=== PATIENT | female | born 1940 | race African-American/Black ===

== ENCOUNTER 2019-07-29 09:14 | Inpatient (IN) | payer MEDICARE, OTHER ==
[2019-07-29 09:58] LABS: #Lymphocytes 1.3 thou/uL (1.20-3.40); #Monocytes 0.5 thou/uL (0.11-0.59); #Neutrophils 6.5 thou/uL (1.40-6.50); %Basophils 0.3 % (0.0-1.0); %Eosinophils 0.1 % (0.0-10.0); %Lymphocytes 15.3 % (21.0-51.0); %Monocytes 5.5 % (0.0-10.0); %Neutrophils 78.8 % (42.0-75.0); Hemoglobin 14.2 g/dL (12.0-16.0); Mean Corpuscular HGB CONC 32.2 g/dL (32.0-36.0); Mean Corpuscular Hemoglobin 25.4 pg (27.0-31.0); Mean Platelet Volume 8.5 fL (7.4-10.4); Platelet Count 174 thou/uL (130-400); RBC Distribution Width 13.5 % (11.5-14.5); Red Blood Cell (RBC) Count 5.58 mill/uL (4.20-5.40); White Blood Cell (WBC) Count 8.2 thou/uL (4.8-10.8)
[2019-07-29] MEDS ORDERED: hydrALAZINE 20 MG/ML VIAL ONE (10:02)
[2019-07-29 10:07] LABS: Bacteria/HPF None Seen HPF (None Seen); Bilirubin Negative (Negative); Blood, Urine 1+ (Negative); Clarity Turbid (Clear); Glucose, Urine (Dipstick) 70 mg/dL (Negative); Leukocyte Negative Leu/uL (Negative); Mucous/LPF 1+ LPF (<2+); Nitrite Negative (Negative); Protein, Urine (Dipstick) 300 mg/dL (Neg-Trace); RBC/HPF 0-3 HPF (0-3); Squamous Epithelial 0-3 HPF (0-3); Urobilinogen Normal mg/dL (Less than 2)
--- NOTE | 2019-07-29 10:43 | CT ---
BRAIN CT WITHOUT IV CONTRAST: History: Altered mental status. FINDINGS: Several aneurysm clips overlie the suprasellar region. There is bilateral atrophy and chronic white m atter ischemic change. Prominent sinus mucosal changes, particularly the right maxillary and portions of the right sphenoid sinus. The mastoids appear clear of acute process. No mass effect or midline s hift. No acute hemorrhage. IMPRESSION: Atrophy and chronic white matter ischemic changes. Aneurysm clips overlying the suprasellar region. R ight maxillary and sphenoid sinus mucosal disease with near complete opacification of the right maxil baudilio sinus. No mass or bleed or other acute process. POS: [facility]
--- NOTE | 2019-07-29 11:10 | RAD ---
CHEST ONE VIEW: History: Altered mental status, forgetfullness. Incontinence. Comparison: 10-29-15 FINDINGS: Post underlying sternotomy. Heart size is within normal limits. No confluent pneumonia, overt edema o r pleural effusion. IMPRESSION: No significant acute intrathoracic disease. Stable from prior exam. POS: [facility]
[2019-07-29 11:19] LABS: ALT (SGPT) 17 U/L (8-55); AST (SGOT) 34 U/L (5-34); Albumin 4.1 g/dL (3.4-4.8); Alkaline Phosphatase 145 U/L (40-110); Anion Gap 18 mmol/L (10-20); BUN (Urea Nitrogen) 7 mg/dL (9.8-20.1); Bilirubin, Total 0.5 mg/dL (0.2-1.2); Calc. Creatinine Clearance 0 mL/min (70-130); Calcium 11.1 mg/dL (7.8-10.44); Carbon Dioxide 18 mmol/L (23-31); Chloride 98 mmol/L (98-107); Estimated GFR-MDRD Greater than 90; Globulin 5.4 g/dL (2.4-3.5); Glucose 112 mg/dL (83-110); Potassium 5.2 mmol/L (3.5-5.1); Protein, Total 9.5 g/dL (6.0-8.3); Sodium 129 mmol/L (136-145)
[2019-07-29] MEDS ORDERED: Ondansetron PF 4 MG/2 ML Vial IVP PRN (11:55)
[2019-07-29] MEDS ORDERED: Bisacodyl 10 MG SUPP PR PRN (11:55)
[2019-07-29] MEDS ORDERED: Senokot S 8.6-50 MG TAB PO PRN (11:55)
[2019-07-29] MEDS ORDERED: hydrALAZINE 20 MG/ML VIAL SLOW IVP PRN (11:55)
[2019-07-29] MEDS ORDERED: Calcium Carbonate 500 MG ChewTAB PO PRN (11:55)
[2019-07-29] MEDS ORDERED: Guaifenesin DM 100-10/5 ML UDCUP PO PRN (11:55)
[2019-07-29] MEDS ORDERED: Acetaminophen 325 MG TAB PO PRN (11:55)
--- NOTE | 2019-07-29 13:00 | HP ---
REASON FOR ADMISSION: Altered mental state, hyponatremia, possible CVA, hyperkalemia, dehydration, and metabolic acidosis. HISTORY OF PRESENTING ILLNESS: The patient was brought to emergency room by concerned family members as she was more confused and not oriented. Currently, there are no family members at bedside. I have tried calling them and I cannot reach both the numbers that are available on [employer] that is Alex Bacon and Alex Brandt. She does wake up to verbal stimulation but cannot provide any additional elements of history. She moves her left upper and lower extremities freely. She can move her right upper extremity some but not the right lower extremity. Further workup in the ER done showed no acute infarct on the CT. Chest x-ray was clear. Had lab abnormalities on the blood work. 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 Prior echo done in October 2015 shows ejection fraction of 65% to 70%. Aortic valve calcification but no stenosis. Possible parathyroid adenoma on a parathyroid scan done in March of 2016. Has had intracranial aneurysm with clips seen over the suprasellar region. CURRENT MEDICATIONS: Per prior records, the patient is on, 1. Aspirin 325 mg p.o. daily. 2. Coreg 6.25 mg twice daily. 3. Mucinex 1200 mg twice daily. 4. Hydrochlorothiazide 25 mg daily. 5. Moexipril 15 mg daily. 6. Crestor 20 mg daily. 7. Lasix 20 mg daily. 8. Spironolactone 12.5 mg daily. ALLERGIES: NO KNOWN DRUG ALLERGIES. PERSONAL HISTORY: Per prior records, does not abuse alcohol or drugs. No history of smoking. She lives with her family. FAMILY HISTORY: Cannot be obtained as the patient is not oriented. REVIEW OF SYSTEMS: Cannot be obtained as the patient is not oriented. CODE STATUS: Presumed to be full code as the patient is not oriented and I cannot reach family at present. PHYSICAL EXAMINATION: GENERAL: The patient is a 78-year-old female, who is currently not oriented, but not in distress. VITAL SIGNS: Blood pressure 170/84, pulse 70 per minute, respiratory rate 14 per minute, and temperature, the patient is afebrile to touch with no fever history. Saturating 94% on 2 L nasal cannula. NECK: Supple. No elevated JVD. HEENT: Eyes, pupils are 3 mm and sluggishly reacting to light. Oral cavity, mucous membranes are dry. No exudates or congestion. CARDIOVASCULAR: S1 and S2 heard. Murmur plus. Regular rhythm. RESPIRATORY: Air entry 1+ bilateral. Scattered rhonchi plus. No rales or wheezes. ABDOMEN: Soft. Bowel sounds heard. No tenderness, rigidity, or guarding. EXTREMITIES: No peripheral edema or calf tenderness. VASCULAR: Peripheral pulses 1+ bilateral. No ischemic ulcerations or gangrene. CENTRAL NERVOUS SYSTEM: No gross focal sign seen except for the patient not moving her right lower extremity. Reflexes are 2+ bilateral. Mild flattening of right nasolabial fold could be positional. Left Babinski is downgoing. Right Babinski is equivocal. Accurate strength cannot be tested as the patient is not oriented nor cooperative at present. PSYCHIATRIC: Cannot be assessed as the patient is not oriented. LABORATORY DATA: CT brain without contrast done showed no acute bleed or infarct. There is atrophy and chronic white matter ischemic changes seen. There are aneurysm clips overlying the suprasellar area. Right maxillary sinus is opacified. Chest x-ray done showed post CABG changes. No significant acute intrathoracic disease is seen. White count of 8, H and H 14 and 44, platelet count 174, MCV is 79 with 78% neutrophils. Sodium 129, potassium 5.2, serum bicarb is 18, serum glucose 112, BUN 7, creatinine 0.7. Lactic acid 1.6, serum calcium is 11, albumin is 4.1. Troponin I 0.22, alkaline phosphatase 145, AST and ALT within normal limits. CLINICAL IMPRESSION AND PLAN: The patient will be admitted to stroke unit for possible CVA on the right side, moderate dehydration, hyponatremia, metabolic acidosis, hypercalcemia, acute metabolic encephalopathy. She will be placed on half-normal saline at 75 mL per hour. We will continue aspirin, Lipitor at 40 mg daily, Coreg 6.25 mg twice daily, p.r.n. IV medications if needed, ceftriaxone for maxillary disease with a suspicion for right maxillary sinusitis. MRI brain without contrast. Echo with 2D Doppler for LV function. Blood cultures and urine cultures have been obtained. COVID-19 test has also been ordered. The patient likely has very low probability for coronavirus. She will be on clear liquid diet until she wakes up fully. We will follow stroke evidence based protocol as well. Neurology consult with Dr. Cathy Platt, who is on-call will be obtained as well. When the patient wakes up or when family responds, we will ascertain if the patient had prior surgery for her parathyroids. Her serum calcium is 11 with normal albumin. If needed, she will be placed on Lasix. She is not overly hypercalcemic at present. There is no bleed on the CT scan of the brain with prior history of aneurysmal clipping. PT, OT, and Speech evaluations will be requested. Job ID: [id number] MTDD
[2019-07-29] MEDS: cefTRIAXone\\ROCEPHIN 2 GM in Sodium Chloride 0.9% 100 ML IVPB SCH (15:06)
[2019-07-29] MEDS: Sodium Chloride 0.45% 1,000 ML IV SCH (15:07)
[2019-07-29 18:24] VITALS: BMI 37.5
[2019-07-29 18:42] LABS: Syphilis Antibody Nonreactive (Nonreactive); Syphilis Antibody Index 0.06 S/CO (<1.00 Non-Reactive)
[2019-07-29 18:56] LABS: Amphetamine Not Detected (NotDetected); Barbiturates Screen Not Detected (NotDetected); Benzodiazepine Screen Not Detected (NotDetected); Cocaine Metabolite Screen Not Detected (NotDetected); Medtox Control Line Valid? VALID (VALID); Medtox Reader # READER 4; Methadone Not Detected (NotDetected); Methamphetamine Not Detected (NotDetected); Opiate Screen Not Detected (NotDetected); Oxycodone Screen Not Detected (NotDetected); Phencyclidine (PCP) Not Detected (NotDetected); THC/Cannabinoid Screen Not Detected (NotDetected); Tricyclic Screen Not Detected (NotDetected)
[2019-07-29] MEDS: Atorvastatin Calcium 40 MG TAB PO SCH ×2 (20:08→20:52)
[2019-07-29] MEDS: Carvedilol 6.25 MG TAB PO SCH ×2 (20:08→20:52)
[2019-07-29] MEDS: Acetaminophen 650 MG Suppository PR PRN (22:55)
[2019-07-30] MEDS: Sodium Chloride 0.45% 1,000 ML IV SCH ×2 (04:31→17:26)
[2019-07-30 06:02] LABS: #Lymphocytes 1.5 thou/uL (1.20-3.40); #Neutrophils 6.7 thou/uL (1.40-6.50); %Basophils 0.1 % (0.0-1.0); %Eosinophils 0.2 % (0.0-10.0); %Lymphocytes 16.6 % (21.0-51.0); %Monocytes 10.5 % (0.0-10.0); %Neutrophils 72.6 % (42.0-75.0); Hemoglobin 13.5 g/dL (12.0-16.0); Mean Corpuscular HGB CONC 33.7 g/dL (32.0-36.0); Mean Corpuscular Hemoglobin 26.2 pg (27.0-31.0); Mean Platelet Volume 8.2 fL (7.4-10.4); Platelet Count 147 thou/uL (130-400); RBC Distribution Width 13.4 % (11.5-14.5); Red Blood Cell (RBC) Count 5.14 mill/uL (4.20-5.40); White Blood Cell (WBC) Count 9.2 thou/uL (4.8-10.8)
[2019-07-30 06:22] LABS: Anion Gap 14 mmol/L (10-20); BUN (Urea Nitrogen) 7 mg/dL (9.8-20.1); Calc. Creatinine Clearance 104 mL/min (70-130); Calcium 10.7 mg/dL (7.8-10.44); Carbon Dioxide 19 mmol/L (23-31); Cardiac Risk 3.2 (Less than 4.5); Chloride 99 mmol/L (98-107); Cholesterol 112 mg/dl (< 200 Desired); Estimated GFR-MDRD Greater than 90; Glucose 92 mg/dL (83-110); HDL Cholesterol 35 mg/dL (>60 Neg Risk); LDL Cholesterol, Calculated 67 mg/dL; Potassium 3.2 mmol/L (3.5-5.1); Sodium 129 mmol/L (136-145); Triglycerides 51 mg/dL (Less than 150)
[2019-07-30] MEDS ORDERED: Aspirin 325 mg Enteric Coated Tablet PO SCH (09:00)
[2019-07-30] MEDS ORDERED: FLUTICASONE FUROATE EA NARE SCH (09:00)
[2019-07-30] MEDS ORDERED: Prevnar 13-Val Conj/PF 0.5 ML SYRINGE IM ONE (09:00)
[2019-07-30] MEDS: Carvedilol 6.25 MG TAB PO SCH ×2 (09:25→21:48)
[2019-07-30] MEDS: Enoxaparin Sodium 40 MG/0.4 ML SYRINGE SC SCH (09:25)
--- NOTE | 2019-07-30 10:38 | PDOC.HOSPP ---
- Subjective Encounter Date: 07/30/19 Encounter Time: 08:00 Subjective: not oriented, is in restraints no sob, does not follow verbal stimuli moves all extremities except right lower - Objective Vital Signs & Weight: Vital Signs (12 hours) Temp Pulse Resp BP Pulse Ox 07/30/19 04:00 98.7 F 86 22 H 129/101 H 97 07/30/19 02:03 106 H 178/106 H 07/29/19 23:15 99.5 F 121 H 22 H 185/114 H 96 Weight Weight 205 lb 7.533 oz I&O: 07/29/19 07/30/19 07/31/19 06:59 06:59 06:59 Intake Total 550 Output Total 1200 Balance -650 Result Diagrams: 07/30/19 05:52 07/30/19 05:52 Hospitalist ROS - Medication Medications: Active Medications Generic Name Dose Route Start Last Admin Trade Name Freq PRN Reason Stop Dose Admin Acetaminophen 650 mg 07/29/19 11:55 07/29/19 22:55 Tylenol [place] 650 mg Q4H PRN Administration Headache/Fever/Mild Pain (1-3) Aspirin 325 mg 07/30/19 09:00 07/30/19 09:25 Ecotrin PO 325 mg DAILY MICHAEL Administration Atorvastatin Calcium 40 mg 07/29/19 21:00 07/29/19 20:52 Lipitor PO Not Given HS MICHAEL Carvedilol 6.25 mg 07/29/19 21:00 07/30/19 09:25 Coreg PO 6.25 mg BID MICHAEL Administration Enoxaparin Sodium 40 mg 07/30/19 09:00 07/30/19 09:25 Lovenox SC 40 mg 0900 MICHAEL Administration Sodium Chloride 1,000 mls @ 75 mls/hr 07/29/19 12:00 07/30/19 04:31 1/2 Normal Saline IV 1,000 mls .[id number] MICHAEL Administration Ceftriaxone Sodium 2 gm/ 100 mls @ 200 mls/hr 07/29/19 12:00 07/29/19 15:06 Sodium Chloride IVPB 100 mls Q24HR MICHAEL Administration - Exam General Appearance: ill appearing Eye: PERRL, anicteric sclera ENT: no oropharyngeal lesions, dry oral mucosa Neck: supple, no JVD Heart: RRR, no murmur Respiratory: no wheezes, no rales Gastrointestinal: soft, non-tender, non-distended, normal bowel sounds Extremities: no cyanosis, no edema Neurological: hemiplegia, speech deficit Hosp A/P (1) Acute CVA (cerebrovascular accident) Code(s): I63.9 - CEREBRAL INFARCTION, UNSPECIFIED Status: Suspected (2) Acute metabolic encephalopathy Code(s): G93.41 - METABOLIC ENCEPHALOPATHY Status: Acute (3) Metabolic acidosis Code(s): E87.2 - ACIDOSIS Status: Acute (4) Dehydration Code(s): E86.0 - DEHYDRATION Status: Acute (5) CAD (coronary artery disease) Code(s): I25.10 - ATHSCL HEART DISEASE OF [place] CORONARY ARTERY W/O ANG PCTRS Status: Chronic Qualifiers: Coronary Disease-Associated Artery/Lesion type: bypass graft [place] vs. transplanted heart: [place] heart (6) HLD (hyperlipidemia) Code(s): E78.5 - HYPERLIPIDEMIA, UNSPECIFIED Status: Chronic Qualifiers: Hyperlipidemia type: unspecified Qualified Code(s): E78.5 - Hyperlipidemia , unspecified (7) HTN (hypertension) Code(s): I10 - ESSENTIAL (PRIMARY) HYPERTENSION Status: Chronic Qualifiers: Hypertension type: essential hypertension Qualified Code(s): I10 - Essential (primary) hypertension (8) RBBB Code(s): I45.10 - UNSPECIFIED RIGHT BUNDLE-BRANCH BLOCK Status: Chronic (9) Parathyroid adenoma Code(s): D35.1 - BENIGN NEOPLASM OF PARATHYROID GLAND Status: Suspected - Plan is still encephalopathic is seen moving left extremities better than right upper, not moving much of right LE await MRI await covid results, unlikely to have it? gentle iv hydration, speech eval for oral intake d/w son over phone this am, gave full updates, she is normally oriented and ambulates in the house, he lives with her. number to reach him is [phone] (phone # on [employer] is not accurate) prognosis is guarded, son wants her to be full code continue aspirin, lipitor, coreg, ceftiaxone for suspected uti, prelim blood cs are -ve, urine is still pending.
[2019-07-30] MEDS: cefTRIAXone\\ROCEPHIN 2 GM in Sodium Chloride 0.9% 100 ML IVPB SCH (12:38)
--- NOTE | 2019-07-30 14:54 | CON ---
DATE OF TELENEUROLOGY CONSULTATION: 07/30/2019 CHIEF COMPLAINT: Acute altered mental status. HISTORY OF PRESENT ILLNESS: The patient was completely unable to give us any medical history. Most of her history was obtained from her chart. The patient stares and looks around, but does not interact. Per chart, the patient was brought by concerned family members to the hospital because she was very confused and disoriented. She cannot provide much history. PREVIOUS MEDICAL HISTORY: Notable for coronary artery disease with coronary artery bypass graft, hypertension, obesity, dyslipidemia, polyp removal on colonoscopy , an EF of 65% to 70% with aortic valve calcification, and she also has history of parathyroid adenoma and intracranial aneurysm repair. MEDICATIONS AT HOME: Include: 1. Aspirin. 2. Coreg. 3. Mucinex. 4. Hydrochlorothiazide. 5. Moexipril. 6. Crestor. 7. Lasix. 8. Spironolactone. ALLERGIES: NO KNOWN DRUG ALLERGIES. FAMILY HISTORY: Cannot be obtained. REVIEW OF SYSTEMS: Unobtainable. SOCIAL HISTORY: Unobtainable. REVIEW OF SYSTEMS: Unobtainable. LABORATORY AND DIAGNOSTIC DATA: Lab workup so far: White count 9.2, hemoglobin 13.5, hematocrit 40, platelet count 147. Chemistry; sodium 129, potassium 3.2, chloride 99, bicarb 19, BUN 7, creatinine 0.68, glucose 92. Lipid profile is within normal limits. TSH 0.22. Urinalysis is negative. Syphilis serology is negative. Tox screen is also negative. She did have a CT of the head on arrival, which showed atrophy, chronic white matter ischemic changes, aneurysm clips overlying suprasellar region. Her MRI is currently pending. She is also COVID rule out. PHYSICAL EXAMINATION: VITAL SIGNS: Temperature 99.1, pulse 102, respiratory rate 18, O2 saturations 96, blood pressure 186/102. GENERAL APPEARANCE: Well-built, well-nourished lady, who seems to be comfortable in her bed and stares, looks around, but does not follow any commands. She does not interact at all. CHEST: Clear vesicular breathing. CARDIOVASCULAR: S1, S2 heard. No murmurs. NEUROLOGIC: Higher intellectual functions. Does not interact with the examiner. The most we could get out of her was thank you and she did say her name was Alix. She cannot follow any commands. Cranial nerves 2 through 12; pupils reactive to light bilaterally. She had a threat response bilaterally for vision testing. She seems to have normal hearing. No facial asymmetry noted. Tongue and oral cavity, unable to examine, the patient does not open her mouth. Motor examination; she does move extremities to stimulus. There might be a subtle weakness on the right side. Cerebellar and sensory, unable to examine. IMPRESSION AND PLAN: The patient is a 78-year-old lady with a some pre- existing medical problems. She is brought in with altered mental status. Primary metabolic issues seem to be hyponatremia, hypothyroidism, and her calcium is also abnormal. She has hypercalcemia and is pending further workup about her parathyroid status. At this time, she is cognitively impaired. She does not seem to follow commands and seems to have mainly metabolic encephalopathy. When able to, please obtain MRI to rule out any vascular issues and call Neurology as needed for further consultation and recommendations. I do not think this is a primary neurological issue such as a seizure or stroke or encephalitis based on her current workup. She seems to mostly have metabolic encephalopathy likely secondary to hyponatremia and hypercalcemia. Please call if you need any further assistance. Job ID: [id number] [facility]ITALFlaquito
[2019-07-30] MEDS: Atorvastatin Calcium 40 MG TAB PO SCH (21:48)
[2019-07-31 05:56] LABS: #Eosinphils 0.1 thou/uL (0.0-0.7); #Lymphocytes 1.2 thou/uL (1.20-3.40); #Monocytes 0.7 thou/uL (0.11-0.59); #Neutrophils 5.5 thou/uL (1.40-6.50); %Basophils 0.5 % (0.0-1.0); %Eosinophils 1.6 % (0.0-10.0); %Monocytes 9.1 % (0.0-10.0); %Neutrophils 72.9 % (42.0-75.0); Hemoglobin 13.4 g/dL (12.0-16.0); Mean Corpuscular HGB CONC 32.6 g/dL (32.0-36.0); Mean Corpuscular Hemoglobin 25.5 pg (27.0-31.0); Mean Corpuscular Volume 78.1 fL (78.0-98.0); Mean Platelet Volume 7.8 fL (7.4-10.4); Platelet Count 143 thou/uL (130-400); RBC Distribution Width 13.4 % (11.5-14.5); Red Blood Cell (RBC) Count 5.25 mill/uL (4.20-5.40); White Blood Cell (WBC) Count 7.6 thou/uL (4.8-10.8)
[2019-07-31 06:17] LABS: Anion Gap 13 mmol/L (10-20); BUN (Urea Nitrogen) 9 mg/dL (9.8-20.1); Calc. Creatinine Clearance 117 mL/min (70-130); Calcium 10.3 mg/dL (7.8-10.44); Carbon Dioxide 19 mmol/L (23-31); Chloride 102 mmol/L (98-107); Estimated GFR-MDRD Greater than 90; Glucose 79 mg/dL (83-110); Potassium 3.1 mmol/L (3.5-5.1); Sodium 131 mmol/L (136-145)
[2019-07-31] MEDS: Sodium Chloride 0.45% 1,000 ML IV SCH ×2 (06:24→22:11)
[2019-07-31] MEDS: Carvedilol 6.25 MG TAB PO SCH ×2 (08:20→20:47)
[2019-07-31] MEDS: Aspirin 325 MG TAB PO SCH (08:20)
[2019-07-31] MEDS: Enoxaparin Sodium 40 MG/0.4 ML SYRINGE SC SCH (08:20)
--- NOTE | 2019-07-31 08:45 | PDOC.HOSPP ---
- Subjective Encounter Date: 07/31/19 Encounter Time: 08:43 - Objective Vital Signs & Weight: Vital Signs (12 hours) Temp Pulse Resp BP BP Pulse Ox 07/31/19 04:16 97.0 F L 96 16 158/90 H 96 07/31/19 00:00 97.7 F 94 18 164/90 H 94 L 07/30/19 23:06 96 07/30/19 21:48 174/92 H Weight Weight 205 lb 7.533 oz I&O: 07/30/19 07/31/19 08/01/19 06:59 06:59 06:59 Intake Total 550 1845 Output Total 1200 1100 Balance -650 745 Result Diagrams: 07/31/19 05:50 07/31/19 05:50 Hospitalist ROS - Medication Medications: Active Medications Generic Name Dose Route Start Last Admin Trade Name Freq PRN Reason Stop Dose Admin Acetaminophen 650 mg 07/29/19 11:55 07/29/19 22:55 Tylenol IN 650 mg Q4H PRN Administration Headache/Fever/Mild Pain (1-3) Aspirin 325 mg 07/31/19 09:00 07/31/19 08:20 Aspirin PO 325 mg DAILY MICHAEL Administration Atorvastatin Calcium 40 mg 07/29/19 21:00 07/30/19 21:48 Lipitor PO 40 mg HS MICHAEL Administration Carvedilol 6.25 mg 07/29/19 21:00 07/31/19 08:20 Coreg PO 6.25 mg BID MICHAEL Administration Enoxaparin Sodium 40 mg 07/30/19 09:00 07/31/19 08:20 Lovenox SC 40 mg 0900 MICHAEL Administration Sodium Chloride 1,000 mls @ 75 mls/hr 07/29/19 12:00 07/31/19 06:24 1/2 Normal Saline IV 1,000 mls .[id number] MICHAEL Administration Ceftriaxone Sodium 2 gm/ 100 mls @ 200 mls/hr 07/29/19 12:00 07/30/19 12:38 Sodium Chloride IVPB 100 mls Q24HR MICHAEL Administration - Exam Eye: PERRL, anicteric sclera ENT: normocephalic atraumatic, no oropharyngeal lesions Neck: supple, symmetric, no JVD, no thyromegaly Heart: RRR, no murmur, no gallops Respiratory: CTAB, no wheezes, no rales Gastrointestinal: soft, non-tender, non-distended Neurological: cranial nerve grossly intact Neurological - other findings: does not follow commands, spontaneously moves extremities Psychiatric: not oriented, flat affect Hosp A/P (1) Acute metabolic encephalopathy Code(s): G93.41 - METABOLIC ENCEPHALOPATHY Status: Acute (2) Dehydration Code(s): E86.0 - DEHYDRATION Status: Acute (3) Metabolic acidosis Code(s): E87.2 - ACIDOSIS Status: Acute (4) Acute CVA (cerebrovascular accident) Code(s): I63.9 - CEREBRAL INFARCTION, UNSPECIFIED Status: Suspected (5) Parathyroid adenoma Code(s): D35.1 - BENIGN NEOPLASM OF PARATHYROID GLAND Status: Suspected (6) CAD (coronary artery disease) Code(s): I25.10 - ATHSCL HEART DISEASE OF [place] CORONARY ARTERY W/O ANG PCTRS Status: Chronic Qualifiers: Coronary Disease-Associated Artery/Lesion type: bypass graft [place] vs. transplanted heart: [place] heart (7) HLD (hyperlipidemia) Code(s): E78.5 - HYPERLIPIDEMIA, UNSPECIFIED Status: Chronic Qualifiers: Hyperlipidemia type: unspecified Qualified Code(s): E78.5 - Hyperlipidemia , unspecified (8) HTN (hypertension) Code(s): I10 - ESSENTIAL (PRIMARY) HYPERTENSION Status: Chronic Qualifiers: Hypertension type: essential hypertension Qualified Code(s): I10 - Essential (primary) hypertension (9) RBBB Code(s): I45.10 - UNSPECIFIED RIGHT BUNDLE-BRANCH BLOCK Status: Chronic (10) Hypokalemia Code(s): E87.6 - HYPOKALEMIA Status: Acute (11) Hyponatremia Code(s): E87.1 - HYPO-OSMOLALITY AND HYPONATREMIA Status: Acute - Plan old records reviewed/req, DVT proph w/lovenox Admitted for CVA, Metabolic encephalopathy, CVA Replace electrolytes for hypokalemia and hyponatremia Continue PT/OT Continue aspirin and statin Pending MRI and echo Discuss placement
[2019-07-31 11:18] LABS: ANA Symphony (Qualitative) Negative (Negative); ANA Symphony (Quantitative) 0.3 Ratio (< 0.7 Negative); dsDNA IgG Antibody 1.8 IU/mL (<10 Negative)
[2019-07-31] MEDS ORDERED: Prevnar 13-Val Conj/PF 0.5 ML SYRINGE IM ONE (12:00)
[2019-07-31] MEDS: cefTRIAXone\\ROCEPHIN 2 GM in Sodium Chloride 0.9% 100 ML IVPB SCH (12:15)
[2019-07-31] MEDS: Labetalol HCl 100 MG/20 ML VIAL SLOW IVP PRN (19:24)
[2019-07-31] MEDS: Atorvastatin Calcium 40 MG TAB PO SCH (20:47)
[2019-08-01] MEDS: Labetalol HCl 100 MG/20 ML VIAL SLOW IVP PRN (04:23)
[2019-08-01] MEDS: Enoxaparin Sodium 40 MG/0.4 ML SYRINGE SC SCH (09:47)
[2019-08-01] MEDS: Carvedilol 6.25 MG TAB PO SCH ×3 (09:56→20:23)
[2019-08-01] MEDS: Aspirin 325 MG TAB PO SCH (09:56)
[2019-08-01] MEDS: Sodium Chloride 0.45% 1,000 ML IV SCH (12:17)
[2019-08-01] MEDS: cefTRIAXone\\ROCEPHIN 2 GM in Sodium Chloride 0.9% 100 ML IVPB SCH (12:18)
[2019-08-01] MEDS ORDERED: Lorazepam 2 MG/ML VIAL SLOW IVP SCH (13:00)
[2019-08-01] MEDS: Lactated Ringer's 1,000 ML IV SCH (13:30)
--- NOTE | 2019-08-01 15:04 | PDOC.HOSPP ---
- Subjective Encounter Date: 08/01/19 Encounter Time: 15:00 Subjective: not speaking - Objective Vital Signs & Weight: Vital Signs (12 hours) Temp Pulse Pulse Pulse Resp BP BP 08/01/19 12:17 08/01/19 12:12 97.5 F L 115 H 20 08/01/19 10:17 121 H 122 H 186/104 H 08/01/19 10:13 121 H 122 H 186/104 H 08/01/19 08:00 97.9 F 111 H 20 08/01/19 06:27 08/01/19 04:23 115 H 208/110 H 08/01/19 04:10 99.8 F H 20 BP BP Pulse Ox 08/01/19 12:17 208/116 H 08/01/19 12:12 175/134 H 94 L 08/01/19 10:17 164/134 H 08/01/19 10:13 164/134 H 08/01/19 08:00 144/100 H 96 08/01/19 06:27 182/112 H 08/01/19 04:23 08/01/19 04:10 94 L Weight Admit Weight 205 lb 7.52 oz Weight 205 lb 7.52 oz I&O: 07/31/19 08/01/19 08/02/19 06:59 06:59 06:59 Intake Total 1845 939 Output Total 1100 1100 Balance 745 -161 Result Diagrams: 07/31/19 05:50 07/31/19 05:50 Hospitalist ROS - Review of Systems ROS unobtainable: due to mental status - Medication Medications: Active Medications Generic Name Dose Route Start Last Admin Trade Name Freq PRN Reason Stop Dose Admin Acetaminophen 650 mg 07/29/19 11:55 07/29/19 22:55 Tylenol [place] 650 mg Q4H PRN Administration Headache/Fever/Mild Pain (1-3) Aspirin 325 mg 07/31/19 09:00 08/01/19 09:56 Aspirin PO Not Given DAILY [facility] Atorvastatin Calcium 40 mg 07/29/19 21:00 07/31/19 20:47 Lipitor PO Not Given HS [facility] Carvedilol 6.25 mg 07/29/19 21:00 08/01/19 09:56 Coreg PO Not Given BID [facility] Enoxaparin Sodium 40 mg 07/30/19 09:00 08/01/19 09:47 Lovenox SC 40 mg 0900 MICHAEL Administration Ceftriaxone Sodium 2 gm/ 100 mls @ 200 mls/hr 07/29/19 12:00 08/01/19 12:18 Sodium Chloride IVPB 100 mls Q24HR MICHAEL Administration Lactated Ringer's 1,000 mls @ 75 mls/hr 08/01/19 13:00 08/01/19 13:30 Lactated Ringer's IV 1,000 mls .[id number] MICHAEL Administration Labetalol HCl 20 mg 07/29/19 11:55 08/01/19 04:23 Normodyne SLOW IVP 20 mg Q1H PRN Administration BP > 220/110 Sodium Chloride 10 ml 07/29/19 11:55 07/31/19 20:18 Flush - Normal Saline IVF 10 ml PRN PRN Administration Saline Flush - Exam General Appearance: NAD Eye: PERRL, anicteric sclera ENT: normocephalic atraumatic, no oropharyngeal lesions Neck: supple, symmetric, no JVD Heart: RRR, no murmur, no gallops Respiratory: CTAB, no wheezes, no rales Gastrointestinal: soft, non-tender, non-distended Extremities: no cyanosis, no clubbing Skin: normal turgor, no lesions, no rashes Neurological - other findings: not following commands Hosp A/P (1) Acute metabolic encephalopathy Code(s): G93.41 - METABOLIC ENCEPHALOPATHY Status: Acute (2) Dehydration Code(s): E86.0 - DEHYDRATION Status: Acute (3) Metabolic acidosis Code(s): E87.2 - ACIDOSIS Status: Acute (4) Acute CVA (cerebrovascular accident) Code(s): I63.9 - CEREBRAL INFARCTION, UNSPECIFIED Status: Suspected (5) Parathyroid adenoma Code(s): D35.1 - BENIGN NEOPLASM OF PARATHYROID GLAND Status: Suspected (6) CAD (coronary artery disease) Code(s): I25.10 - ATHSCL HEART DISEASE OF [place] CORONARY ARTERY W/O ANG PCTRS Status: Chronic Qualifiers: Coronary Disease-Associated Artery/Lesion type: bypass graft [place] vs. transplanted heart: [place] heart (7) HLD (hyperlipidemia) Code(s): E78.5 - HYPERLIPIDEMIA, UNSPECIFIED Status: Chronic Qualifiers: Hyperlipidemia type: unspecified Qualified Code(s): E78.5 - Hyperlipidemia , unspecified (8) HTN (hypertension) Code(s): I10 - ESSENTIAL (PRIMARY) HYPERTENSION Status: Chronic Qualifiers: Hypertension type: essential hypertension Qualified Code(s): I10 - Essential (primary) hypertension (9) RBBB Code(s): I45.10 - UNSPECIFIED RIGHT BUNDLE-BRANCH BLOCK Status: Chronic (10) Hypokalemia Code(s): E87.6 - HYPOKALEMIA Status: Acute (11) Hyponatremia Code(s): E87.1 - HYPO-OSMOLALITY AND HYPONATREMIA Status: Acute - Plan Admitted for CVA, Metabolic encephalopathy, CTH did not show any acute changes Replace electrolytes for hypokalemia and hyponatremia: Ringer lactate Patient not eating now. May need TPN soon Continue PT/OT Continue aspirin and statin Pending MRI: Clips for aneurysm in the past. Not sure if that is MRI Compatible and echo results pendinh Discuss placement with family.
[2019-08-01] MEDS ORDERED: cloNIDine 0.2mg/24 Hour PATCH TD SCH (15:30)
[2019-08-01] MEDS: Atorvastatin Calcium 40 MG TAB PO SCH ×2 (20:13→20:23)
[2019-08-01 20:55] LABS: #Lymphocytes 1.1 thou/uL (1.20-3.40); #Monocytes 1.3 thou/uL (0.11-0.59); #Neutrophils 10.2 thou/uL (1.40-6.50); %Basophils 0.3 % (0.0-1.0); %Eosinophils 0.1 % (0.0-10.0); %Lymphocytes 8.4 % (21.0-51.0); %Monocytes 10.1 % (0.0-10.0); %Neutrophils 81.1 % (42.0-75.0); Hemoglobin 13.7 g/dL (12.0-16.0); Mean Corpuscular HGB CONC 33.8 g/dL (32.0-36.0); Mean Corpuscular Hemoglobin 26.4 pg (27.0-31.0); Mean Corpuscular Volume 78.1 fL (78.0-98.0); Platelet Count 151 thou/uL (130-400); RBC Distribution Width 13.3 % (11.5-14.5); Red Blood Cell (RBC) Count 5.17 mill/uL (4.20-5.40); White Blood Cell (WBC) Count 12.6 thou/uL (4.8-10.8)
[2019-08-01 21:09] LABS: Lactic Acid 1.2 mmol/L (0.5-2.2)
[2019-08-01 21:13] LABS: Anion Gap 15 mmol/L (10-20); BUN (Urea Nitrogen) 9 mg/dL (9.8-20.1); Calc. Creatinine Clearance 117 mL/min (70-130); Calcium 10.5 mg/dL (7.8-10.44); Carbon Dioxide 19 mmol/L (23-31); Chloride 99 mmol/L (98-107); Estimated GFR-MDRD Greater than 90; Glucose 101 mg/dL (83-110); Magnesium 1.9 mg/dL (1.6-2.6); Sodium 130 mmol/L (136-145)
[2019-08-01 21:20] LABS: Potassium 2.8 mmol/L (3.5-5.1)
[2019-08-01] MEDS ORDERED: Metoprolol Tartrate 5 MG/5 ML VIAL IVP SCH ×2 (22:00→23:00)
[2019-08-01] MEDS ORDERED: Potassium Chloride 40 MEQ in Sodium Chloride 0.9% 250 ML 250 ML IVPB SCH (22:00)
[2019-08-02] MEDS: Acetaminophen 650 MG Suppository PR PRN (01:40)
[2019-08-02] MEDS: Labetalol HCl 100 MG/20 ML VIAL SLOW IVP PRN ×4 (01:41→16:11)
[2019-08-02] MEDS ORDERED: Potassium Chloride 40 MEQ in Sodium Chloride 0.9% 250 ML 250 ML IVPB SCH (02:00)
[2019-08-02] MEDS: Lactated Ringer's 1,000 ML IV SCH ×3 (02:55→22:56)
[2019-08-02 06:28] LABS: Anion Gap 13 mmol/L (10-20); BUN (Urea Nitrogen) 10 mg/dL (9.8-20.1); Calc. Creatinine Clearance 119 mL/min (70-130); Calcium 10.5 mg/dL (7.8-10.44); Carbon Dioxide 20 mmol/L (23-31); Chloride 104 mmol/L (98-107); Estimated GFR-MDRD Greater than 90; Glucose 93 mg/dL (83-110); Potassium 3.9 mmol/L (3.5-5.1); Sodium 133 mmol/L (136-145)
--- NOTE | 2019-08-02 07:34 | RAD ---
PORTABLE CHEST: DATE: 08/02/2019. PROVIDED CLINICAL HISTORY: Tachypnea. FINDINGS: Comparison 07/29/2019. The cardiac silhouette appears enlarged, which may be at least partially on th e basis of portable technique. Median sternotomy changes and atherosclerosis are redemonstrated. Pr ominence of the pulmonary vasculature and pulmonary interstitium. No focal consolidation, pleural fl uid, or pneumothorax apparent. IMPRESSION: Findings suggestive congestive failure/volume overload. POS: JUAN A
[2019-08-02] MEDS: Enoxaparin Sodium 40 MG/0.4 ML SYRINGE SC SCH (08:42)
[2019-08-02] MEDS: Aspirin 325 MG TAB PO SCH (08:51)
[2019-08-02] MEDS: Carvedilol 6.25 MG TAB PO SCH ×2 (08:51→20:50)
--- NOTE | 2019-08-02 14:01 | EKG ---
Test Reason : STAT Blood Pressure : / mmHG Vent. Rate : 128 BPM Atrial Rate : 128 BPM P-R Int : 114 ms QRS Dur : 136 ms QT Int : 354 ms P-R-T Axes : 023 161 025 degrees QTc Int : 516 ms Sinus tachycardia Indeterminate axis Right bundle branch block Abnormal ECG When compared with ECG of 29-JUL-2019 09:43, (Unconfirmed) Premature atrial complexes are no longer Present Vent. rate has increased BY 46 BPM QRS axis Shifted right Confirmed by DR. Amina WALKER (3) on 08/02/2019 2:01:23 PM Referred By: JOSÉ LUIS Confirmed By:DR. Amina WALKER
--- NOTE | 2019-08-02 15:15 | PDOC.HOSPP ---
- Subjective Encounter Date: 08/02/19 Encounter Time: 15:14 non-verbal - Objective Vital Signs & Weight: Vital Signs (12 hours) Temp Pulse Pulse Resp BP BP BP 08/02/19 13:21 112 H 194/92 H 08/02/19 11:47 107 H 26 H 129/84 08/02/19 09:55 157/80 H 08/02/19 09:19 242/142 H 08/02/19 08:51 178/125 H 08/02/19 08:00 97.9 F 116 H 17 200/105 H 08/02/19 06:04 115 H 184/106 H Pulse Ox 08/02/19 13:21 08/02/19 11:47 96 08/02/19 09:55 08/02/19 09:19 08/02/19 08:51 08/02/19 08:00 95 08/02/19 06:04 Weight Admit Weight 205 lb 7.52 oz Weight 205 lb 7.52 oz I&O: 08/01/19 08/02/19 08/03/19 06:59 06:59 06:59 Intake Total 939 1482 Output Total 1100 750 Balance -161 732 Result Diagrams: 08/01/19 20:42 08/02/19 06:00 Hospitalist ROS - Review of Systems ROS unobtainable: due to mental status - Medication Medications: Active Medications Generic Name Dose Route Start Last Admin Trade Name Freq PRN Reason Stop Dose Admin Acetaminophen 650 mg 07/29/19 11:55 08/02/19 01:40 Tylenol [place] 650 mg Q4H PRN Administration Headache/Fever/Mild Pain (1-3) Aspirin 325 mg 07/31/19 09:00 08/02/19 08:51 Aspirin PO Not Given DAILY [facility] Atorvastatin Calcium 40 mg 07/29/19 21:00 08/01/19 20:23 Lipitor PO Not Given HS MICHAEL Carvedilol 6.25 mg 07/29/19 21:00 08/02/19 08:51 Coreg PO Not Given BID MICHAEL Enoxaparin Sodium 40 mg 07/30/19 09:00 08/02/19 08:42 Lovenox SC 40 mg 0900 MICHAEL Administration Hydralazine HCl 10 mg 07/29/19 11:55 08/01/19 16:04 Apresoline SLOW IVP 10 mg Q4H PRN Administration BP > 180/90 Lactated Ringer's 1,000 mls @ 75 mls/hr 08/01/19 13:00 08/02/19 02:55 Lactated Ringer's IV Not Given .[id number] MICHAEL Labetalol HCl 20 mg 07/29/19 11:55 08/02/19 09:19 Normodyne SLOW IVP 20 mg Q1H PRN Administration BP > 180/90 Sodium Chloride 10 ml 07/29/19 11:55 07/31/19 20:18 Flush - Normal Saline IVF 10 ml PRN PRN Administration Saline Flush - Exam General - other findings: awake, not alert Eye: PERRL, anicteric sclera ENT: normocephalic atraumatic, no oropharyngeal lesions Neck: supple, symmetric, no JVD, no thyromegaly Heart: RRR, no murmur, no gallops Respiratory: CTAB, no wheezes, no rales, no ronchi Gastrointestinal: soft, non-tender, non-distended, normal bowel sounds Neurological: speech deficit Neurological - other findings: not moving any extremities, not following commans not oriented, not eating, Hosp A/P (1) Acute metabolic encephalopathy Code(s): G93.41 - METABOLIC ENCEPHALOPATHY Status: Acute (2) Dehydration Code(s): E86.0 - DEHYDRATION Status: Acute (3) Metabolic acidosis Code(s): E87.2 - ACIDOSIS Status: Acute (4) Acute CVA (cerebrovascular accident) Code(s): I63.9 - CEREBRAL INFARCTION, UNSPECIFIED Status: Suspected (5) Parathyroid adenoma Code(s): D35.1 - BENIGN NEOPLASM OF PARATHYROID GLAND Status: Suspected (6) CAD (coronary artery disease) Code(s): I25.10 - ATHSCL HEART DISEASE OF [place] CORONARY ARTERY W/O ANG PCTRS Status: Chronic Qualifiers: Coronary Disease-Associated Artery/Lesion type: bypass graft [place] vs. transplanted heart: [place] heart (7) HLD (hyperlipidemia) Code(s): E78.5 - HYPERLIPIDEMIA, UNSPECIFIED Status: Chronic Qualifiers: Hyperlipidemia type: unspecified Qualified Code(s): E78.5 - Hyperlipidemia , unspecified (8) HTN (hypertension) Code(s): I10 - ESSENTIAL (PRIMARY) HYPERTENSION Status: Chronic Qualifiers: Hypertension type: essential hypertension Qualified Code(s): I10 - Essential (primary) hypertension (9) RBBB Code(s): I45.10 - UNSPECIFIED RIGHT BUNDLE-BRANCH BLOCK Status: Chronic (10) Hypokalemia Code(s): E87.6 - HYPOKALEMIA Status: Acute (11) Hyponatremia Code(s): E87.1 - HYPO-OSMOLALITY AND HYPONATREMIA Status: Acute - Plan Admitted for CVA, Metabolic encephalopathy, CTH did not show any acute changes Work up so far has been negative. Pending MRI: Clips for aneurysm in the past. Not sure if that is MRI Compatible and echo with preserved EF I strongly suspect CVA. Patient at home was Oriented X 3 and independent of ADL. This decline is sudden as per family Palliative care consulted for goasl of care, DC planning HTN: Cannot give any oral meds, started on Clonidine patch Replace electrolytes for hypokalemia and hyponatremia: Ringer lactate Patient not eating now. May need TPN/ PEG soon Continue PT/OT Continue aspirin and statin Discuss placement with family.
[2019-08-02] MEDS: Atorvastatin Calcium 40 MG TAB PO SCH (20:50)
[2019-08-03 08:24] LABS: #Eosinphils 0.2 thou/uL (0.0-0.7); #Monocytes 0.7 thou/uL (0.11-0.59); #Neutrophils 7.9 thou/uL (1.40-6.50); %Basophils 0.5 % (0.0-1.0); %Eosinophils 1.7 % (0.0-10.0); %Lymphocytes 10.3 % (21.0-51.0); %Monocytes 6.7 % (0.0-10.0); %Neutrophils 80.8 % (42.0-75.0); Hemoglobin 13.4 g/dL (12.0-16.0); Mean Corpuscular HGB CONC 32.9 g/dL (32.0-36.0); Mean Corpuscular Hemoglobin 26.4 pg (27.0-31.0); Mean Corpuscular Volume 80.3 fL (78.0-98.0); Mean Platelet Volume 8.4 fL (7.4-10.4); Platelet Count 133 thou/uL (130-400); RBC Distribution Width 13.9 % (11.5-14.5); Red Blood Cell (RBC) Count 5.08 mill/uL (4.20-5.40); White Blood Cell (WBC) Count 9.7 thou/uL (4.8-10.8)
[2019-08-03] MEDS: Carvedilol 6.25 MG TAB PO SCH ×2 (08:33→20:21)
[2019-08-03] MEDS: Aspirin 325 MG TAB PO SCH (08:34)
[2019-08-03] MEDS: Enoxaparin Sodium 40 MG/0.4 ML SYRINGE SC SCH (08:35)
[2019-08-03 08:45] LABS: ALT (SGPT) 10 U/L (8-55); AST (SGOT) 19 U/L (5-34); Albumin 3.1 g/dL (3.4-4.8); Alkaline Phosphatase 91 U/L (40-110); Anion Gap 14 mmol/L (10-20); BUN (Urea Nitrogen) 10 mg/dL (9.8-20.1); Bilirubin, Total 0.7 mg/dL (0.2-1.2); Calc. Creatinine Clearance 119 mL/min (70-130); Calcium 10.3 mg/dL (7.8-10.44); Carbon Dioxide 22 mmol/L (23-31); Chloride 103 mmol/L (98-107); Estimated GFR-MDRD Greater than 90; Globulin 3.8 g/dL (2.4-3.5); Glucose 115 mg/dL (83-110); Potassium 3.9 mmol/L (3.5-5.1); Protein, Total 6.9 g/dL (6.0-8.3); Sodium 135 mmol/L (136-145)
[2019-08-03] MEDS ORDERED: Nitroglycerin 0.1mg/Hour PATCH TD SCH (09:00)
[2019-08-03] MEDS ORDERED: Ergocalciferol 1.25 MG(50,000 UNITS) CAP PO SCH (09:00)
[2019-08-03 09:04] LABS: Phosphorus 1.7 mg/dL (2.3-4.7)
[2019-08-03 09:05] LABS: Vitamin D, 25 Hydroxy 4.2 ng/ml (> 30.0)
[2019-08-03] MEDS ORDERED: Potassium Phosphate 9 MMOL in Sodium Chloride 0.9% 100 ML IVPB SCH (10:00)
--- NOTE | 2019-08-03 15:02 | ULT ---
BILATERAL CAROTID DUPLEX ULTRASOUND INCLUDING COLOR AND SPECTRAL DOPPLER IMAGING: DATE: 08/03/2019 HISTORY: Stroke. Exam was somewhat limited; patient was confused and could not turn head to left for proper po sitioning. FINDINGS: Minimal intimal thickening in the proximal left ICA. PSV Right ICA: 64 cm/sec EDV: 19 cm/sec ICA/CCA Ratio: 0.9 PSV Left ICA: 94 cm/sec EDV: 18 cm/sec ICA/CCA Ratio: 1.0 Vertebral flow is antegrade. IMPRESSION: Mild intimal thickening. Evidence for carotid artery atherosclerotic vascular disease. No hemodynamically significant stenosis. POS: RRE
[2019-08-03] MEDS: Lactated Ringer's 1,000 ML IV SCH (18:34)
--- NOTE | 2019-08-03 19:07 | PDOC.HOSPP ---
- Subjective Encounter Date: 08/03/19 Encounter Time: 09:45 Subjective: pt up in bed follows some command but is unable to speak complete sentences. - Objective Vital Signs & Weight: Vital Signs (12 hours) Temp Pulse Resp BP BP Pulse Ox 08/03/19 16:00 98.9 F 100 18 131/98 H 96 08/03/19 12:50 116 H 115/60 08/03/19 11:35 98.3 F 108 H 16 181/105 H 96 08/03/19 08:47 129 H 144/70 H 08/03/19 08:33 144/70 H 08/03/19 07:30 98.2 F 111 H 24 H 190/85 H 95 Weight Admit Weight 205 lb 7.52 oz Weight 205 lb 7.52 oz I&O: 08/02/19 08/03/19 08/04/19 06:59 06:59 06:59 Intake Total 1482 1070 360 Output Total 750 1030 Balance 732 40 360 Result Diagrams: 08/03/19 08:14 08/03/19 08:14 Hospitalist ROS - Review of Systems Other: unable to obtain - Medication Medications: Active Medications Generic Name Dose Route Start Last Admin Trade Name Freq PRN Reason Stop Dose Admin Acetaminophen 650 mg 07/29/19 11:55 08/02/19 01:40 Tylenol [place] 650 mg Q4H PRN Administration Headache/Fever/Mild Pain (1-3) Aspirin 325 mg 07/31/19 09:00 08/03/19 08:34 Aspirin PO 325 mg DAILY MICHAEL Administration Atorvastatin Calcium 40 mg 07/29/19 21:00 08/02/19 20:50 Lipitor PO 40 mg HS MICHAEL Administration Carvedilol 6.25 mg 07/29/19 21:00 08/03/19 08:33 Coreg PO 6.25 mg BID MICHAEL Administration Enoxaparin Sodium 40 mg 07/30/19 09:00 08/03/19 08:35 Lovenox SC 40 mg 0900 MICHAEL Administration Ergocalciferol 1.25 mg 08/03/19 09:00 08/03/19 12:19 Drisdol PO 1.25 mg Q7DAYS MICHAEL Administration Hydralazine HCl 10 mg 07/29/19 11:55 08/01/19 16:04 Apresoline SLOW IVP 10 mg Q4H PRN Administration BP > 180/90 Labetalol HCl 20 mg 07/29/19 11:55 08/02/19 16:11 Normodyne SLOW IVP 20 mg Q1H PRN Administration BP > 180/90 Sodium Chloride 10 ml 07/29/19 11:55 07/31/19 20:18 Flush - Normal Saline IVF 10 ml PRN PRN Administration Saline Flush - Exam Neck: negative: supple, symmetric, no JVD, no thyromegaly, no lymphadenopathy, no carotid bruit, JVD Heart: negative: RRR, no murmur, no gallops, no rubs, normal peripheral pulses, irregular, diminshed peripheral pulses, murmur present, II/IV, III/IV Respiratory: negative: CTAB, no wheezes, no rales, no ronchi, normal chest expansion, no tachypnea, normal percussion, rales, rhonchi, tachypneic, wheezes Extremities: 1+ LE edema Neurological - other findings: moving all ext Hosp A/P (1) Acute metabolic encephalopathy Code(s): G93.41 - METABOLIC ENCEPHALOPATHY Status: Acute (2) HTN (hypertension) Code(s): I10 - ESSENTIAL (PRIMARY) HYPERTENSION Status: Chronic Qualifiers: Hypertension type: essential hypertension Qualified Code(s): I10 - Essential (primary) hypertension (3) Parathyroid adenoma Code(s): D35.1 - BENIGN NEOPLASM OF PARATHYROID GLAND Status: Suspected (4) HLD (hyperlipidemia) Code(s): E78.5 - HYPERLIPIDEMIA, UNSPECIFIED Status: Chronic Qualifiers: Hyperlipidemia type: unspecified Qualified Code(s): E78.5 - Hyperlipidemia , unspecified (5) Hypercalcemia Code(s): E83.52 - HYPERCALCEMIA Status: Acute (6) Low vitamin D level Code(s): R79.89 - OTHER SPECIFIED ABNORMAL FINDINGS OF BLOOD CHEMISTRY Status : Acute - Plan will replace vit d, she has a known parathyroid adenoma which is causing her hypercalcemia. She is currently on pureed diet. unable to get MRI due to aneurysm clips. will continue plavix/statin. will order carotid Doppler. she was on asa at home. will replace vit d level.
[2019-08-03] MEDS: Atorvastatin Calcium 40 MG TAB PO SCH (20:21)
[2019-08-04] MEDS: Clopidogrel Bisulfate 75 MG TAB PO SCH (09:45)
[2019-08-04] MEDS: Lisinopril 20 MG TAB PO SCH (09:45)
[2019-08-04] MEDS: Carvedilol 6.25 MG TAB PO SCH ×2 (09:46→20:37)
[2019-08-04] MEDS: Enoxaparin Sodium 40 MG/0.4 ML SYRINGE SC SCH (09:46)
--- NOTE | 2019-08-04 10:26 | PQF ---
CLINICAL DOCUMENTATION IMPROVEMENT CLARIFICATION FORM: ICD-10 Updated PLEASE DO AN ADDENDUM TO THE PROGRESS NOTE WITH ANY DOCUMENTATION UPDATES OR ADDITIONS AND CARRY THROUGH TO DC SUMMARY. THANK YOU. DATE: 08/04/19 ATTN: DR. MARIO Please exercise your independent, professional judgment in responding to the clarification form. Clinical indicators are provided on the bottom of this form for your review Please check appropriate box(s) to clarify if the following diagnosis has been ruled in or ruled out: CVA [ ] Ruled in diagnosis [ x ] Continue to treat [ ] Resolved [ ] Ruled out diagnosis [ ] Improving [ ] Cannot rule out diagnosis [ ] Other diagnosis [ ] Unable to determine In addition, please specify: Present on Admission (POA): [ x] Yes [ ] No [ ] Unable to determine For continuity of documentation, please document condition throughout progress notes and discharge summary. Thank You. CLINICAL INDICATORS - SIGNS / SYMPTOMS / LABS / RESULTS AND LOCATION IN MR PN 08/01: "I STRONGLY SUSPECT CVA" CONSULT NOTE 07/29: "I DO NOT THINK THIS IS A PRIMARY NEUROLOGICAL ISSUE SUCH SEIZURE OR STROKE OR ENCEPHALITIS BASED ON HER CURRENT WORKUP." RISKS: HYPONATREMIA (CONSULT 07/29) METABOLIC ACIDOSIS (CONSULT 07/29) ADVANCED AGE TREATMENT: NEURO CONSULT 07/[address] 07/29 CAROTID DOPPLER 08/02 [employer] Winform Viewer(This form is maintained as a part of the permanent medical record) 2014 [employer]. All Rights Reserved [email or web address]
--- NOTE | 2019-08-04 13:24 | PDOC.PALCO ---
Palliative Care Consult - Consult Details Requesting Physician: Dr Negron Reason for Consult: goals of care, advance directives assistance, family support - Pertinent HPI 78 year old female who resides at a private home with her son as primary caregiver. Prior to admission she required minimal assistance with ADL. Ambulatory. 07/28 she was transported to the emergency room for evaluation of altered mental status and confusion. No family present at time of admission. No triggering events to lead to the change in mental status. Admitted for further evaluation and management for suspected right sided CVA, dehydration, hyponatremia, metabolic acidosis, hypercalcemia, and acute metabolid encephalopathy. - Pertinent PMH CAD, HTN, CABG, Obesity - Social History Smoking Status: Never smoker Smoking: no tobacco exposure Alcohol Use: none Drug Use History: none Living Situation: other (Lives with family) - Medications MAR Reviewed: Yes - Allergies Allergies/Adverse Reactions: Allergies Allergy/AdvReac Type Severity Reaction Status Date / Time No Known Drug Allergies Allergy Verified 07/29/19 17:16 - Subjective Awake, able to speak in slow sentences with few words. Mild confusion, thus difficult to fully engage for a ROS - ROS Non Response: due to mental status Constitutional: alert, weakness - Objective Vital Signs: Vital Signs - Most Recent Temp Pulse Resp BP Pulse Ox 98.5 F 104 H 24 H 139/93 H 94 L 08/04/19 11:23 08/04/19 11:23 08/04/19 11:23 08/04/19 11:23 08/04/19 11:23 Palliative Performance Scale: 30 - Physical Exam Constitutional: NAD, confusion HEENT: EOMI, moist MMs, sclera anicteric Respiratory: no wheezing, unlabored breathing Cardiovascular: RRR Deviation from normal: murmur Gastrointestinal: soft, non-tender, incontinent Genitourinary: incontinent Musculoskeletal: no cyanosis, no clubbing, edema present Neurology: moves all 4 limbs Skin: cap refill <2 seconds Deviation from normal: Cheerful - Problem List (1) Palliative care encounter Code(s): Z51.5 - ENCOUNTER FOR PALLIATIVE CARE Current Visit: Yes Status: Acute (2) Acute metabolic encephalopathy Code(s): G93.41 - METABOLIC ENCEPHALOPATHY Current Visit: Yes Status: Acute (3) Acute CVA (cerebrovascular accident) Code(s): I63.9 - CEREBRAL INFARCTION, UNSPECIFIED Current Visit: Yes Status : Suspected - Plan/Recommendations Plan:Visited with both patient son Jordi and as per his request called and spoke with Karly Alex the patient daughter in law, who also works at [employer]. With both discussed goal of care as well as recent history of patient and functionality. Goal of Care is to rehab to optimal functional level, preferably in home setting. Continue with aggressive measures for sustaining life. Communicated with Jing KENDRICK Palliative Care will sign off as Goal of Care is identified, family support offered. If we can be of assistance in the future please reconsult our Team. [60] minutes spent on this encounter with >50% of the time in counseling and coordination of care. Thank you for this very appropriate consult.
[2019-08-04] MEDS: Atorvastatin Calcium 40 MG TAB PO SCH (20:37)
--- NOTE | 2019-08-05 00:07 | DIS ---
DATE OF ADMISSION: 07/29/2019 DATE OF DISCHARGE: 08/04/2019 DISCHARGE DIAGNOSES: 1. Acute metabolic encephalopathy, possible cerebrovascular accident. 2. Hypercalcemia. 3. Hyponatremia. 4. Hypertension. 5. Parathyroid adenoma. 6. Low vitamin D level. HOSPITAL COURSE: The patient is a very pleasant 78-year-old female, who initially presented to the hospital with change in mental status. She initially was treated for possible acute CVA, however, unable to do an MRI due to her aneurysm clips. She was seen by Neurology, who recommended an echo and carotid Dopplers. Her echo indicated an LV function of 55% to 60%, a moderately thickened aortic valve. Carotid Dopplers indicated some minimal intimal thickening in the proximal left ICA. The patient has a history of parathyroid adenoma. She did have an elevated parathyroid hormone. The patient's mentation improved. She was able to ambulate with Physical Therapy with a walker. She is able to feed herself. She is currently on a pureed diet. I did update the family. Family initially requested the patient to be discharged on 08/04. They stated that they would feel much better if we make sure that she had no other issues overnight. The patient's blood pressure medications were titrated up. She was on torsemide which I have discontinued. She will follow up with her Primary Care and also will do Home Health and Physical Therapy. HOME MEDICATIONS: 1. She was on aspirin, I have discontinued that. 2. Plavix 75 mg daily. 3. Coreg 12.5 twice a day. 4. Ergocalciferol 1.25 every 7 days. 5. Moexipril 15 mg twice a day, she was initially on daily. 6. Rosuvastatin 20 mg daily. PHYSICAL EXAMINATION: VITAL SIGNS: Temperature 97.7, pulse 99, respirations 16, saturations 96% on room air, blood pressure 142/64. GENERAL: She is awake, alert, and oriented x3. She does not appear in any distress. CV: S1, S2 present. No murmurs or gallops. ABDOMEN: Soft and nontender. Bowel sounds are present x2. EXTREMITIES: Mild edema. NEUROVASCULAR: She is moving all 4 extremities. Job ID: [id number]
--- NOTE | 2019-08-05 03:23 | DIS ---
DATE OF ADMISSION: 07/29/2019 DATE OF DISCHARGE: 08/04/2019 DISCHARGE DIAGNOSES: As of the following; 1. Acute metabolic encephalopathy. 2. Most likely stroke. 3. Hyponatremia, resolved. 4. Hypercalcemia, resolved. 5. Parathyroid adenoma. 6. Low vitamin D level. 7. Hypokalemia, also resolved. HOSPITAL COURSE: The patient is a 78-year-old female, who initially presented to the hospital with change in mental status. Per notes, it was noted that she was moving all extremities, however, was very confused. She ruled out. Her COVID was negative. She underwent a CT brain, which did not indicate any acute abnormalities. However, I did indicate that she did have a prior history of aneurysm clipping. She was unable to have an MRI done. Given the fact that the aneurysm clipping would be not compatible with MRI per Radiology, she was seen by Neurology. Echo and carotid Dopplers were ordered. The echo indicated an EF of 55% to 60% with mild concentric left ventricular hypertrophy and diastolic function could not be assessed with moderate thickening of the aortic valve and mild tricuspid regurgitation. She did have carotid Dopplers done, which indicated some minimal intimal thickening to the proximal left ICA. She throughout the hospital stay improved significantly. She was able to ambulate and was able to feed herself. Her sodium improved dramatically. She did have hypercalcemia. She does have a parathyroid adenoma, and her PTH level high was 2.78. Also, her vitamin D level was 4.2, which was replaced. Her procalcitonin was normal. Her TSH was 0.2, was low, but her free T4 was 1. I did speak with the patient's family about the patient's overall progression. They wanted the patient to be taken home if possible. Physical Therapy did work with the patient. She did well with a walker, and she will be discharged to home. MEDICATIONS: From home will be; 1. Carvedilol 12.5 twice a day. 2. Clopidogrel 75 mg daily. 3. Moexipril 15 mg increased to twice a day. 4. Ergocalciferol 1.25 every 7 days. 5. Rosuvastatin 20 mg daily. 6. . 7. I will also add potassium 20 mEq daily. I have recommended to take the torsemide only as needed. PHYSICAL EXAMINATION: VITAL SIGNS: On discharge, temperature of 98.1, pulse 93, respirations of 18, oxygen saturation is 96%, and blood pressure 139/93. GENERAL: She is awake, alert, and oriented x3. Does not appear in distress. CV: S1, S2 present. No murmurs, rubs, or gallops. ABDOMEN: Soft and nontender. Bowel sounds are present x2. EXTREMITIES: She is moving all extremities. She follows commands. Again, she will be discharged to home. She will follow up with her primary. I have asked them to use the torsemide only as needed. Because when she came in, there was some concern for possible dehydration. Her initial presentation could be a combination of hypercalcemia and hyponatremia. It could be metabolic related. However, an MRI would have been appropriate study to rule out CVA completely, which was not feasible given her aneurysm clipping. However, she completely is back to her baseline, which makes me think more it is metabolic rather than a stroke. However, since I do not have the MRI, I will treat her as possible stroke. In this case, I will change her aspirin to clopidogrel for assuming that she had a stroke and she failed therapy on aspirin. Job ID: [id number]
[2019-08-05 08:12] VITALS: BP 148/84; TEMP 97.5
[2019-08-05] MEDS: Enoxaparin Sodium 40 MG/0.4 ML SYRINGE SC SCH (08:56)
[2019-08-05] MEDS: Clopidogrel Bisulfate 75 MG TAB PO SCH (08:56)
[2019-08-05] MEDS: Carvedilol 6.25 MG TAB PO SCH (08:56)
[2019-08-05] MEDS: Lisinopril 20 MG TAB PO SCH (08:56)
[2019-08-08] MEDS ORDERED: cloNIDine 0.2mg/24 Hour PATCH TD SCH (09:00)
== END 2019-08-05 11:04 | disposition home health service (06) | DRG 64 ==
LOC: ERS 09:14 → 2SW 11:55 → OBSVTOIN 11:55
PROVIDERS: ADMIT Internal Medicine; ATTEND Internal Medicine
PROC: 8E0ZXY6 Isolation (ICD-10-PCS; principal; 2019-07-29)
DX: I63.9 Cerebral infarction, unspecified (principal); G93.41 Metabolic encephalopathy; R40.2342 Coma scale, best motor response, flexion withdrawal, at arrival to emergency department; E87.1 Hypo-osmolality and hyponatremia; E87.2 Acidosis; Z20.828 Contact with and (suspected) exposure to other viral communicable diseases; E83.52 Hypercalcemia; I10 Essential (primary) hypertension; D35.1 Benign neoplasm of parathyroid gland; E86.0 Dehydration; E87.5 Hyperkalemia; E78.5 Hyperlipidemia, unspecified; I25.10 Atherosclerotic heart disease of native coronary artery without angina pectoris; E66.9 Obesity, unspecified; I45.10 Unspecified right bundle-branch block; R79.89 Other specified abnormal findings of blood chemistry; I08.3 Combined rheumatic disorders of mitral, aortic and tricuspid valves; R29.720 NIHSS score 20; R40.2132 Coma scale, eyes open, to sound, at arrival to emergency department; R40.2242 Coma scale, best verbal response, confused conversation, at arrival to emergency department; E87.6 Hypokalemia; Z78.1 Physical restraint status; Z79.899 Other long term (current) drug therapy; Z79.82 Long term (current) use of aspirin; Z95.1 Presence of aortocoronary bypass graft; Z68.37 Body mass index [BMI] 37.0-37.9, adult; Z86.010 Personal history of colon polyps; Z95.828 Presence of other vascular implants and grafts
CPT/HCPCS: 36415; 51701; 70450; 71045; 80048; 80053; 80061; 80306; 81003; 81015; 82306; 83605; 83735; 83930; 83970; 84100; 84145; 84439; 84443; 84484; 85025; 86038; 86225; 86780; 87040; 87086; 87635; 87804; 93005; 93010; 93306; 93880; 96365; 96366; 96375; A4353; J0360; J0696; J1650; J1956; J3480; J3490; J7050; U0002

== ENCOUNTER 2020-01-01 09:34 | Outpatient (CLI) | payer MEDICARE ==
--- NOTE | 2020-01-01 10:33 | CT ---
CT HEAD WITHOUT IV CONTRAST COMPARISON: 10/28/2019 HISTORY: Follow-up intracranial hemorrhage. TECHNIQUE: Axial CT imaging at 5 mm intervals from vertex through skull base without contrast FINDINGS: There is decreased attenuation in the periventricular white matter which is nonspecific but likely re flective of chronic small vessel ischemic changes. Stable area of encephalomalacia in the anterior right temporal lobe and inferior right frontal lobe are again seen related to prior insult. The coil mass centered in the midline supraclinoid region is again seen. Encephalomalacia in the high right frontal parietal region is again seen. There is been expected evolutionary changes in blood products involving the areas of subarachnoid hem orrhage as well as subdural hemorrhage. The extra-axial collections in the bifrontal regions have also significantly decreased in size with only minimal extra-axial collections of persisting. There is mild cerebral volume loss. The ventricular system is normal in size, shape, and position for the degree of sulcal atrophy. There is no evidence of an acute infarction, hemorrhage, mass effect, or midline shift. Remote lacuna r infarctions in each basal ganglia are again seen with remote infarction left cerebellar hemisphere again seen. Persistent complete opacification right maxillary antrum with increased density material in the right maxillary antrum which may represent inspissated secretions or fungal infection. Mucosal thickening is present in the right sphenoid sinus with thickening of the edward of the sphenoid sinus completely related to chronic sinusitis. Complete opacification right frontal sinus is now present as well. Right frontotemporal craniotomy defect is again present. IMPRESSION: 1. No acute intracranial abnormality demonstrated. 2. Chronic small vessel ischemic changes and cerebral volume loss. 3. Interval resolution of subarachnoid and subdural hemorrhage with expected evolutionary changes in blood products. In addition, there has been interval considerable decrease in the extra-axial collections seen on the prior study with only very minimal collections now persisting some of which c ould be a factor of the degree of volume loss. 4. Stable area of encephalomalacia in the high right frontal parietal region and in the right inferio r frontal temporal region. 5. Sinus disease including complete opacification the right sphenoid sinus and right frontal sinus wi th increased density material suggesting inspissated secretions or fungal infection.
== END 2020-01-01 09:35 | disposition home or self-care (01) ==
LOC: CT 09:34
PROVIDERS: ATTEND Surgery
DX: I61.9 Nontraumatic intracerebral hemorrhage, unspecified (principal); G93.89 Other specified disorders of brain; J34.89 Other specified disorders of nose and nasal sinuses; R93.89 Abnormal findings on diagnostic imaging of other specified body structures
CPT/HCPCS: 70450

== ENCOUNTER 2020-04-07 22:26 | Emergency (ER) | payer MEDICARE, MEDICAID ==
[2020-04-07] MEDS ORDERED: Lidocaine 4% Cream 5 GM TUBE w/ Tegaderm ONE (22:41)
--- NOTE | 2020-04-07 23:28 | RAD ---
RADIOGRAPH CHEST 1 VIEW: Supine DATE: 04/07/2020 11:50 PM HISTORY: 79-year-old female status post acute chest trauma from fall FINDINGS: There is no airspace density or pulmonary edema. The lateral costophrenic angles are sharp. Supine po sitioning makes this study insensitive for the detection of pneumothorax. Nonacute left humeral head fracture deformity. Sternotomy wires. No cardiomegaly. Prominent interstitial markings. IMPRESSION: No acute pulmonary findings.
--- NOTE | 2020-04-07 23:30 | RAD ---
Radiograph pelvis one view: 04/07/2020 11:16 PM HISTORY: 79-year-old female with acute, traumatic pelvic pain from fracture. FINDINGS: The diffuse osteopenia, degenerative changes of the right hip, and bowel gas and stool overlying the sacrum and pubis, could obscure a mildly displaced acute fracture. No evidence of disruption of pelvic rings. No grossly displaced fracture identified. IMPRESSION: 1.) Diffuse osteopenia. 2) moderate osteoarthrosis of right hip. 3) no grossly displaced acute fracture identified, although the sensitivity is low.
--- NOTE | 2020-04-07 23:40 | CT ---
CT CERVICAL SPINE NONCONTRAST: DATE: 04/07/2020 HISTORY: cervical trauma: 79-year-old female status post fall. FINDINGS: There are no jumped or perched facets. There is no evidence of acute fracture. The vertebral body hei ghts are maintained. There is no prevertebral soft tissue swelling. Diffuse osteoporosis. IMPRESSION: No evidence of acute fracture or acute traumatic subluxation.
--- NOTE | 2020-04-07 23:50 | CT ---
CT BRAIN NONCONTRAST: DATE: 04/07/2020 11:29 PM HISTORY: 79-year-old female status post acute head trauma from fall COMPARISON: 01/01/2020 FINDINGS: There is a new finding of high density superficial soft tissue swelling of the fore head, centered to the right of midline. There has been no other interval change. Old right pterional craniotomy changes. 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 Mild to moderate ventriculomegaly of lateral and third ventricles, probably due to diffuse brain atro phy. Tiny old lacunar infarctions in bilateral thalami, basal ganglia, caudate nuclei, and left upper jonathan . Small to moderate-sized region of encephalomalacia and gliosis in the anterior right temporal lobe. There is no evidence of acute intra-axial or extra-axial hemorrhage. There is no midline shift or any other mass effect. There is no extra-axial fluid collection. There is no evidence of obstructive hydrocephalus. Calvarium is intact. There is diffuse brain parenchymal volume loss. There are low att enuation areas in the white matter. These are nonspecific, but in a patient of this age, they are probably chronic ischemic white matter changes due to microvascular atherosclerosis. Again noted is the dense opacification of right maxillary sinus with soft tissue density material ext ending through right maxillary ostium, contiguous with partial opacification of right anterior ethmoid air cells and total opacification of right frontal sinus. High density material in the right maxillary antrum may represent inspissated mucus or fungal colonization, similar to previous CT. Total opacification of right sphenoid air cell. Osseous mural thickening of the edward of the right maxillary sinus and right sphenoid air cell, indic ates long-standing, chronic process. IMPRESSION: 1) No acute intracranial findings. 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 3) acute, traumatic frontal scalp contusion. 4) right maxillary, right sphenoid, and right frontal chronic occlusive sinusitis. 5) multiple tiny old lacunar infarctions in bilateral corpus striatum and thalami, and left brainstem .. 6) involutional changes and chronic ischemic white matter changes.
[2020-04-08] MEDS ORDERED: Lidocaine 1% w/Epinephrine 1:100K 20 ML VIAL ONE (00:28)
== END 2020-04-08 01:57 ==
LOC: ERS 22:26
DX: S01.81XA Laceration without foreign body of other part of head, initial encounter (principal); I25.10 Atherosclerotic heart disease of native coronary artery without angina pectoris; E78.5 Hyperlipidemia, unspecified; I10 Essential (primary) hypertension; Z86.19 Personal history of other infectious and parasitic diseases; Z86.018 Personal history of other benign neoplasm; Z79.899 Other long term (current) drug therapy; Z86.73 Personal history of transient ischemic attack (TIA), and cerebral infarction without residual deficits; W06.XXXA Fall from bed, initial encounter
CPT/HCPCS: 70450; 71045; 72125; 72170

== ENCOUNTER 2020-04-08 19:55 | Inpatient (IN) | payer MEDICARE, MEDICAID ==
[2020-04-08 20:39] LABS: #Basophils 0.1 thou/uL (0.0-0.2); #Eosinphils 0.1 thou/uL (0.0-0.7); #Lymphocytes 1.4 thou/uL (1.20-3.40); #Monocytes 0.6 thou/uL (0.11-0.59); #Neutrophils 8.4 thou/uL (1.40-6.50); %Basophils 0.6 % (0.0-1.0); %Eosinophils 0.6 % (0.0-10.0); %Lymphocytes 13.1 % (21.0-51.0); %Monocytes 6.1 % (0.0-10.0); %Neutrophils 79.6 % (42.0-75.0); Hemoglobin 12.1 g/dL (12.0-16.0); Mean Corpuscular HGB CONC 31.8 g/dL (32.0-36.0); Mean Corpuscular Hemoglobin 25.8 pg (27.0-31.0); Mean Corpuscular Volume 81.1 fL (78.0-98.0); Mean Platelet Volume 9.4 fL (7.4-10.4); Platelet Count 172 thou/uL (130-400); RBC Distribution Width 15.9 % (11.5-14.5); Red Blood Cell (RBC) Count 4.68 mill/uL (4.20-5.40); White Blood Cell (WBC) Count 10.5 thou/uL (4.8-10.8)
[2020-04-08] MEDS ORDERED: Cefepime 2 GM VIAL ONE (20:54)
[2020-04-08 20:59] LABS: Bilirubin Negative (Negative); Blood, Urine 2+ (Negative); Clarity Turbid (Clear); Glucose, Urine (Dipstick) Normal (Negative); Ketone, Urine Negative (Negative); Leukocyte 250 Leu/uL (Negative); Mucous/LPF Rare LPF (<2+); Nitrite Negative (Negative); Protein, Urine (Dipstick) 20 mg/dL (Neg-Trace); RBC/HPF 21-50 HPF (0-3); Specific Gravity, Urine 1.021 (1.002-1.036); Squamous Epithelial 0-3 HPF (0-3); Yeast-Budding 1+ HPF (None Seen); Yeast-Hyphae Rare HPF (None Seen); pH, Urine 5.5 (5.0-9.0)
[2020-04-08] MEDS ORDERED: Vancomycin 1.5 GRAM/300 ML BAG 1.5 GM in Premix Bag 1 BAG IVPB SCH (21:00)
[2020-04-08 21:03] LABS: ALT (SGPT) 16 U/L (8-55); AST (SGOT) 19 U/L (5-34); Albumin 3.4 g/dL (3.4-4.8); Alkaline Phosphatase 132 U/L (40-110); Anion Gap 12 mmol/L (10-20); BUN (Urea Nitrogen) 20 mg/dL (9.8-20.1); Bilirubin, Total 0.4 mg/dL (0.2-1.2); Calc. Creatinine Clearance 0 mL/min (70-130); Carbon Dioxide 27 mmol/L (23-31); Chloride 108 mmol/L (98-107); Globulin 4.5 g/dL (2.4-3.5); Glucose 169 mg/dL (83-110); Lipase 9 U/L (8-78); Potassium 3.3 mmol/L (3.5-5.1); Protein, Total 7.9 g/dL (6.0-8.3); Sodium 144 mmol/L (136-145)
[2020-04-08 21:08] LABS: Bacteria/HPF Rare-Few HPF (None Seen)
[2020-04-08 21:17] LABS: Calcium 12.2 mg/dL (7.8-10.44)
--- NOTE | 2020-04-08 21:29 | RAD ---
PORTABLE CHEST: Date: 04-08-2020 PROVIDED CLINICAL HISTORY: Sepsis FINDINGS: Comparison 04-07-2020. Cardiac and mediastinal silhouette is unchanged in appearance. Median sternotomy changes are redemons trated. No focal consolidation, pleural fluid or pneumothorax apparent. IMPRESSION: No evidence for an acute cardiopulmonary process. POS: JUAN A
[2020-04-08 23:32] LABS: Lactic Acid 1.3 mmol/L (0.5-2.2)
[2020-04-08] MEDS ORDERED: Acetaminophen 325 MG TAB PO PRN (23:34)
[2020-04-08] MEDS ORDERED: Calcium Carbonate 500 MG ChewTAB PO PRN (23:34)
[2020-04-08] MEDS ORDERED: Acetaminophen 650 MG Suppository PR PRN (23:34)
--- NOTE | 2020-04-08 23:39 | PDOC.HHP ---
Hospitalist HPI - History of Present Illness altered mental state History of Present Illness: history is limited patient has dementia, no family members where present at the moment of my evaluation Case of an 79y/o female with a pmhx of hx of ICH, cad, hld, htn, parathyroid adenoma and hx of cva who comes to hospital due to altered mental state. Patient was on her usual state of health until today when [facility] due to changes in mental status. Patient has severe dementia and is normally only alert, aware, oriented x1, and the jail states that she has been aware x0 today. She was seen in the emergency department yesterday after a fall had an fully negative work-up. No reports of fever noted Hospitalist ROS - Review of Systems ROS unobtainable: due to mental status Hospitalist History - Past Surgical History Past Surgical History: reports: CABG - Family History Other Family History: unable to asses due to mental status - Social History Other Social History: unable to asses due to mental status - Exam General Appearance: NAD, awake alert Eye: PERRL, anicteric sclera ENT: normocephalic atraumatic, no oropharyngeal lesions Neck: supple, symmetric, no JVD Heart: RRR, no murmur, no gallops Respiratory: CTAB, no wheezes, no rales Gastrointestinal: soft, non-tender, non-distended Extremities: no cyanosis, no clubbing, no edema Skin: normal turgor, no lesions, no rashes Neurological: cranial nerve grossly intact, normal sensation to touch Musculoskeletal: normal tone, normal strength, no muscle wasting Psychiatric: normal affect, not oriented Hospitalist Results - Labs Result Diagrams: 04/08/20 20:20 04/08/20 20:20 Lab results: WBC 10.5 thou/uL (4.8-10.8) 04/08/20 20:20 Hgb 12.1 g/dL (12.0-16.0) 04/08/20 20:20 Hct 38.0 % (36.0-47.0) 04/08/20 20:20 MCV 81.1 fL (78.0-98.0) 04/08/20 20:20 Plt Count 172 thou/uL (130-400) 04/08/20 20:20 Neutrophils % 79.6 % (42.0-75.0) H 04/08/20 20:20 Sodium 144 mmol/L (136-145) 04/08/20 20:20 Potassium 3.3 mmol/L (3.5-5.1) L 04/08/20 20:20 Chloride 108 mmol/L (98-107) H 04/08/20 20:20 Carbon Dioxide 27 mmol/L (23-31) 04/08/20 20:20 BUN 20 mg/dL (9.8-20.1) 04/08/20 20:20 Creatinine 0.82 mg/dL (0.6-1.1) 04/08/20 20:20 Glucose 169 mg/dL (83-110) H 04/08/20 20:20 Lactic Acid 1.3 mmol/L (0.5-2.2) 04/08/20 23:07 Calcium 12.2 mg/dL (7.8-10.44) H* 04/08/20 20:20 Total Bilirubin 0.4 mg/dL (0.2-1.2) 04/08/20 20:20 AST 19 U/L (5-34) 04/08/20 20:20 ALT 16 U/L (8-55) 04/08/20 20:20 Alkaline Phosphatase 132 U/L (40-110) H 04/08/20 20:20 Troponin I Less than 0.010 ng/mL (< 0.028) 04/08/20 20:20 Serum Total Protein 7.9 g/dL (6.0-8.3) 04/08/20 20:20 Albumin 3.4 g/dL (3.4-4.8) 04/08/20 20:20 Lipase 9 U/L (8-78) 04/08/20 20:20 Urine Ketones Negative mg/dL (Negative) 04/08/20 20:35 Urine Blood 2+ (Negative) A 04/08/20 20:35 Urine Nitrite Negative (Negative) 04/08/20 20:35 Ur Leukocyte Esterase 250 Valdemar/uL (Negative) A 04/08/20 20:35 Urine RBC 21-50 HPF (0-3) A 04/08/20 20:35 Urine WBC 11-20 HPF (0-3) A 04/08/20 20:35 Ur Squamous Epith Cells 0-3 HPF (0-3) 04/08/20 20:35 Urine Bacteria Rare-Few HPF (None Seen) 04/08/20 20:35 Hospitalist H&P A/P - Problem (1) Sepsis Code(s): A41.9 - SEPSIS, UNSPECIFIED ORGANISM Status: Acute (2) UTI (urinary tract infection) Status: Acute (3) CAD (coronary artery disease) Code(s): I25.10 - ATHSCL HEART DISEASE OF [place] CORONARY ARTERY W/O ANG PCTRS Status: Chronic Qualifiers: Coronary Disease-Associated Artery/Lesion type: bypass graft [place] vs. transplanted heart: [place] heart (4) HLD (hyperlipidemia) Code(s): E78.5 - HYPERLIPIDEMIA, UNSPECIFIED Status: Chronic Qualifiers: Hyperlipidemia type: unspecified Qualified Code(s): E78.5 - Hyperlipidemia, unspecified (5) HTN (hypertension) Code(s): I10 - ESSENTIAL (PRIMARY) HYPERTENSION Status: Chronic Qualifiers: Hypertension type: essential hypertension Qualified Code(s): I10 - Essential (primary) hypertension (6) Parathyroid adenoma Code(s): D35.1 - BENIGN NEOPLASM OF PARATHYROID GLAND Status: Suspected - Plan Plan: 79y/o female with the stated pmhx who present with sepsis secondary to uti sepsis due to uti - elevated LA + tachycardia with a u/a consistent with uti - will start rocephin - f/u blood and urine cultures - f/u LA htn - holding medication for now in the setting of sepsis continue rest of home meds
[2020-04-08] MEDS ORDERED: Sodium Chloride 0.9% 1,000 ML IV SCH (23:45)
[2020-04-09 04:17] LABS: SARS-CoV-2 MS2 Positive; SARS-CoV-2 N Gene Positive; SARS-CoV-2 S Gene Positive; SARS-CoV-2 by NAA DETECTED (NotDetected); SARS-CoV-2 orf1ab Positive
[2020-04-09 06:27] LABS: Band 2 % (5-11); Eosinophils 1 % (0-10); Hypochromia SLIGHT = 6-15 cells (100X) (0-5/hpf); Lymphocytes 20 % (21-51); MDiff Complete? YES; Mean Corpuscular HGB CONC 32.8 g/dL (32.0-36.0); Mean Corpuscular Hemoglobin 26.7 pg (27.0-31.0); Mean Corpuscular Volume 81.5 fL (78.0-98.0); Mean Platelet Volume 9.3 fL (7.4-10.4); Monocytes 6 % (0-10); Neutrophil 71 % (42-75); Platelet Count 152 thou/uL (130-400); Platelet Morphology Comment Appears Adequate; RBC Distribution Width 15.6 % (11.5-14.5); Red Blood Cell (RBC) Count 4.13 mill/uL (4.20-5.40); White Blood Cell (WBC) Count 10.2 thou/uL (4.8-10.8)
[2020-04-09 06:36] LABS: ALT (SGPT) 14 U/L (8-55); AST (SGOT) 17 U/L (5-34); Albumin 3.5 g/dL (3.4-4.8); Alkaline Phosphatase 130 U/L (40-110); Anion Gap 12 mmol/L (10-20); BUN (Urea Nitrogen) 18 mg/dL (9.8-20.1); Bilirubin, Total 0.4 mg/dL (0.2-1.2); Calc. Creatinine Clearance 0 mL/min (70-130); Calcium 11.6 mg/dL (7.8-10.44); Carbon Dioxide 27 mmol/L (23-31); Chloride 112 mmol/L (98-107); Globulin 4.1 g/dL (2.4-3.5); Glucose 105 mg/dL (83-110); Potassium 3.5 mmol/L (3.5-5.1); Protein, Total 7.6 g/dL (6.0-8.3); Sodium 147 mmol/L (136-145)
[2020-04-09] MEDS ORDERED: Enoxaparin Sodium 40 MG/0.4 ML SYRINGE ONE (09:58)
[2020-04-09] MEDS ORDERED: levETIRAcetam 500 MG/100 ML PREMIX BAG ONE (09:58)
[2020-04-09] MEDS ORDERED: cefTRIAXone\\ROCEPHIN 2 GM VIAL ONE (09:58)
[2020-04-09] MEDS: cefTRIAXone\\ROCEPHIN 2 GM in Sodium Chloride 0.9% 100 ML IVPB SCH (10:22)
[2020-04-09] MEDS: Enoxaparin Sodium 40 MG/0.4 ML SYRINGE SC SCH (10:23)
[2020-04-09] MEDS: levETIRAcetam 500 mg/5 ml Oral Solution PO SCH ×2 (10:45→19:44)
[2020-04-09] MEDS ORDERED: Carvedilol 6.25 MG TAB PER TUBE SCH ×2 (10:51→11:00)
[2020-04-09] MEDS: Carvedilol 6.25 MG TAB PER TUBE SCH (18:07)
--- NOTE | 2020-04-09 19:16 | PDOC.HOSPP ---
- Subjective Encounter Date: 04/09/20 Encounter Time: 12:30 Subjective: patient seen and examined, AOx0, nonsensical, no distress, no chest pain/sob - Objective Vital Signs & Weight: Vital Signs (12 hours) BP 04/09/20 18:07 154/107 H 04/09/20 13:49 148/90 H Result Diagrams: 04/09/20 05:56 04/09/20 05:56 Radiology Reviewed by me: Yes Hospitalist ROS - Review of Systems ROS unobtainable: due to mental status - Medication Medications: Active Medications Generic Name Dose Route Start Last Admin Trade Name Freq PRN Reason Stop Dose Admin Carvedilol 12.5 mg 04/09/20 17:00 04/09/20 18:07 Carvedilol 6.25 Mg Tab PER TUBE 12.5 mg BID-WM MICHAEL Administration Enoxaparin Sodium 40 mg 04/09/20 09:00 04/09/20 10:23 Enoxaparin Sodium 40 Mg/0.4 Ml Syringe SC 40 mg 0900 MICHAEL Administration Sodium Chloride 1,000 mls @ 50 mls/hr 04/08/20 23:45 04/09/20 00:17 Normal Saline 0.9% IV 1,000 mls .Q20H MICHAEL Administration Ceftriaxone Sodium 2 gm/ 100 mls @ 200 mls/hr 04/09/20 09:00 04/09/20 10:22 Sodium Chloride IVPB 100 mls Q24HR MICHAEL Administration Levetiracetam 500 mg 04/09/20 09:00 04/09/20 10:45 Levetiracetam 500 Mg/5 Ml Oral Solution PO 500 mg BID MICHAEL Administration Sodium Chloride 10 ml 04/09/20 09:00 04/09/20 10:25 Flush - Normal Saline 10 Ml Syringe IVF 10 ml Q12HR MICHAEL Administration - Exam General Appearance: NAD, awake alert General - other findings: not oriented, confused Eye: PERRL, anicteric sclera ENT: normocephalic atraumatic, no oropharyngeal lesions, moist mucosa Neck: supple, symmetric, no JVD, no thyromegaly, no lymphadenopathy, no carotid bruit Heart: RRR, no murmur, no gallops, no rubs, normal peripheral pulses Respiratory: CTAB, no wheezes, no rales, no ronchi, normal chest expansion, no tachypnea, normal percussion Gastrointestinal: soft, non-tender, non-distended, normal bowel sounds, no palpable masses, no hepatomegaly, no splenomegaly, no bruit Extremities: no cyanosis, no clubbing, no edema Skin: normal turgor, no lesions, no rashes Neurological: cranial nerve grossly intact, normal sensation to touch, no weakness, no focal deficits, no new deficit Neurological - other findings: not oriented, confused Musculoskeletal: normal tone, normal strength, no muscle wasting Psychiatric: normal behavior Psychiatric - other findings: not oriented, confused Hosp A/P (1) Sepsis Code(s): A41.9 - SEPSIS, UNSPECIFIED ORGANISM Status: Acute (2) UTI (urinary tract infection) Status: Acute (3) Acute metabolic encephalopathy Code(s): G93.41 - METABOLIC ENCEPHALOPATHY Status: Acute (4) CAD (coronary artery disease) Code(s): I25.10 - ATHSCL HEART DISEASE OF [place] CORONARY ARTERY W/O ANG PCTRS Status: Chronic Qualifiers: Coronary Disease-Associated Artery/Lesion type: bypass graft [place] vs. transplanted heart: [place] heart (5) HLD (hyperlipidemia) Code(s): E78.5 - HYPERLIPIDEMIA, UNSPECIFIED Status: Chronic Qualifiers: Hyperlipidemia type: unspecified Qualified Code(s): E78.5 - Hyperlipidemia, unspecified (6) HTN (hypertension) Code(s): I10 - ESSENTIAL (PRIMARY) HYPERTENSION Status: Chronic Qualifiers: Hypertension type: essential hypertension Qualified Code(s): I10 - Essential (primary) hypertension - Plan 79y/o female with the stated pmhx who present with sepsis secondary to uti sepsis due to uti - elevated LA + tachycardia with a u/a consistent with uti - continue rocephin - f/u blood and urine cultures - f/u LA -> 2.4, then 1.3, monitor closely clinical condition htn - holding medication for now in the setting of sepsis # hypercalcemia - improving with IVF, perhaps hemoconcentration or related to parathyroid adenoma # covid 19 infection - covid positive, but symptoms not consistent with covid 19 pneumonia, suspect red centeno/not actual cause of symptoms, observe isolation precautions and monitor # hypokalemia - improved continue rest of home meds
[2020-04-09] MEDS: Sodium Chloride 0.9% 1,000 ML IV SCH (19:43)
[2020-04-09] MEDS: Rosuvastatin 20 MG TAB PER TUBE SCH (19:44)
[2020-04-09] MEDS: cloNIDine 0.3mg/24 Hour PATCH TD SCH (19:44)
[2020-04-10 01:01] VITALS: BMI 29.6
[2020-04-10] MEDS ORDERED: FLU VACC QS2020-21(65YR UP)/PF 240 MCG/0.7 ML SYRINGE IM ONE (09:00)
[2020-04-10] MEDS: Carvedilol 6.25 MG TAB PER TUBE SCH ×2 (10:12→17:44)
[2020-04-10] MEDS: Enoxaparin Sodium 40 MG/0.4 ML SYRINGE SC SCH (10:12)
[2020-04-10] MEDS: levETIRAcetam 500 mg/5 ml Oral Solution PO SCH ×2 (10:12→23:06)
[2020-04-10] MEDS: cefTRIAXone\\ROCEPHIN 2 GM in Sodium Chloride 0.9% 100 ML IVPB SCH (10:14)
[2020-04-10] MEDS: Sodium Chloride 0.9% 1,000 ML IV SCH (10:15)
[2020-04-10 14:11] LABS: #Eosinphils 0.2 thou/uL (0.0-0.7); #Lymphocytes 1.6 thou/uL (1.20-3.40); #Monocytes 0.4 thou/uL (0.11-0.59); #Neutrophils 4.5 thou/uL (1.40-6.50); %Basophils 0.5 % (0.0-1.0); %Eosinophils 2.4 % (0.0-10.0); %Lymphocytes 24.4 % (21.0-51.0); %Monocytes 6.3 % (0.0-10.0); %Neutrophils 66.4 % (42.0-75.0); Hemoglobin 9.6 g/dL (12.0-16.0); Mean Corpuscular HGB CONC 30.3 g/dL (32.0-36.0); Mean Corpuscular Hemoglobin 24.7 pg (27.0-31.0); Mean Corpuscular Volume 81.5 fL (78.0-98.0); Mean Platelet Volume 9.1 fL (7.4-10.4); Platelet Count 143 thou/uL (130-400); RBC Distribution Width 15.3 % (11.5-14.5); Red Blood Cell (RBC) Count 3.88 mill/uL (4.20-5.40); White Blood Cell (WBC) Count 6.7 thou/uL (4.8-10.8)
[2020-04-10 14:35] LABS: Anion Gap 11 mmol/L (10-20); BUN (Urea Nitrogen) 10 mg/dL (9.8-20.1); Calc. Creatinine Clearance 94 mL/min (70-130); Calcium 10.6 mg/dL (7.8-10.44); Carbon Dioxide 25 mmol/L (23-31); Chloride 115 mmol/L (98-107); Glucose 75 mg/dL (83-110); Potassium 3.2 mmol/L (3.5-5.1); Sodium 148 mmol/L (136-145)
--- NOTE | 2020-04-10 16:09 | PDOC.HOSPP ---
- Subjective Encounter Date: 04/10/20 Subjective: patient in bed, remains altered, no events overnight - Objective Vital Signs & Weight: Vital Signs (12 hours) Temp Pulse Resp BP Pulse Ox 04/10/20 10:38 98.1 F 108 H 16 135/71 100 04/10/20 08:00 106 H 16 117/82 100 Weight Admit Weight 167 lb 1.6 oz Weight 167 lb 1.6 oz I&O: 04/09/20 04/10/20 04/11/20 06:59 06:59 06:59 Intake Total 874 Output Total 600 Balance 274 Result Diagrams: 04/10/20 14:01 04/10/20 14:01 Radiology Reviewed by me: Yes Hospitalist ROS - Review of Systems ROS unobtainable: due to mental status - Medication Medications: Active Medications Generic Name Dose Route Start Last Admin Trade Name Freq PRN Reason Stop Dose Admin Carvedilol 12.5 mg 04/09/20 17:00 04/10/20 10:12 Carvedilol 6.25 Mg Tab PER TUBE 12.5 mg BID-WM MICHAEL Administration Clonidine 0.3 mg 04/09/20 20:00 04/09/20 19:44 Clonidine 0.3mg/24 Hour Patch TD 0.3 mg Q4D@2000 MICHAEL Administration Enoxaparin Sodium 40 mg 04/09/20 09:00 04/10/20 10:12 Enoxaparin Sodium 40 Mg/0.4 Ml Syringe SC 40 mg 0900 MICHAEL Administration Ceftriaxone Sodium 2 gm/ 100 mls @ 200 mls/hr 04/09/20 09:00 04/10/20 10:14 Sodium Chloride IVPB 100 mls Q24HR MICHAEL Administration Sodium Chloride 1,000 mls @ 75 mls/hr 04/09/20 19:20 04/10/20 10:15 Normal Saline 0.9% IV 1,000 mls .[id number] MICHAEL Administration Levetiracetam 500 mg 04/09/20 09:00 04/10/20 10:12 Levetiracetam 500 Mg/5 Ml Oral Solution PO 500 mg BID MICHAEL Administration Rosuvastatin Calcium 20 mg 04/09/20 21:00 04/09/20 19:44 Rosuvastatin 20 Mg Tab PER TUBE 20 mg HS MICHAEL Administration Sodium Chloride 10 ml 04/09/20 09:00 04/10/20 10:03 Flush - Normal Saline 10 Ml Syringe IVF Not Given Q12HR MICHAEL - Exam General Appearance: NAD Eye: PERRL, anicteric sclera ENT: normocephalic atraumatic, no oropharyngeal lesions, moist mucosa Neck: supple, symmetric, no JVD, no thyromegaly, no lymphadenopathy, no carotid bruit Heart: RRR, no murmur, no gallops, no rubs, normal peripheral pulses Respiratory: CTAB, no wheezes, no rales, no ronchi, normal chest expansion, no t achypnea, normal percussion Gastrointestinal: soft, non-tender, non-distended, normal bowel sounds, no palpable masses, no hepatomegaly, no splenomegaly, no bruit Extremities: no cyanosis, no clubbing, no edema Skin: normal turgor, no lesions, no rashes Neurological: cranial nerve grossly intact, normal sensation to touch, no weakness, no focal deficits, no new deficit Musculoskeletal: normal tone, normal strength, no muscle wasting Psychiatric: not oriented Hosp A/P (1) Sepsis Code(s): A41.9 - SEPSIS, UNSPECIFIED ORGANISM Status: Acute (2) UTI (urinary tract infection) Status: Acute (3) Acute metabolic encephalopathy Code(s): G93.41 - METABOLIC ENCEPHALOPATHY Status: Acute (4) CAD (coronary artery disease) Code(s): I25.10 - ATHSCL HEART DISEASE OF [place] CORONARY ARTERY W/O ANG PCTRS Status: Chronic Qualifiers: Coronary Disease-Associated Artery/Lesion type: bypass graft [place] vs. transplanted heart: [place] heart (5) HLD (hyperlipidemia) Code(s): E78.5 - HYPERLIPIDEMIA, UNSPECIFIED Status: Chronic Qualifiers: Hyperlipidemia type: unspecified Qualified Code(s): E78.5 - Hyperlipidemia, unspecified (6) HTN (hypertension) Code(s): I10 - ESSENTIAL (PRIMARY) HYPERTENSION Status: Chronic Qualifiers: Hypertension type: essential hypertension Qualified Code(s): I10 - Essential (primary) hypertension - Plan 79y/o female with the stated pmhx who present with sepsis secondary to uti sepsis due to uti - elevated LA + tachycardia with a u/a consistent with uti - continue rocephin - f/u blood and urine cultures - f/u LA -> 2.4, then 1.3, monitor closely clinical condition htn - holding medication for now in the setting of sepsis # metabolic encephalopathy - treat as above # hypercalcemia - improving with IVF, perhaps hemoconcentration or related to parathyroid adenoma # covid 19 infection - covid positive, but symptoms not consistent with covid 19 pneumonia, suspect red centeno/not actual cause of symptoms, observe isolation precautions and monitor # hypokalemia - trend bmp, replace as needed continue rest of home meds
[2020-04-10] MEDS ORDERED: Potassium Chloride 20 MEQ/100 ML PREMIX BAG IVPB SCH (16:15)
[2020-04-10] MEDS ORDERED: Potassium Chloride 20 MEQ in Premix Bag 1 BAG IVPB SCH (16:45)
[2020-04-10] MEDS: Rosuvastatin 20 MG TAB PER TUBE SCH (23:07)
[2020-04-11] MEDS: Sodium Chloride 0.9% 1,000 ML IV SCH ×2 (04:52→20:39)
[2020-04-11 05:08] LABS: #Eosinphils 0.2 thou/uL (0.0-0.7); #Lymphocytes 1.7 thou/uL (1.20-3.40); #Monocytes 0.5 thou/uL (0.11-0.59); #Neutrophils 3.5 thou/uL (1.40-6.50); %Basophils 0.4 % (0.0-1.0); %Eosinophils 3.1 % (0.0-10.0); %Lymphocytes 29.5 % (21.0-51.0); %Monocytes 7.9 % (0.0-10.0); %Neutrophils 59.1 % (42.0-75.0); Hemoglobin 9.7 g/dL (12.0-16.0); Mean Corpuscular Hemoglobin 27.9 pg (27.0-31.0); Mean Corpuscular Volume 81.9 fL (78.0-98.0); Mean Platelet Volume 9.1 fL (7.4-10.4); Platelet Count 123 thou/uL (130-400); RBC Distribution Width 15.3 % (11.5-14.5); Red Blood Cell (RBC) Count 3.47 mill/uL (4.20-5.40); White Blood Cell (WBC) Count 5.9 thou/uL (4.8-10.8)
[2020-04-11 05:23] LABS: Anion Gap 14 mmol/L (10-20); BUN (Urea Nitrogen) 10 mg/dL (9.8-20.1); Calc. Creatinine Clearance 96 mL/min (70-130); Calcium 10.2 mg/dL (7.8-10.44); Carbon Dioxide 21 mmol/L (23-31); Chloride 116 mmol/L (98-107); Glucose 61 mg/dL (83-110); Potassium 3.6 mmol/L (3.5-5.1); Sodium 147 mmol/L (136-145)
[2020-04-11] MEDS: levETIRAcetam 500 mg/5 ml Oral Solution PO SCH ×2 (08:07→20:39)
[2020-04-11] MEDS: Enoxaparin Sodium 40 MG/0.4 ML SYRINGE SC SCH (08:07)
[2020-04-11] MEDS: Carvedilol 6.25 MG TAB PER TUBE SCH ×2 (08:07→17:03)
[2020-04-11] MEDS: cefTRIAXone\\ROCEPHIN 2 GM in Sodium Chloride 0.9% 100 ML IVPB SCH (08:09)
--- NOTE | 2020-04-11 11:40 | PDOC.HOSPP ---
- Subjective Encounter Date: 04/11/20 Subjective: Patient was seen and examined in bed. She appears generally confused however not in acute distress. She does not seem to understand my questions. Answers were generally in appropriate - Objective Vital Signs & Weight: Vital Signs (12 hours) Temp Pulse Resp BP Pulse Ox 04/11/20 08:00 96.9 F L 80 20 147/76 H 100 04/11/20 04:00 96.7 F L 83 22 H 152/94 H 100 04/11/20 00:00 179/80 H Weight Admit Weight 167 lb 1.6 oz Weight 167 lb 1.6 oz I&O: 04/10/20 04/11/20 04/12/20 06:59 06:59 06:59 Intake Total 874 1100 Output Total 600 400 Balance 274 700 Result Diagrams: 04/11/20 04:50 04/11/20 04:50 Hospitalist ROS - Review of Systems ROS unobtainable: due to mental status All other systems reviewed; all pertinent +/- noted in HPI/Subj - Medication Medications: Active Medications Generic Name Dose Route Start Last Admin Trade Name Freq PRN Reason Stop Dose Admin Carvedilol 12.5 mg 04/09/20 17:00 04/11/20 08:07 Carvedilol 6.25 Mg Tab PER TUBE 12.5 mg BID-WM IMCHAEL Administration Clonidine 0.3 mg 04/09/20 20:00 04/09/20 19:44 Clonidine 0.3mg/24 Hour Patch TD 0.3 mg Q4D@2000 MICHAEL Administration Enoxaparin Sodium 40 mg 04/09/20 09:00 04/11/20 08:07 Enoxaparin Sodium 40 Mg/0.4 Ml Syringe SC 40 mg 0900 MICHAEL Administration Ceftriaxone Sodium 2 gm/ 100 mls @ 200 mls/hr 04/09/20 09:00 04/11/20 08:09 Sodium Chloride IVPB 100 mls Q24HR MICHAEL Administration Sodium Chloride 1,000 mls @ 75 mls/hr 04/09/20 19:20 04/11/20 04:52 Normal Saline 0.9% IV 1,000 mls .[id number] MICHAEL Administration Levetiracetam 500 mg 04/09/20 09:00 04/11/20 08:07 Levetiracetam 500 Mg/5 Ml Oral Solution PO 500 mg BID MICHAEL Administration Rosuvastatin Calcium 20 mg 04/09/20 21:00 04/10/20 23:07 Rosuvastatin 20 Mg Tab PER TUBE 20 mg HS MICHAEL Administration Sodium Chloride 10 ml 04/09/20 09:00 04/11/20 08:07 Flush - Normal Saline 10 Ml Syringe IVF 10 ml Q12HR MICHAEL Administration - Exam General Appearance: awake alert Eye: PERRL, anicteric sclera ENT: normocephalic atraumatic Heart: RRR, no murmur, no gallops, no rubs Respiratory: CTAB, no wheezes, no rales Gastrointestinal: soft, non-tender, non-distended, normal bowel sounds, no pal pable masses Extremities: no cyanosis, no clubbing, no edema Neurological: cranial nerve grossly intact, no focal deficits Psychiatric - other findings: Patient generally confused. Oriented to self. Hosp A/P - Plan This is a 79-year-old female patient With a history of dementia admitted on account of altered mental status. She is Covid positive and being managed for sepsis secondary to UTI. Sepsis due to UTI Essentially improving Continue antibiotics on Rocephin No growth on cultures Continue monitoring. Covid infection Stable UTI Continue ceftriaxone Acute encephalopathy Resolved However generally confused at baseline Coronary disease Continue home meds. Hypertension Blood pressure stable Resume home meds Anemia Hemoglobin 9.7 from 12.1 We will monitor Do iron studies GI consult if worsens. Hypokalemiaat presentation Resolved VT prophylaxisLovenox CODE STATUSfull
[2020-04-11] MEDS: Rosuvastatin 20 MG TAB PER TUBE SCH (20:39)
[2020-04-12 05:53] LABS: #Eosinphils 0.2 thou/uL (0.0-0.7); #Lymphocytes 1.7 thou/uL (1.20-3.40); #Monocytes 0.7 thou/uL (0.11-0.59); #Neutrophils 4.7 thou/uL (1.40-6.50); %Basophils 0.2 % (0.0-1.0); %Eosinophils 2.6 % (0.0-10.0); %Lymphocytes 23.9 % (21.0-51.0); %Monocytes 8.9 % (0.0-10.0); %Neutrophils 64.5 % (42.0-75.0); Hemoglobin 10.6 g/dL (12.0-16.0); Mean Corpuscular HGB CONC 31.9 g/dL (32.0-36.0); Mean Corpuscular Volume 81.3 fL (78.0-98.0); Mean Platelet Volume 9.3 fL (7.4-10.4); Platelet Count 155 thou/uL (130-400); RBC Distribution Width 15.4 % (11.5-14.5); Red Blood Cell (RBC) Count 4.09 mill/uL (4.20-5.40); White Blood Cell (WBC) Count 7.3 thou/uL (4.8-10.8)
[2020-04-12 06:19] LABS: Anion Gap 12 mmol/L (10-20); BUN (Urea Nitrogen) 12 mg/dL (9.8-20.1); Calc. Creatinine Clearance 91 mL/min (70-130); Calcium 9.9 mg/dL (7.8-10.44); Carbon Dioxide 22 mmol/L (23-31); Chloride 112 mmol/L (98-107); Glucose 130 mg/dL (83-110); Iron 37 ug/dL (50-170); Iron Binding Capacity, Total 198 mcg/dL (265-497); Sodium 143 mmol/L (136-145)
[2020-04-12 06:27] LABS: Potassium 2.7 mmol/L (3.5-5.1)
[2020-04-12] MEDS ORDERED: Electrolyte Replacement Protocol 1 EACH FS SCH (07:00)
[2020-04-12] MEDS: levETIRAcetam 500 mg/5 ml Oral Solution PO SCH ×2 (11:29→20:13)
[2020-04-12] MEDS: Carvedilol 6.25 MG TAB PER TUBE SCH ×2 (11:29→16:59)
[2020-04-12] MEDS: Enoxaparin Sodium 40 MG/0.4 ML SYRINGE SC SCH (11:30)
[2020-04-12] MEDS: Potassium Bicarbonate/Cit Ac 20 MEQ TAB PER TUBE SCH ×2 (11:30→14:42)
[2020-04-12] MEDS: Sodium Chloride 0.9% 1,000 ML IV SCH (11:33)
[2020-04-12] MEDS: cefTRIAXone\\ROCEPHIN 2 GM in Sodium Chloride 0.9% 100 ML IVPB SCH (11:34)
--- NOTE | 2020-04-12 17:04 | PDOC.HOSPP ---
- Subjective Encounter Date: 04/12/20 non-verbal Subjective: Patient was seen and examined in bed. No significant changes overnight. She is still not oriented. She however denies any pain. - Objective Vital Signs & Weight: Vital Signs (12 hours) Temp Pulse Resp BP Pulse Ox 04/12/20 14:55 98.1 F 77 14 125/55 L 99 04/12/20 11:50 98.2 F 79 18 135/70 98 Weight Admit Weight 167 lb 1.6 oz Weight 167 lb 1.6 oz I&O: 04/11/20 04/12/20 04/13/20 06:59 06:59 06:59 Intake Total 3547 540 Output Total 2150 Balance 1397 540 Result Diagrams: 04/12/20 05:44 04/12/20 05:44 Hospitalist ROS - Review of Systems ROS unobtainable: due to mental status - Medication Medications: Active Medications Generic Name Dose Route Start Last Admin Trade Name Freq PRN Reason Stop Dose Admin Carvedilol 12.5 mg 04/09/20 17:00 04/12/20 16:59 Carvedilol 6.25 Mg Tab PER TUBE 12.5 mg BID-WM MICHAEL Administration Clonidine 0.3 mg 04/09/20 20:00 04/09/20 19:44 Clonidine 0.3mg/24 Hour Patch TD 0.3 mg Q4D@2000 MICHAEL Administration Enoxaparin Sodium 40 mg 04/09/20 09:00 04/12/20 11:30 Enoxaparin Sodium 40 Mg/0.4 Ml Syringe SC 40 mg 0900 MICHAEL Administration Ceftriaxone Sodium 2 gm/ 100 mls @ 200 mls/hr 04/09/20 09:00 04/12/20 11:34 Sodium Chloride IVPB 100 mls Q24HR MICHAEL Administration Sodium Chloride 1,000 mls @ 75 mls/hr 04/09/20 19:20 04/12/20 11:33 Normal Saline 0.9% IV 1,000 mls .[id number] MICHAEL Administration Levetiracetam 500 mg 04/09/20 09:00 04/12/20 11:29 Levetiracetam 500 Mg/5 Ml Oral Solution PO 500 mg BID MICHAEL Administration Rosuvastatin Calcium 20 mg 04/09/20 21:00 04/11/20 20:39 Rosuvastatin 20 Mg Tab PER TUBE 20 mg HS MICHAEL Administration Sodium Chloride 10 ml 04/09/20 09:00 04/12/20 11:34 Flush - Normal Saline 10 Ml Syringe IVF 10 ml Q12HR MICHAEL Administration - Exam General - other findings: Awake, not oriented Eye: PERRL, anicteric sclera Neck: supple, symmetric, no JVD Heart: RRR, no murmur, no gallops, no rubs Respiratory: CTAB, no wheezes, no rales Gastrointestinal: soft, non-tender, non-distended Extremities: no cyanosis, no clubbing, no edema Neurological: cranial nerve grossly intact, no focal deficits Musculoskeletal: normal tone, normal strength Psychiatric - other findings: She is only oriented to self. Hosp A/P - Plan This is a 79-year-old female patient With a history of dementia admitted on ac count of altered mental status. She is Covid positive and being managed for sepsis secondary to UTI. Sepsis due to UTI Continue antibiotics on Rocephin No growth on cultures so far Continue monitoring. Covid infection Stable UTI Continue ceftriaxone Acute encephalopathy Resolved However generally confused at baseline Coronary disease Continue home meds. Hypertension Blood pressure stable Resume home meds Anemia Hemoglobin 9.7 from 12.1 We will monitor Do iron studies GI consult if worsens. Hypokalemiaat presentation Continue replacement therapy Check magnesium Dysphagia Gastric tube in place Use for feeding VT prophylaxisLovenox CODE STATUSfull
[2020-04-12] MEDS: Rosuvastatin 20 MG TAB PER TUBE SCH (20:13)
[2020-04-13] MEDS: Sodium Chloride 0.9% 1,000 ML IV SCH ×2 (04:37→19:23)
[2020-04-13] MEDS ORDERED: Magnesium 2 GM/50 ML 2 GM in Premix Bag 1 BAG IVPB SCH (07:15)
[2020-04-13] MEDS: Carvedilol 6.25 MG TAB PER TUBE SCH ×2 (09:23→16:31)
[2020-04-13] MEDS: Enoxaparin Sodium 40 MG/0.4 ML SYRINGE SC SCH (09:24)
[2020-04-13] MEDS: cefTRIAXone\\ROCEPHIN 2 GM in Sodium Chloride 0.9% 100 ML IVPB SCH (09:26)
[2020-04-13] MEDS: levETIRAcetam 500 mg/5 ml Oral Solution PO SCH ×3 (10:15→21:28)
[2020-04-13 10:41] LABS: Anion Gap 11 mmol/L (10-20); BUN (Urea Nitrogen) 8 mg/dL (9.8-20.1); Calc. Creatinine Clearance 102 mL/min (70-130); Calcium 9.5 mg/dL (7.8-10.44); Carbon Dioxide 26 mmol/L (23-31); Chloride 111 mmol/L (98-107); Glucose 128 mg/dL (83-110); Potassium 3.7 mmol/L (3.5-5.1); Sodium 144 mmol/L (136-145)
--- NOTE | 2020-04-13 16:57 | EKG ---
Test Reason : Blood Pressure : / mmHG Vent. Rate : 121 BPM Atrial Rate : 121 BPM P-R Int : 160 ms QRS Dur : 122 ms QT Int : 342 ms P-R-T Axes : 045 097 025 degrees QTc Int : 485 ms Sinus tachycardia Right bundle branch block Abnormal ECG Confirmed by AJ RUDD ([id number]), editor managing newspaper YULIET OROURKE ([id number]) on 04/13/2020 4:56:50 PM Referred By: Confirmed By:AJ Huddleston
--- NOTE | 2020-04-13 19:55 | PDOC.HOSPP ---
- Subjective Encounter Date: 04/13/20 Encounter Time: 14:00 Subjective: F/u: encephalopathy Patient states that she is in [facility]. She does not know that she is in the hospital. She denies any complaints and states "she feels pretty good" - Objective Vital Signs & Weight: Vital Signs (12 hours) Temp Pulse Resp BP Pulse Ox 04/13/20 19:17 97.8 F 85 20 109/65 96 04/13/20 16:00 98.5 F 86 17 105/69 96 04/13/20 12:00 97.8 F 81 19 90/53 L 97 04/13/20 07:58 98.3 F 79 17 111/71 100 Weight Admit Weight 167 lb 1.6 oz Weight 167 lb 1.6 oz I&O: 04/12/20 04/13/20 04/14/20 06:59 06:59 06:59 Intake Total 3547 4905 1480 Output Total 2150 500 Balance 1397 4405 1480 Result Diagrams: 04/12/20 05:44 04/13/20 10:12 Hospitalist ROS - Review of Systems Constitutional: denies: fever, chills - Medication Medications: Active Medications Generic Name Dose Route Start Last Admin Trade Name Freq PRN Reason Stop Dose Admin Carvedilol 12.5 mg 04/09/20 17:00 04/13/20 16:31 Carvedilol 6.25 Mg Tab PER TUBE 12.5 mg BID-WM MICHAEL Administration Clonidine 0.3 mg 04/09/20 20:00 04/09/20 19:44 Clonidine 0.3mg/24 Hour Patch TD 0.3 mg Q4D@2000 MICHAEL Administration Enoxaparin Sodium 40 mg 04/09/20 09:00 04/13/20 09:24 Enoxaparin Sodium 40 Mg/0.4 Ml Syringe SC 40 mg 0900 MICHAEL Administration Ceftriaxone Sodium 2 gm/ 100 mls @ 200 mls/hr 04/09/20 09:00 04/13/20 09:26 Sodium Chloride IVPB 100 mls Q24HR MICHAEL Administration Sodium Chloride 1,000 mls @ 75 mls/hr 04/09/20 19:20 04/13/20 19:23 Normal Saline 0.9% IV Not Given .[id number] MICHAEL Levetiracetam 500 mg 04/09/20 09:00 04/13/20 11:26 Levetiracetam 500 Mg/5 Ml Oral Solution PO 500 mg BID MICHAEL Administration Rosuvastatin Calcium 20 mg 04/09/20 21:00 04/12/20 20:13 Rosuvastatin 20 Mg Tab PER TUBE 20 mg HS MICHAEL Administration Sodium Chloride 10 ml 04/09/20 09:00 04/13/20 09:26 Flush - Normal Saline 10 Ml Syringe IVF 10 ml Q12HR MICHAEL Administration - Exam General Appearance: NAD, awake alert Eye: PERRL, anicteric sclera ENT: normocephalic atraumatic, no oropharyngeal lesions Neck: no JVD Heart: RRR, no murmur, no gallops, no rubs Respiratory: CTAB, no wheezes, no rales, no ronchi Gastrointestinal: soft, non-tender, non-distended, normal bowel sounds Extremities: no cyanosis, no clubbing, no edema Skin: normal turgor, no lesions, no rashes Neurological: cranial nerve grossly intact, normal sensation to touch, no focal deficits, no new deficit Musculoskeletal: normal tone, normal strength, no muscle wasting Psychiatric: oriented to person Hosp A/P - Plan This is 79-year-old female who was sent from her [facility] due to altered mental status. She incidentally tested positive for Covid Acute encephalopathy-possibly from Covid vs UTI -She is oriented x1 currently. Ua positive but urine culture never done for unclear reason. CXR normal - continue ceftriaxone day 4 Dysphagia - speech therapy evaluated the patient on 04/11. Recommended PEG tube. Unable to reach family - appreciate speech re-evaluation Hypertension - continue coreg and clonidine Seizures - continue keppra Dementia - appears to be at her baseline. Will order PT evaluation and OT
[2020-04-13] MEDS: Rosuvastatin 20 MG TAB PER TUBE SCH (21:28)
[2020-04-13] MEDS: cloNIDine 0.3mg/24 Hour PATCH TD SCH (21:28)
[2020-04-14] MEDS: Carvedilol 6.25 MG TAB PER TUBE SCH ×2 (08:32→17:14)
[2020-04-14] MEDS: cefTRIAXone\\ROCEPHIN 2 GM in Sodium Chloride 0.9% 100 ML IVPB SCH (08:34)
[2020-04-14] MEDS: Sodium Chloride 0.9% 1,000 ML IV SCH (08:35)
[2020-04-14] MEDS: levETIRAcetam 500 mg/5 ml Oral Solution PO SCH (09:00)
[2020-04-14] MEDS: Enoxaparin Sodium 40 MG/0.4 ML SYRINGE SC SCH (17:12)
--- NOTE | 2020-04-14 19:13 | PDOC.DS.DS ---
Provider - Provider Date of Admission: 04/10/20 16:05 Date of Discharge: 04/14/20 Admitting Provider: Derek Alves Primary Care Physician: Tiarra Mendez MD Course - Hospital Course Hospital Course: Discharge Diagnoses: #Acute encephalopathy possibly from UTI versus COVID #Hypernatremia #Hypokalemia #Anemia Brief HPI: This is a 79 year old female with past medical history of dementia who was sent to the ER For altered mental status. The patient is normally oriented times one, but was oriented times zero. Her heart rate was 123 but otherwise she had no fever. UA showed turbid urine and 11-20 WBC. She was started on IV antibiotics and admitted for further workup. Hospital Course: Acute encephalopathy possibly from UTI versus COVID: the patient received IV ceftriaxone empirically for six days. Urine culture was not done for unclear reason earlier in hospital course, but would probably be negative at this point. She will be switched to oral cefdinir for one more day to complete a seven day course of antibiotics. She did test positive for COVID on 04/08. She did not require any oxygen while she was in the hospital and had no respiratory symptoms. At the time of discharge, she appears to be at her baseline. She is oriented to the [facility] and that she is in the hospital, but not the date which is improved from 04/13, where she did not know she was in the hospital. She will be discharged back to her [facility] for further care. Hypernatremia/Hypokalemia: she did have a high sodium that peaked at 148 and potassium as low as 2.7. These were replaced with fluids and potassium supplementation respectively. Her sodium and potassium were normalized on the day of discharge. Chronic malnutrition: continue tube feedings Abdominal pain: she had one episode of abdominal pain on the day of discharge with resolved after a bowel movement. Consider laxatives prn. Pertinent Studies: Chest X ray 04/08: normal Resuscitation Status: 04/08/20 23:34 Resuscitation Status Routine Resuscitation Status: FULL: Full Resuscitation - Labs Lab Results: 04/12/20 05:44 04/13/20 10:12 Abnormal Lab Results - Last 48 hrs 04/13/20 10:12: Chloride 111 H, BUN 8 L, Creatinine 0.55 L Microbiology - Entire Visit 04/08/20 20:20 Venous blood - Right Hand Blood Culture - Final NO GROWTH IN 5 DAYS 04/08/20 20:20 Venous blood - Left Hand Blood Culture - Final NO GROWTH IN 5 DAYS - Physical Exam Vitals: Vital Signs (12 hours) Temp Pulse Pulse Pulse Resp BP BP 04/14/20 11:30 78 76 04/14/20 08:49 97.8 F 80 20 135/82 04/14/20 08:32 121/80 Pulse Ox Pulse Ox Pulse Ox 04/14/20 11:30 98 97 04/14/20 08:49 97 04/14/20 08:32 Weight Admit Weight 167 lb 1.6 oz Weight 167 lb 1.6 oz Physical Exam: The patient was seen and examined on the day of discharge. General: alert, awake, oriented times two CV: RRR, no murmurs,rubs, gallops Lungs: CTAB Abdomen: +BS, soft, nontender, nondistended Extremities: no edema Problem - Time spent with Patient (mins): 40 Plan - Discharge Medications Prescriptions: Cefdinir 300 mg PO Q12HR #2 capsule Home Medications: Medication Instructions Recorded Confirmed Type Carvedilol [Coreg] 12.5 mg PER TUBE BID-WM tab 11/15/19 04/10/20 Rx Rosuvastatin [Crestor] 20 mg PER TUBE HS tab 11/15/19 04/10/20 Rx cloNIDine [Ctepyrfu-WKM-3 Patch] 0.3 mg TD Q4D@2000 patch 11/15/19 04/10/20 Rx levETIRAcetam [Keppra Oral 500 mg PO BID ml 11/15/19 04/10/20 Rx Solution] Cefdinir 300 mg PO Q12HR #2 capsule 04/14/20 Rx Allergies: No Known Drug Allergies Allergy (Verified 04/10/20 01:33) Per son, Josse Johnson, and [employer]work. - Discharge Instructions Discharge Instructions:: PEG FEEDING: JEVITY 1.5 RASHEEDA/ML 6 CANS PER DAY, 100 CC WATER FLUSHES BEFORE AND AFTER FEEDING PT/OT EVAL AND TREATMENT Activity:: Activity as Tolerated Nourishment:: Heart Healthy Diet - Follow up Plan Referrals: Tiarra Mendez MD [Primary Care Provider] - 7 Days Disposition: SENIOR CARE/ASSISTED LIVING Quality - Care Measures CORE MEASURES:: N/A
[2020-04-14 20:00] VITALS: BP 122/78; TEMP 98.1
== END 2020-04-14 19:55 | DRG 871 ==
LOC: ERS 19:55 → ERHOLD 22:02 → 2SW 04-09 19:03 → OBSVTOIN 04-10 16:05 → T4-B 04-12 18:32
PROVIDERS: ADMIT Internal Medicine; ATTEND Internal Medicine
PROC: 8E0ZXY6 Isolation (ICD-10-PCS; principal; 2020-04-10)
DX: A41.9 Sepsis, unspecified organism (principal); U07.1 COVID-19; G93.41 Metabolic encephalopathy; N39.0 Urinary tract infection, site not specified; E46 Unspecified protein-calorie malnutrition; E87.0 Hyperosmolality and hypernatremia; E87.6 Hypokalemia; D64.9 Anemia, unspecified; I25.10 Atherosclerotic heart disease of native coronary artery without angina pectoris; E78.5 Hyperlipidemia, unspecified; I10 Essential (primary) hypertension; D35.1 Benign neoplasm of parathyroid gland; E83.52 Hypercalcemia; F03.90 Unspecified dementia, unspecified severity, without behavioral disturbance, psychotic disturbance, mood disturbance, and anxiety; R13.10 Dysphagia, unspecified; R56.9 Unspecified convulsions; W06.XXXA Fall from bed, initial encounter; S01.81XA Laceration without foreign body of other part of head, initial encounter; Z68.29 Body mass index [BMI] 29.0-29.9, adult; Z79.899 Other long term (current) drug therapy; Z86.19 Personal history of other infectious and parasitic diseases; Z86.018 Personal history of other benign neoplasm; Z95.1 Presence of aortocoronary bypass graft; Z93.1 Gastrostomy status; I69.391 Dysphagia following cerebral infarction
CPT/HCPCS: 12011; 36415; 51701; 70450; 71045; 72125; 72170; 80048; 80053; 81003; 81015; 82728; 83540; 83550; 83605; 83690; 83735; 84484; 85007; 85025; 85027; 87040; 87635; 93005; 96365; 96366; 96367; 96372; 96375; 96376; G0378; J0692; J0696; J1650; J1953; J3370; J3475; J3480; J3490; U0003

== ENCOUNTER 2020-05-15 11:35 | Outpatient (CLI) | payer MEDICARE, MEDICAID ==
--- NOTE | 2020-05-15 13:32 | RAD ---
2 VIEWS CHEST: Date: 05/15/2020 COMPARISON: 04/08/2020. HISTORY: Pneumonitis due to inhalation of food and vomit, aspiration. FINDINGS: Stable midline sternotomy wires and postoperative clips. No pneumothorax, pleural fluid, lobar consol idation, or alveolar edema. Stable nonspecific mild increased linear interstitial density. IMPRESSION: No acute findings. POS: [facility]
== END 2020-05-15 11:36 | disposition home or self-care (01) ==
LOC: RAD 11:35
PROVIDERS: ATTEND Family Medicine
DX: J69.0 Pneumonitis due to inhalation of food and vomit (principal)
CPT/HCPCS: 71046

== ENCOUNTER 2021-04-28 19:02 | Inpatient (IN) | payer MEDICARE, OTHER ==
[2021-04-28 19:58] LABS: ALT (SGPT) 36 U/L (8-55); AST (SGOT) 38 U/L (5-34); Alkaline Phosphatase 170 U/L (40-110); Anion Gap 13 mmol/L (10-20); BUN (Urea Nitrogen) 53 mg/dL (9.8-20.1); Bilirubin, Total 0.3 mg/dL (0.2-1.2); Calc. Creatinine Clearance 0 mL/min (70-130); Carbon Dioxide 24 mmol/L (23-31); Chloride 102 mmol/L (98-107); Globulin 4.5 g/dL (2.4-3.5); Glucose 236 mg/dL (83-110); Potassium 3.7 mmol/L (3.5-5.1); Protein, Total 7.5 g/dL (5.8-8.1); Sodium 135 mmol/L (136-145)
[2021-04-28 20:10] LABS: Calcium 12.8 mg/dL (7.8-10.44)
[2021-04-28 20:19] LABS: Hemoglobin 11.3 g/dL (12.0-16.0); Mean Corpuscular Hemoglobin 26.1 pg (27.0-31.0); Mean Corpuscular Volume 84.3 fL (78.0-98.0); Red Blood Cell (RBC) Count 4.33 mill/uL (4.20-5.40)
[2021-04-28] MEDS ORDERED: Cefepime 2 GM VIAL ONE (20:22)
[2021-04-28 20:39] LABS: Bilirubin Negative (Negative); Blood, Urine Trace (Negative); Clarity Turbid (Clear); Glucose, Urine (Dipstick) Normal (Negative); Ketone, Urine Negative (Negative); Leukocyte 500 Leu/uL (Negative); Nitrite Negative (Negative); Protein, Urine (Dipstick) 70 mg/dL (Neg-Trace); Specific Gravity, Urine 1.015 (1.002-1.036); Squamous Epithelial 0-3 HPF (0-3)
[2021-04-28 20:51] LABS: Band 20 % (5-11); Eosinophils 1 % (0-10); Lymphocytes 10 % (21-51); MDiff Complete? YES; Mean Platelet Volume 9.6 fL (7.4-10.4); Monocytes 6 % (0-10); Neutrophil 63 % (42-75); Platelet Count 53 thou/uL (130-400); Platelet Morphology Comment Appears Decreased
[2021-04-28 21:01] LABS: Bacteria/HPF 2+ HPF (None Seen); RBC/HPF 0-3 HPF (0-3)
[2021-04-28] MEDS ORDERED: Vancomycin 1 GM/200 ML BAG ONE (21:40)
[2021-04-28] MEDS ORDERED: VANCOMYCIN 2 GRAM/400 ML BAG 2 GM in Premix Bag 1 BAG IVPB SCH (22:00)
[2021-04-28] MEDS ORDERED: Ondansetron PF 4 MG/2 ML Vial IVP PRN (22:52)
[2021-04-28] MEDS ORDERED: Ondansetron ODT 4 MG TAB PO PRN (22:52)
[2021-04-28] MEDS ORDERED: Acetaminophen 650 MG Suppository PR PRN (22:52)
[2021-04-28 23:06] LABS: SARS-CoV-2 NAA Rapid Test Not Detected (NotDetected)
[2021-04-29 00:09] LABS: Anion Gap 14 mmol/L (10-20); BUN (Urea Nitrogen) 44 mg/dL (9.8-20.1); Calc. Creatinine Clearance 0 mL/min (70-130); Carbon Dioxide 20 mmol/L (23-31); Chloride 109 mmol/L (98-107); Glucose 122 mg/dL (83-110); Potassium 4.3 mmol/L (3.5-5.1); Sodium 139 mmol/L (136-145)
[2021-04-29 00:15] LABS: Calcium 12.3 mg/dL (7.8-10.44)
[2021-04-29] MEDS ORDERED: Sodium Chloride 0.9% 1,000 ML IV SCH (04:30)
[2021-04-29 08:13] LABS: Anion Gap 12 mmol/L (10-20); BUN (Urea Nitrogen) 38 mg/dL (9.8-20.1); Calc. Creatinine Clearance 0 mL/min (70-130); Carbon Dioxide 23 mmol/L (23-31); Chloride 111 mmol/L (98-107); Glucose 97 mg/dL (83-110); Hemoglobin 11.3 g/dL (12.0-16.0); Mean Corpuscular HGB CONC 31.4 g/dL (32.0-36.0); Mean Corpuscular Hemoglobin 26.1 pg (27.0-31.0); Mean Corpuscular Volume 83.2 fL (78.0-98.0); Mean Platelet Volume 9.2 fL (7.4-10.4); Platelet Count 86 thou/uL (130-400); Potassium 3.8 mmol/L (3.5-5.1); RBC Distribution Width 12.9 % (11.5-14.5); Red Blood Cell (RBC) Count 4.35 mill/uL (4.20-5.40); Sodium 142 mmol/L (136-145); White Blood Cell (WBC) Count 13.5 thou/uL (4.8-10.8)
[2021-04-29 08:18] LABS: Calcium 12.7 mg/dL (7.8-10.44)
[2021-04-29] MEDS ORDERED: Cefepime 2 GM VIAL ONE (08:54)
[2021-04-29] MEDS: Cefepime 2 GM in Sodium Chloride 0.9% 100 ML IVPB SCH ×2 (09:04→20:20)
[2021-04-29 09:07] LABS: Band 19 % (5-11); Lymphocytes 15 % (21-51); MDiff Complete? YES; Monocytes 12 % (0-10); Neutrophil 54 % (42-75); Platelet Morphology Comment Appears Decreased; Polychromasia SLIGHT = 2-3 cells (100X) (0-2/hpf)
[2021-04-29] MEDS ORDERED: VANCOMYCIN 1.25 GM/250 ML BAG 1.25 GM in Premix Bag 1 BAG IVPB SCH (12:00)
[2021-04-29] MEDS: Sodium Chloride 0.9% 1,000 ML IV SCH ×2 (12:54→20:21)
[2021-04-29] MEDS ORDERED: Furosemide 40 MG/4 ML VIAL SLOW IVP SCH (13:45)
[2021-04-29] MEDS ORDERED: Sodium Chloride 0.9% 500 ML IV SCH (13:45)
[2021-04-29] MEDS ORDERED: FLU VACC QS2021-22(65YR UP)/PF 240 MCG/0.7 ML SYRINGE IM ONE (17:00)
[2021-04-30] MEDS ORDERED: VANCOMYCIN 1.25 GM/250 ML BAG 1.25 GM in Premix Bag 1 BAG IVPB SCH (01:00)
[2021-04-30] MEDS: Sodium Chloride 0.9% 1,000 ML IV SCH ×2 (03:14→13:35)
[2021-04-30 07:35] LABS: Mean Corpuscular HGB CONC 30.1 g/dL (32.0-36.0); Mean Corpuscular Hemoglobin 25.4 pg (27.0-31.0); Mean Corpuscular Volume 84.3 fL (78.0-98.0); Mean Platelet Volume 9.1 fL (7.4-10.4); Platelet Count 95 thou/uL (130-400); RBC Distribution Width 13.2 % (11.5-14.5); Red Blood Cell (RBC) Count 4.34 mill/uL (4.20-5.40); White Blood Cell (WBC) Count 11.4 thou/uL (4.8-10.8)
[2021-04-30 07:51] LABS: Anion Gap 12 mmol/L (10-20); BUN (Urea Nitrogen) 38 mg/dL (9.8-20.1); Calc. Creatinine Clearance 71 mL/min (70-130); Carbon Dioxide 25 mmol/L (23-31); Chloride 117 mmol/L (98-107); Glucose 94 mg/dL (83-110); Potassium 3.3 mmol/L (3.5-5.1); Sodium 151 mmol/L (136-145)
[2021-04-30 07:58] LABS: Calcium 12.8 mg/dL (7.8-10.44)
[2021-04-30 08:23] LABS: Band 13 % (5-11); Eosinophils 4 % (0-10); Hypochromia SLIGHT = 6-15 cells (100X) (0-5/hpf); Lymphocytes 19 % (21-51); MDiff Complete? YES; Monocytes 10 % (0-10); Neutrophil 54 % (42-75); Platelet Morphology Comment Appears Decreased; Polychromasia SLIGHT = 2-3 cells (100X) (0-2/hpf)
[2021-04-30] MEDS: Cefepime 2 GM in Sodium Chloride 0.9% 100 ML IVPB SCH ×2 (09:16→20:23)
[2021-04-30] MEDS ORDERED: Vancomycin 1.5 GRAM/300 ML BAG 1.5 GM in Premix Bag 1 BAG IVPB SCH (13:00)
[2021-04-30 13:24] VITALS: BMI 37.8
[2021-04-30] MEDS ORDERED: Carvedilol 6.25 MG TAB PER TUBE SCH (17:00)
[2021-04-30] MEDS: Dextrose 5% in Water 1,000 ML IV SCH (17:16)
[2021-04-30] MEDS: Calcitonin,Synthetic 200 UNITS/ML MDV SC SCH (17:17)
[2021-04-30] MEDS ORDERED: cloNIDine 0.3mg/24 Hour PATCH TD SCH (20:00)
[2021-04-30] MEDS: levETIRAcetam 500 mg/5 ml Oral Solution PO SCH (20:23)
[2021-04-30] MEDS: Rosuvastatin 20 MG TAB PER TUBE SCH (20:23)
[2021-04-30] MEDS: Acetaminophen 325 MG TAB PO PRN (20:25)
[2021-05-01] MEDS: Calcitonin,Synthetic 200 UNITS/ML MDV SC SCH ×2 (03:14→17:58)
[2021-05-01] MEDS: Dextrose 5% in Water 1,000 ML IV SCH ×2 (05:12→17:07)
[2021-05-01] MEDS: Acetaminophen 325 MG TAB PO PRN (05:53)
[2021-05-01 06:31] LABS: Hemoglobin 10.5 g/dL (12.0-16.0); Mean Corpuscular HGB CONC 30.9 g/dL (32.0-36.0); Mean Corpuscular Hemoglobin 25.9 pg (27.0-31.0); Mean Corpuscular Volume 83.7 fL (78.0-98.0); Platelet Count 105 thou/uL (130-400); RBC Distribution Width 13.3 % (11.5-14.5); Red Blood Cell (RBC) Count 4.06 mill/uL (4.20-5.40); White Blood Cell (WBC) Count 11.9 thou/uL (4.8-10.8)
[2021-05-01 06:38] LABS: ALT (SGPT) 41 U/L (8-55); AST (SGOT) 43 U/L (5-34); Albumin 2.6 g/dL (3.4-4.8); Alkaline Phosphatase 141 U/L (40-110); Anion Gap 13 mmol/L (10-20); BUN (Urea Nitrogen) 34 mg/dL (9.8-20.1); Bilirubin, Total 0.4 mg/dL (0.2-1.2); Calc. Creatinine Clearance 79 mL/min (70-130); Calcium 11.6 mg/dL (7.8-10.44); Carbon Dioxide 21 mmol/L (23-31); Chloride 120 mmol/L (98-107); Globulin 4.4 g/dL (2.4-3.5); Glucose 155 mg/dL (83-110); Sodium 151 mmol/L (136-145)
[2021-05-01 06:44] LABS: Potassium 2.9 mmol/L (3.5-5.1)
[2021-05-01] MEDS: Cefepime 2 GM in Sodium Chloride 0.9% 100 ML IVPB SCH ×2 (08:22→20:51)
[2021-05-01] MEDS: levETIRAcetam 500 mg/5 ml Oral Solution PO SCH ×2 (08:23→20:52)
[2021-05-01 08:28] LABS: Band 25 % (5-11); Eosinophils 1 % (0-10); Hypochromia SLIGHT = 6-15 cells (100X) (0-5/hpf); Lymphocytes 12 % (21-51); MDiff Complete? YES; Monocytes 2 % (0-10); Neutrophil 57 % (42-75); Platelet Morphology Comment Appears Decreased; Polychromasia SLIGHT = 2-3 cells (100X) (0-2/hpf); Reactive Lymphocytes 3 % (0-10)
[2021-05-01] MEDS: Potassium Chloride 20 MEQ TAB PO SCH ×2 (10:47→14:38)
[2021-05-01 12:23] LABS: Vancomycin, Trough 23.9 ug/mL
[2021-05-01] MEDS ORDERED: Calcitonin,Synthetic 200 UNITS/ML MDV SC SCH (18:00)
[2021-05-01] MEDS: Rosuvastatin 20 MG TAB PER TUBE SCH (20:52)
[2021-05-02] MEDS ORDERED: Calcitonin,Synthetic 200 UNITS/ML MDV SC SCH ×4 (04:00→08:15)
[2021-05-02] MEDS ORDERED: PRE FILLED SC SCH (08:00)
[2021-05-02] MEDS ORDERED: CALCITONIN SALMON SYNTHETIC SC SCH (08:00)
[2021-05-02] MEDS: levETIRAcetam 500 mg/5 ml Oral Solution PO SCH ×2 (09:18→21:24)
[2021-05-02] MEDS: Cefepime 2 GM in Sodium Chloride 0.9% 100 ML IVPB SCH ×2 (09:18→21:21)
[2021-05-02] MEDS: Dextrose 5% in Water 1,000 ML IV SCH (09:28)
[2021-05-02 10:11] LABS: ALT (SGPT) 26 U/L (8-55); AST (SGOT) 20 U/L (5-34); Albumin 2.5 g/dL (3.4-4.8); Alkaline Phosphatase 125 U/L (40-110); Anion Gap 13 mmol/L (10-20); BUN (Urea Nitrogen) 22 mg/dL (9.8-20.1); Bilirubin, Total 0.3 mg/dL (0.2-1.2); Calc. Creatinine Clearance 93 mL/min (70-130); Calcium 10.4 mg/dL (7.8-10.44); Carbon Dioxide 21 mmol/L (23-31); Chloride 117 mmol/L (98-107); Globulin 4.1 g/dL (2.4-3.5); Glucose 159 mg/dL (83-110); Potassium 3.6 mmol/L (3.5-5.1); Protein, Total 6.6 g/dL (5.8-8.1); Sodium 147 mmol/L (136-145)
[2021-05-02 10:27] LABS: #Eosinphils 0.3 thou/uL (0.0-0.7); #Lymphocytes 1.7 thou/uL (1.20-3.40); #Neutrophils 13.4 thou/uL (1.40-6.50); %Basophils 0.1 % (0.0-1.0); %Eosinophils 1.9 % (0.0-10.0); %Lymphocytes 10.4 % (21.0-51.0); %Monocytes 5.9 % (0.0-10.0); %Neutrophils 81.5 % (42.0-75.0); Hemoglobin 10.1 g/dL (12.0-16.0); Mean Corpuscular HGB CONC 31.1 g/dL (32.0-36.0); Mean Corpuscular Hemoglobin 25.9 pg (27.0-31.0); Mean Corpuscular Volume 83.2 fL (78.0-98.0); Mean Platelet Volume 8.9 fL (7.4-10.4); Platelet Count 116 thou/uL (130-400); RBC Distribution Width 13.4 % (11.5-14.5); Red Blood Cell (RBC) Count 3.89 mill/uL (4.20-5.40); White Blood Cell (WBC) Count 16.2 thou/uL (4.8-10.8)
[2021-05-02] MEDS: Rosuvastatin 20 MG TAB PER TUBE SCH (21:24)
[2021-05-02] MEDS: Senokot S 8.6-50 MG TAB PO SCH (21:24)
[2021-05-03] MEDS: Cefepime 2 GM in Sodium Chloride 0.9% 100 ML IVPB SCH ×2 (09:18→21:00)
[2021-05-03] MEDS: Senokot S 8.6-50 MG TAB PO SCH ×2 (09:26→21:02)
[2021-05-03] MEDS: levETIRAcetam 500 mg/5 ml Oral Solution PO SCH ×2 (09:26→21:02)
[2021-05-03 11:32] LABS: Hemoglobin 10.4 g/dL (12.0-16.0); Mean Corpuscular HGB CONC 31.6 g/dL (32.0-36.0); Mean Corpuscular Hemoglobin 26.4 pg (27.0-31.0); Mean Corpuscular Volume 83.5 fL (78.0-98.0); Mean Platelet Volume 8.4 fL (7.4-10.4); Platelet Count 120 thou/uL (130-400); RBC Distribution Width 13.3 % (11.5-14.5); Red Blood Cell (RBC) Count 3.93 mill/uL (4.20-5.40)
[2021-05-03 11:58] LABS: Anion Gap 11 mmol/L (10-20); BUN (Urea Nitrogen) 19 mg/dL (9.8-20.1); CRP (Inflammatory) 4.21 mg/dL (= or < 0.5); Calc. Creatinine Clearance 102 mL/min (70-130); Calcium 10.2 mg/dL (7.8-10.44); Carbon Dioxide 25 mmol/L (23-31); Chloride 115 mmol/L (98-107); Glucose 122 mg/dL (83-110); Potassium 3.2 mmol/L (3.5-5.1); Sodium 148 mmol/L (136-145)
[2021-05-03] MEDS ORDERED: VANCOMYCIN 1.25 GM/250 ML BAG 1.25 GM in Premix Bag 1 BAG IVPB SCH ×2 (12:00→21:00)
[2021-05-03 12:10] LABS: Band 3 % (5-11); Basophilic Stippling SLIGHT = 1-2 cells (100X) (None Seen); Eosinophils 5 % (0-10); Hypochromia SLIGHT = 6-15 cells (100X) (0-5/hpf); Lymphocytes 10 % (21-51); MDiff Complete? YES; Monocytes 3 % (0-10); Neutrophil 78 % (42-75); Platelet Morphology Comment Appears Decreased; Polychromasia SLIGHT = 2-3 cells (100X) (0-2/hpf); Reactive Lymphocytes 1 % (0-10); Target Cells SLIGHT = 2-5 cells (100X) (0-1/hpf)
[2021-05-03] MEDS ORDERED: Electrolyte Replacement Protocol 1 EACH FS PRN (12:15)
[2021-05-03] MEDS: Vancomycin 1.5 GRAM/300 ML BAG 1.5 GM in Premix Bag 1 BAG IVPB SCH (14:25)
[2021-05-03] MEDS ORDERED: Potassium Chloride 20 MEQ TAB PO SCH (15:00)
[2021-05-03] MEDS: Carvedilol 6.25 MG TAB PER TUBE SCH (16:56)
[2021-05-03] MEDS: Rosuvastatin 20 MG TAB PER TUBE SCH (21:02)
[2021-05-04 09:08] LABS: Anion Gap 12 mmol/L (10-20); BUN (Urea Nitrogen) 21 mg/dL (9.8-20.1); Calc. Creatinine Clearance 106 mL/min (70-130); Calcium 10.1 mg/dL (7.8-10.44); Carbon Dioxide 23 mmol/L (23-31); Chloride 114 mmol/L (98-107); Glucose 144 mg/dL (83-110); Sodium 145 mmol/L (136-145)
[2021-05-04] MEDS: levETIRAcetam 500 mg/5 ml Oral Solution PO SCH ×2 (09:42→22:18)
[2021-05-04] MEDS: Carvedilol 6.25 MG TAB PER TUBE SCH ×2 (09:46→17:56)
[2021-05-04] MEDS: Senokot S 8.6-50 MG TAB PO SCH ×2 (09:46→22:19)
[2021-05-04] MEDS: Cefepime 2 GM in Sodium Chloride 0.9% 100 ML IVPB SCH ×2 (09:47→22:19)
[2021-05-04 11:08] LABS: Mean Corpuscular HGB CONC 31.8 g/dL (32.0-36.0); Mean Corpuscular Hemoglobin 26.6 pg (27.0-31.0); Mean Corpuscular Volume 83.6 fL (78.0-98.0); RBC Distribution Width 13.5 % (11.5-14.5); Red Blood Cell (RBC) Count 3.75 mill/uL (4.20-5.40)
[2021-05-04] MEDS: Acetaminophen 325 MG TAB PO PRN (11:32)
[2021-05-04 11:37] LABS: Eosinophils 1 % (0-10); Hypochromia SLIGHT = 6-15 cells (100X) (0-5/hpf); Lymphocytes 13 % (21-51); MDiff Complete? YES; Mean Platelet Volume 8.7 fL (7.4-10.4); Neutrophil 86 % (42-75); Platelet Count 131 thou/uL (130-400); Platelet Morphology Comment Appears Adequate; Target Cells SLIGHT = 2-5 cells (100X) (0-1/hpf); White Blood Cell (WBC) Count 20.4 thou/uL (4.8-10.8)
[2021-05-04] MEDS: Vancomycin 1.5 GRAM/300 ML BAG 1.5 GM in Premix Bag 1 BAG IVPB SCH (14:12)
[2021-05-04] MEDS ORDERED: Ketorolac Tromethamine 30 MG/ML VIAL IVP PRN (15:05)
[2021-05-04] MEDS ORDERED: Ketorolac Tromethamine 30 MG/ML VIAL IVP SCH (15:15)
[2021-05-04] MEDS: VANCOMYCIN IVPB SCH ×2 (15:27→15:59)
[2021-05-04] MEDS ORDERED: Vancomycin 1 GM in Premix Bag 1 BAG IVPB SCH (15:45)
[2021-05-04] MEDS: Sodium Chloride 0.9% 1,000 ML IV SCH (17:55)
[2021-05-04] MEDS: Rosuvastatin 20 MG TAB PER TUBE SCH (22:19)
[2021-05-05 03:44] LABS: #Eosinphils 0.2 thou/uL (0.0-0.7); #Lymphocytes 1.9 thou/uL (1.20-3.40); #Monocytes 0.8 thou/uL (0.11-0.59); #Neutrophils 15.7 thou/uL (1.40-6.50); %Eosinophils 1.3 % (0.0-10.0); %Lymphocytes 10.1 % (21.0-51.0); %Monocytes 4.2 % (0.0-10.0); %Neutrophils 84.4 % (42.0-75.0); Hemoglobin 9.1 g/dL (12.0-16.0); Mean Corpuscular HGB CONC 31.6 g/dL (32.0-36.0); Mean Corpuscular Hemoglobin 26.3 pg (27.0-31.0); Mean Corpuscular Volume 83.2 fL (78.0-98.0); Mean Platelet Volume 8.6 fL (7.4-10.4); Platelet Count 163 thou/uL (130-400); RBC Distribution Width 13.3 % (11.5-14.5); Red Blood Cell (RBC) Count 3.44 mill/uL (4.20-5.40); White Blood Cell (WBC) Count 18.6 thou/uL (4.8-10.8)
[2021-05-05 04:08] LABS: Anion Gap 10 mmol/L (10-20); BUN (Urea Nitrogen) 21 mg/dL (9.8-20.1); Calc. Creatinine Clearance 106 mL/min (70-130); Calcium 9.6 mg/dL (7.8-10.44); Carbon Dioxide 24 mmol/L (23-31); Chloride 115 mmol/L (98-107); Glucose 113 mg/dL (83-110); Potassium 3.4 mmol/L (3.5-5.1); Sodium 146 mmol/L (136-145)
[2021-05-05] MEDS: Sodium Chloride 0.9% 1,000 ML IV SCH (05:15)
[2021-05-05] MEDS: Acetaminophen 500 MG TAB PO PRN (05:30)
[2021-05-05] MEDS ORDERED: Potassium Chloride 20 MEQ TAB PO SCH (07:00)
[2021-05-05] MEDS: Carvedilol 6.25 MG TAB PER TUBE SCH ×2 (08:27→17:18)
[2021-05-05] MEDS: levETIRAcetam 500 mg/5 ml Oral Solution PO SCH ×2 (08:27→21:22)
[2021-05-05] MEDS: Senokot S 8.6-50 MG TAB PO SCH ×2 (08:28→21:24)
[2021-05-05] MEDS: Cefepime 2 GM in Sodium Chloride 0.9% 100 ML IVPB SCH ×2 (08:28→21:21)
[2021-05-05 10:59] LABS: SARS-CoV-2 PCR by NAA Not Detected (NotDetected)
[2021-05-05 15:25] LABS: Vancomycin, Trough 16.3 ug/mL
[2021-05-05] MEDS: Vancomycin 1.5 GRAM/300 ML BAG 1.5 GM in Premix Bag 1 BAG IVPB SCH (17:18)
[2021-05-05] MEDS: Dextrose 5% in Water 1,000 ML IV SCH (17:19)
[2021-05-05] MEDS: Rosuvastatin 20 MG TAB PER TUBE SCH (21:22)
[2021-05-06] MEDS: Dextrose 5% in Water 1,000 ML IV SCH ×3 (05:01→21:32)
[2021-05-06 06:35] LABS: #Eosinphils 0.2 thou/uL (0.0-0.7); #Lymphocytes 1.9 thou/uL (1.20-3.40); #Monocytes 0.5 thou/uL (0.11-0.59); #Neutrophils 16.7 thou/uL (1.40-6.50); %Basophils 0.1 % (0.0-1.0); %Eosinophils 1.1 % (0.0-10.0); %Lymphocytes 9.9 % (21.0-51.0); %Monocytes 2.4 % (0.0-10.0); %Neutrophils 86.5 % (42.0-75.0); Hemoglobin 9.5 g/dL (12.0-16.0); Mean Corpuscular HGB CONC 32.1 g/dL (32.0-36.0); Mean Corpuscular Hemoglobin 26.9 pg (27.0-31.0); Mean Corpuscular Volume 83.7 fL (78.0-98.0); Mean Platelet Volume 8.3 fL (7.4-10.4); Platelet Count 182 thou/uL (130-400); RBC Distribution Width 13.6 % (11.5-14.5); Red Blood Cell (RBC) Count 3.53 mill/uL (4.20-5.40); White Blood Cell (WBC) Count 19.3 thou/uL (4.8-10.8)
[2021-05-06 06:51] LABS: Anion Gap 12 mmol/L (10-20); BUN (Urea Nitrogen) 17 mg/dL (9.8-20.1); Calc. Creatinine Clearance 109 mL/min (70-130); Calcium 9.7 mg/dL (7.8-10.44); Carbon Dioxide 22 mmol/L (23-31); Chloride 113 mmol/L (98-107); Glucose 175 mg/dL (83-110); Potassium 3.9 mmol/L (3.5-5.1); Sodium 143 mmol/L (136-145)
[2021-05-06] MEDS: Cefepime 2 GM in Sodium Chloride 0.9% 100 ML IVPB SCH ×2 (09:28→21:21)
[2021-05-06] MEDS: levETIRAcetam 500 mg/5 ml Oral Solution PO SCH ×2 (09:31→21:21)
[2021-05-06] MEDS: Senokot S 8.6-50 MG TAB PO SCH ×2 (09:31→21:20)
[2021-05-06] MEDS: Carvedilol 6.25 MG TAB PER TUBE SCH ×2 (09:31→19:32)
[2021-05-06] MEDS: Vancomycin 1.5 GRAM/300 ML BAG 1.5 GM in Premix Bag 1 BAG IVPB SCH (17:43)
[2021-05-06] MEDS: Rosuvastatin 20 MG TAB PER TUBE SCH (21:21)
[2021-05-07 06:55] LABS: Hemoglobin 9.3 g/dL (12.0-16.0); Mean Corpuscular Volume 84.5 fL (78.0-98.0); Mean Platelet Volume 8.6 fL (7.4-10.4); Platelet Count 201 thou/uL (130-400); Red Blood Cell (RBC) Count 3.46 mill/uL (4.20-5.40); White Blood Cell (WBC) Count 14.6 thou/uL (4.8-10.8)
[2021-05-07] MEDS: Senokot S 8.6-50 MG TAB PO SCH ×2 (09:41→21:05)
[2021-05-07] MEDS: Cefepime 2 GM in Sodium Chloride 0.9% 100 ML IVPB SCH ×2 (09:41→21:04)
[2021-05-07] MEDS: Carvedilol 6.25 MG TAB PER TUBE SCH ×2 (09:41→16:20)
[2021-05-07] MEDS: levETIRAcetam 500 mg/5 ml Oral Solution PO SCH ×2 (09:42→21:05)
[2021-05-07] MEDS: Dextrose 5% in Water 1,000 ML IV SCH (09:46)
[2021-05-07 10:46] LABS: #Eosinphils 0.2 thou/uL (0.0-0.7); #Lymphocytes 1.7 thou/uL (1.20-3.40); #Monocytes 0.4 thou/uL (0.11-0.59); #Neutrophils 12.2 thou/uL (1.40-6.50); %Eosinophils 1.6 % (0.0-10.0); %Lymphocytes 11.4 % (21.0-51.0); %Neutrophils 83.9 % (42.0-75.0); Band 10 % (5-11); Eosinophils 5 % (0-10); Lymphocytes 13 % (21-51); MDiff Complete? YES; Monocytes 1 % (0-10); Neutrophil 71 % (42-75); Platelet Morphology Comment Appears Adequate; RBC Morphology Normal
[2021-05-07] MEDS: Vancomycin 1.5 GRAM/300 ML BAG 1.5 GM in Premix Bag 1 BAG IVPB SCH (16:20)
[2021-05-07] MEDS: Rosuvastatin 20 MG TAB PER TUBE SCH (21:05)
[2021-05-08] MEDS: Dextrose 5% in Water 1,000 ML IV SCH (04:13)
[2021-05-08 08:10] LABS: Hemoglobin 9.8 g/dL (12.0-16.0); Mean Corpuscular HGB CONC 31.6 g/dL (32.0-36.0); Mean Corpuscular Hemoglobin 26.9 pg (27.0-31.0); Mean Corpuscular Volume 85.2 fL (78.0-98.0); Mean Platelet Volume 9.7 fL (7.4-10.4); Platelet Count 120 thou/uL (130-400); RBC Distribution Width 14.7 % (11.5-14.5); Red Blood Cell (RBC) Count 3.65 mill/uL (4.20-5.40); White Blood Cell (WBC) Count 13.2 thou/uL (4.8-10.8)
[2021-05-08 09:14] LABS: #Eosinphils 0.2 thou/uL (0.0-0.7); #Lymphocytes 1.5 thou/uL (1.20-3.40); #Monocytes 0.6 thou/uL (0.11-0.59); #Neutrophils 10.9 thou/uL (1.40-6.50); %Basophils 0.1 % (0.0-1.0); %Eosinophils 1.2 % (0.0-10.0); %Lymphocytes 11.4 % (21.0-51.0); %Monocytes 4.6 % (0.0-10.0); %Neutrophils 82.8 % (42.0-75.0); Hypochromia SLIGHT = 6-15 cells (100X) (0-5/hpf); MDiff Complete? YES; Platelet Morphology Comment Appears Decreased; Polychromasia SLIGHT = 2-3 cells (100X) (0-2/hpf)
[2021-05-08] MEDS: levETIRAcetam 500 mg/5 ml Oral Solution PO SCH ×2 (09:19→21:03)
[2021-05-08] MEDS: Carvedilol 6.25 MG TAB PER TUBE SCH ×2 (09:19→16:26)
[2021-05-08] MEDS: Senokot S 8.6-50 MG TAB PO SCH (09:20)
[2021-05-08] MEDS: Cefepime 2 GM in Sodium Chloride 0.9% 100 ML IVPB SCH ×2 (09:20→21:03)
[2021-05-08] MEDS: Vancomycin 1.5 GRAM/300 ML BAG 1.5 GM in Premix Bag 1 BAG IVPB SCH (16:26)
[2021-05-08] MEDS: Acetaminophen 500 MG TAB PO PRN (18:18)
[2021-05-08] MEDS ORDERED: Senokot S 8.6-50 MG TAB PO PRN (18:23)
[2021-05-08] MEDS: Rosuvastatin 20 MG TAB PER TUBE SCH (21:03)
[2021-05-09] MEDS: Dextrose 5% in Water 1,000 ML IV SCH (00:09)
[2021-05-09 07:04] LABS: #Eosinphils 0.2 thou/uL (0.0-0.7); #Lymphocytes 1.3 thou/uL (1.20-3.40); #Monocytes 0.4 thou/uL (0.11-0.59); #Neutrophils 7.8 thou/uL (1.40-6.50); %Basophils 0.1 % (0.0-1.0); %Eosinophils 1.8 % (0.0-10.0); %Lymphocytes 13.5 % (21.0-51.0); %Monocytes 4.2 % (0.0-10.0); %Neutrophils 80.3 % (42.0-75.0); Hemoglobin 9.2 g/dL (12.0-16.0); Mean Corpuscular HGB CONC 31.2 g/dL (32.0-36.0); Mean Corpuscular Hemoglobin 26.4 pg (27.0-31.0); Mean Corpuscular Volume 84.6 fL (78.0-98.0); Mean Platelet Volume 7.7 fL (7.4-10.4); Platelet Count 256 thou/uL (130-400); RBC Distribution Width 14.8 % (11.5-14.5); Red Blood Cell (RBC) Count 3.49 mill/uL (4.20-5.40); White Blood Cell (WBC) Count 9.7 thou/uL (4.8-10.8)
[2021-05-09] MEDS: Carvedilol 6.25 MG TAB PER TUBE SCH ×2 (09:06→17:58)
[2021-05-09] MEDS: levETIRAcetam 500 mg/5 ml Oral Solution PO SCH ×2 (09:10→21:40)
[2021-05-09] MEDS: Cefepime 2 GM in Sodium Chloride 0.9% 100 ML IVPB SCH ×2 (09:10→21:40)
[2021-05-09] MEDS: Vancomycin 1.5 GRAM/300 ML BAG 1.5 GM in Premix Bag 1 BAG IVPB SCH (15:14)
[2021-05-09] MEDS: Rosuvastatin 20 MG TAB PER TUBE SCH (21:40)
[2021-05-10] MEDS: levETIRAcetam 500 mg/5 ml Oral Solution PO SCH ×2 (10:06→21:01)
[2021-05-10] MEDS: Carvedilol 6.25 MG TAB PER TUBE SCH ×2 (10:06→17:22)
[2021-05-10] MEDS: Cefepime 2 GM in Sodium Chloride 0.9% 100 ML IVPB SCH (10:07)
[2021-05-10 15:16] LABS: Vancomycin, Trough 22.1 ug/mL
[2021-05-10] MEDS: Vancomycin 1.5 GRAM/300 ML BAG 1.5 GM in Premix Bag 1 BAG IVPB SCH (17:22)
[2021-05-10] MEDS: Rosuvastatin 20 MG TAB PER TUBE SCH (21:01)
[2021-05-11] MEDS: Acetaminophen 500 MG TAB PO PRN (05:32)
[2021-05-11 07:49] LABS: #Eosinphils 0.2 thou/uL (0.0-0.7); #Lymphocytes 1.4 thou/uL (1.20-3.40); #Monocytes 0.8 thou/uL (0.11-0.59); %Basophils 0.7 % (0.0-1.0); %Eosinophils 2.2 % (0.0-10.0); %Lymphocytes 18.9 % (21.0-51.0); %Monocytes 10.2 % (0.0-10.0); Hemoglobin 9.4 g/dL (12.0-16.0); Mean Corpuscular HGB CONC 31.2 g/dL (32.0-36.0); Mean Corpuscular Hemoglobin 26.3 pg (27.0-31.0); Mean Corpuscular Volume 84.5 fL (78.0-98.0); Mean Platelet Volume 7.8 fL (7.4-10.4); Platelet Count 288 thou/uL (130-400); Red Blood Cell (RBC) Count 3.57 mill/uL (4.20-5.40); White Blood Cell (WBC) Count 7.3 thou/uL (4.8-10.8)
[2021-05-11 08:06] LABS: Anion Gap 7 mmol/L (10-20); BUN (Urea Nitrogen) 14 mg/dL (9.8-20.1); Calc. Creatinine Clearance 114 mL/min (70-130); Calcium 10.3 mg/dL (7.8-10.44); Carbon Dioxide 31 mmol/L (23-31); Chloride 107 mmol/L (98-107); Glucose 136 mg/dL (83-110); Sodium 141 mmol/L (136-145)
[2021-05-11] MEDS: levETIRAcetam 500 mg/5 ml Oral Solution PO SCH (09:18)
[2021-05-11] MEDS: Carvedilol 6.25 MG TAB PER TUBE SCH ×2 (09:18→16:34)
[2021-05-11 16:56] VITALS: BP 141/74; TEMP 98.7
[2021-05-11 18:34] LABS: SARS-CoV-2 PCR by NAA Not Detected (NotDetected)
== END 2021-05-11 17:24 | DRG 871 ==
LOC: ERS 19:02 → ERHOLD 21:43 → T4-B 04-29 15:49
PROVIDERS: ADMIT Student in an Organized Health Care Education/Training Program; ATTEND Internal Medicine
DX: A41.81 Sepsis due to Enterococcus (principal); R65.20 Severe sepsis without septic shock; Z20.822 Contact with and (suspected) exposure to COVID-19; G93.41 Metabolic encephalopathy; I50.33 Acute on chronic diastolic (congestive) heart failure; E87.0 Hyperosmolality and hypernatremia; N39.0 Urinary tract infection, site not specified; N17.9 Acute kidney failure, unspecified; A41.4 Sepsis due to anaerobes; I25.10 Atherosclerotic heart disease of native coronary artery without angina pectoris; E78.5 Hyperlipidemia, unspecified; E83.52 Hypercalcemia; D69.6 Thrombocytopenia, unspecified; E86.0 Dehydration; F03.90 Unspecified dementia, unspecified severity, without behavioral disturbance, psychotic disturbance, mood disturbance, and anxiety; D63.8 Anemia in other chronic diseases classified elsewhere; E86.9 Volume depletion, unspecified; I11.0 Hypertensive heart disease with heart failure; E87.6 Hypokalemia; Z86.73 Personal history of transient ischemic attack (TIA), and cerebral infarction without residual deficits; Z86.16 Personal history of COVID-19; Z86.018 Personal history of other benign neoplasm; Z95.1 Presence of aortocoronary bypass graft; Z74.01 Bed confinement status
CPT/HCPCS: 36415; 36416; 51701; 70450; 71045; 80048; 80053; 80202; 81003; 81015; 83605; 85025; 86140; 87040; 87077; 87086; 87149; 87186; 87324; 87449; 93005; 96365; 96366; 96367; J0630; J0692; J1885; J1940; J3370; J3490; J7050; J7070; U0002; U0003; U0005

== ENCOUNTER 2021-08-16 22:12 | Inpatient (IN) | payer OTHER, MEDICAID ==
[2021-08-16 23:06] LABS: #Eosinphils 0.2 thou/uL (0.0-0.7); #Lymphocytes 1.7 thou/uL (1.20-3.40); #Monocytes 0.8 thou/uL (0.11-0.59); #Neutrophils 4.9 thou/uL (1.40-6.50); %Basophils 0.3 % (0.0-1.0); %Eosinophils 2.3 % (0.0-10.0); %Lymphocytes 22.1 % (21.0-51.0); %Monocytes 10.3 % (0.0-10.0); Hemoglobin 12.3 g/dL (12.0-16.0); Mean Corpuscular HGB CONC 31.4 g/dL (32.0-36.0); Mean Corpuscular Hemoglobin 26.3 pg (27.0-31.0); Mean Platelet Volume 8.2 fL (7.4-10.4); Platelet Count 135 thou/uL (130-400); Red Blood Cell (RBC) Count 4.66 mill/uL (4.20-5.40); White Blood Cell (WBC) Count 7.5 thou/uL (4.8-10.8)
[2021-08-16 23:20] LABS: ALT (SGPT) 24 U/L (8-55); AST (SGOT) 22 U/L (5-34); Albumin 3.8 g/dL (3.4-4.8); Alkaline Phosphatase 147 U/L (40-110); Anion Gap 11 mmol/L (10-20); BUN (Urea Nitrogen) 16 mg/dL (9.8-20.1); Bilirubin, Total 0.3 mg/dL (0.2-1.2); Calc. Creatinine Clearance 0 mL/min (70-130); Carbon Dioxide 27 mmol/L (23-31); Chloride 104 mmol/L (98-107); Globulin 4.9 g/dL (2.4-3.5); Glucose 101 mg/dL (83-110); Potassium 4.1 mmol/L (3.5-5.1); Protein, Total 8.7 g/dL (5.8-8.1); Sodium 138 mmol/L (136-145)
[2021-08-16 23:24] LABS: Calcium 12.9 mg/dL (7.8-10.44)
[2021-08-17 01:44] LABS: Bacteria/HPF 1+ HPF (None Seen); Bilirubin Negative (Negative); Blood, Urine Negative (Negative); Clarity Turbid (Clear); Glucose, Urine (Dipstick) Normal (Negative); Ketone, Urine Negative (Negative); Leukocyte 500 Leu/uL (Negative); Nitrite Negative (Negative); Protein, Urine (Dipstick) 10 mg/dL (Neg-Trace); RBC/HPF 0-3 HPF (0-3); Specific Gravity, Urine 1.014 (1.002-1.036); Squamous Epithelial 0-3 HPF (0-3); Urobilinogen Normal mg/dL (Less than 2); WBC/HPF 21-50 HPF (0-3); pH, Urine 6.5 (5.0-9.0)
[2021-08-17] MEDS ORDERED: Acetaminophen 650 MG Suppository PR PRN (02:56)
[2021-08-17] MEDS ORDERED: Ondansetron PF 4 MG/2 ML Vial IVP PRN (02:56)
[2021-08-17] MEDS ORDERED: Ondansetron ODT 4 MG TAB PO PRN (02:56)
[2021-08-17] MEDS ORDERED: Acetaminophen 325 MG TAB PO PRN (02:56)
[2021-08-17] MEDS ORDERED: Sodium Chloride 0.9% 1,000 ML IV SCH (03:15)
[2021-08-17 04:32] VITALS: BMI 33.6
[2021-08-17] MEDS: cefTRIAXone\\ROCEPHIN 1 GM in Sodium Chloride 0.9% 100 ML IVPB SCH (06:02)
[2021-08-17] MEDS: Enoxaparin Sodium 40 MG/0.4 ML SYRINGE SC SCH (08:57)
[2021-08-17 10:03] LABS: #Eosinphils 0.2 thou/uL (0.0-0.7); #Lymphocytes 1.9 thou/uL (1.20-3.40); #Monocytes 0.9 thou/uL (0.11-0.59); #Neutrophils 4.3 thou/uL (1.40-6.50); %Basophils 0.1 % (0.0-1.0); %Eosinophils 2.3 % (0.0-10.0); %Lymphocytes 25.7 % (21.0-51.0); %Monocytes 12.8 % (0.0-10.0); %Neutrophils 59.1 % (42.0-75.0); Hemoglobin 12.7 g/dL (12.0-16.0); Mean Corpuscular HGB CONC 31.4 g/dL (32.0-36.0); Mean Corpuscular Hemoglobin 26.4 pg (27.0-31.0); Mean Corpuscular Volume 84.2 fL (78.0-98.0); Mean Platelet Volume 8.8 fL (7.4-10.4); Platelet Count 129 thou/uL (130-400); Red Blood Cell (RBC) Count 4.82 mill/uL (4.20-5.40); White Blood Cell (WBC) Count 7.4 thou/uL (4.8-10.8)
[2021-08-17 10:17] LABS: Anion Gap 12 mmol/L (10-20); BUN (Urea Nitrogen) 16 mg/dL (9.8-20.1); Calc. Creatinine Clearance 88 mL/min (70-130); Carbon Dioxide 26 mmol/L (23-31); Chloride 107 mmol/L (98-107); Glucose 72 mg/dL (83-110); Potassium 4.4 mmol/L (3.5-5.1); Sodium 141 mmol/L (136-145)
[2021-08-17 10:21] LABS: Calcium 12.9 mg/dL (7.8-10.44)
[2021-08-17] MEDS ORDERED: Zoledronic Acid 4 MG in Sodium Chloride 0.9% 100 ML IVPB SCH (11:00)
[2021-08-17] MEDS ORDERED: Calcitonin,Synthetic 200 UNITS/ML MDV SC SCH (11:00)
[2021-08-17] MEDS: Sodium Chloride 0.9% 1,000 ML IV SCH ×2 (11:02→18:39)
[2021-08-17 16:07] LABS: SARS-CoV-2 PCR by NAA Not Detected (NotDetected)
[2021-08-17] MEDS ORDERED: hydrALAZINE 20 MG/ML VIAL SLOW IVP PRN (16:24)
[2021-08-17] MEDS ORDERED: levETIRAcetam 500 mg/5 ml Oral Solution PER TUBE SCH ×2 (21:00→21:30)
[2021-08-17] MEDS: Carvedilol 25 MG TAB PER TUBE SCH (22:55)
[2021-08-17] MEDS: Rosuvastatin 20 MG TAB PER TUBE SCH (22:55)
[2021-08-18 01:16] LABS: Troponin I Less than 0.010 ng/mL (< 0.028)
[2021-08-18] MEDS: Sodium Chloride 0.9% 1,000 ML IV SCH (01:27)
[2021-08-18] MEDS ORDERED: Clopidogrel Bisulfate 300 MG TAB PO SCH (02:30)
[2021-08-18] MEDS ORDERED: Aspirin Chewable 81 MG TAB PER TUBE SCH (03:00)
[2021-08-18 05:08] LABS: Hemoglobin 11.4 g/dL (12.0-16.0); Mean Corpuscular HGB CONC 32.4 g/dL (32.0-36.0); Mean Corpuscular Volume 83.3 fL (78.0-98.0); Mean Platelet Volume 8.8 fL (7.4-10.4); Platelet Count 134 thou/uL (130-400); Red Blood Cell (RBC) Count 4.22 mill/uL (4.20-5.40); White Blood Cell (WBC) Count 8.3 thou/uL (4.8-10.8)
[2021-08-18 05:23] LABS: Troponin I Less than 0.010 ng/mL (< 0.028)
[2021-08-18 05:26] LABS: Anion Gap 12 mmol/L (10-20); BUN (Urea Nitrogen) 16 mg/dL (9.8-20.1); Calc. Creatinine Clearance 97 mL/min (70-130); Calcium 10.6 mg/dL (7.8-10.44); Carbon Dioxide 20 mmol/L (23-31); Chloride 109 mmol/L (98-107); Glucose 99 mg/dL (83-110); Potassium 3.6 mmol/L (3.5-5.1); Sodium 137 mmol/L (136-145)
[2021-08-18] MEDS: cefTRIAXone\\ROCEPHIN 1 GM in Sodium Chloride 0.9% 100 ML IVPB SCH (05:30)
[2021-08-18] MEDS ORDERED: Furosemide 20 MG/2 ML VIAL SLOW IVP SCH (09:00)
[2021-08-18] MEDS ORDERED: Clopidogrel Bisulfate 75 MG TAB PO SCH (09:00)
[2021-08-18] MEDS: Carvedilol 25 MG TAB PER TUBE SCH ×2 (09:09→22:02)
[2021-08-18] MEDS: Enoxaparin Sodium 40 MG/0.4 ML SYRINGE SC SCH (09:09)
[2021-08-18] MEDS: Aspirin Chewable 81 MG TAB PER TUBE SCH (09:09)
[2021-08-18] MEDS: levETIRAcetam 500 mg/5 ml Oral Solution PER TUBE SCH ×2 (09:10→22:02)
[2021-08-18] MEDS: Lactated Ringer's 1,000 ML IV SCH ×3 (09:10→23:26)
[2021-08-18] MEDS: Potassium Chloride 20 MEQ TAB PO SCH (17:19)
[2021-08-18] MEDS: Rosuvastatin 20 MG TAB PER TUBE SCH (22:02)
[2021-08-19 05:35] LABS: Anion Gap 9 mmol/L (10-20); BUN (Urea Nitrogen) 14 mg/dL (9.8-20.1); Calc. Creatinine Clearance 103 mL/min (70-130); Calcium 10.1 mg/dL (7.8-10.44); Carbon Dioxide 23 mmol/L (23-31); Chloride 108 mmol/L (98-107); Glucose 86 mg/dL (83-110); Potassium 3.2 mmol/L (3.5-5.1); Sodium 137 mmol/L (136-145)
[2021-08-19] MEDS: cefTRIAXone\\ROCEPHIN 1 GM in Sodium Chloride 0.9% 100 ML IVPB SCH (06:18)
[2021-08-19] MEDS: Potassium Bicarbonate/Cit Ac 20 MEQ TAB PO SCH ×2 (07:49→14:23)
[2021-08-19] MEDS: levETIRAcetam 500 mg/5 ml Oral Solution PER TUBE SCH ×2 (08:42→20:31)
[2021-08-19] MEDS: Enoxaparin Sodium 40 MG/0.4 ML SYRINGE SC SCH (08:42)
[2021-08-19] MEDS: Potassium Chloride 20 MEQ TAB PO SCH ×2 (08:42→17:30)
[2021-08-19] MEDS: Aspirin Chewable 81 MG TAB PER TUBE SCH (08:42)
[2021-08-19] MEDS: Carvedilol 25 MG TAB PER TUBE SCH ×2 (08:42→20:31)
[2021-08-19] MEDS: Cinacalcet HCl 30 MG TAB PO SCH (17:30)
[2021-08-19] MEDS: Rosuvastatin 20 MG TAB PER TUBE SCH (20:31)
[2021-08-20 05:49] LABS: Anion Gap 8 mmol/L (10-20); BUN (Urea Nitrogen) 13 mg/dL (9.8-20.1); Calc. Creatinine Clearance 102 mL/min (70-130); Carbon Dioxide 24 mmol/L (23-31); Chloride 107 mmol/L (98-107); Glucose 88 mg/dL (83-110); Sodium 135 mmol/L (136-145)
[2021-08-20] MEDS: Enoxaparin Sodium 40 MG/0.4 ML SYRINGE SC SCH (09:19)
[2021-08-20] MEDS: levETIRAcetam 500 mg/5 ml Oral Solution PER TUBE SCH (09:19)
[2021-08-20] MEDS: Cinacalcet HCl 30 MG TAB PO SCH (09:19)
[2021-08-20] MEDS: Carvedilol 25 MG TAB PER TUBE SCH (09:20)
[2021-08-20] MEDS: Aspirin Chewable 81 MG TAB PER TUBE SCH (09:20)
[2021-08-20 15:44] VITALS: TEMP 96.8
[2021-08-20 16:18] VITALS: BP 132/76
== END 2021-08-20 16:45 | disposition home health service (06) | DRG 640 ==
LOC: ERS 22:12 → NEURO 08-17 00:46 → OBSVTOIN 08-18 13:23
PROVIDERS: ADMIT Hospitalist; ATTEND Hospitalist
DX: E83.52 Hypercalcemia (principal); G93.41 Metabolic encephalopathy; N39.0 Urinary tract infection, site not specified; E87.2 Acidosis; Z20.822 Contact with and (suspected) exposure to COVID-19; Z23 Encounter for immunization; I10 Essential (primary) hypertension; I25.10 Atherosclerotic heart disease of native coronary artery without angina pectoris; E21.3 Hyperparathyroidism, unspecified; F01.50 Vascular dementia, unspecified severity, without behavioral disturbance, psychotic disturbance, mood disturbance, and anxiety; E86.9 Volume depletion, unspecified; I45.10 Unspecified right bundle-branch block; G40.909 Epilepsy, unspecified, not intractable, without status epilepticus; B96.5 Pseudomonas (aeruginosa) (mallei) (pseudomallei) as the cause of diseases classified elsewhere; E78.5 Hyperlipidemia, unspecified; E87.6 Hypokalemia; R13.12 Dysphagia, oropharyngeal phase; Z95.1 Presence of aortocoronary bypass graft; Z79.899 Other long term (current) drug therapy; I69.991 Dysphagia following unspecified cerebrovascular disease
CPT/HCPCS: 36415; 36416; 51701; 70450; 71045; 80048; 80053; 81003; 81015; 84484; 85025; 85027; 87077; 87086; 87186; 90471; 90732; 93005; 93010; 93306; 96361; 96372; 96374; 96375; 96376; G0009; G0378; J0630; J0696; J1650; J1940; J1956; J3489; J3490; J7050; J7120; U0003; U0005

== ENCOUNTER 2021-09-28 20:30 | Observation (INO) | payer OTHER ==
[2021-09-28] MEDS ORDERED: cefTRIAXone\\ROCEPHIN 2 GM VIAL ONE (21:18)
[2021-09-28 21:25] LABS: #Eosinphils 0.2 thou/uL (0.0-0.7); #Lymphocytes 1.8 thou/uL (1.20-3.40); #Monocytes 0.7 thou/uL (0.11-0.59); #Neutrophils 4.9 thou/uL (1.40-6.50); %Eosinophils 3.2 % (0.0-10.0); %Monocytes 9.5 % (0.0-10.0); %Neutrophils 64.2 % (42.0-75.0); Hemoglobin 12.5 g/dL (12.0-16.0); Mean Corpuscular Hemoglobin 26.4 pg (27.0-31.0); Mean Corpuscular Volume 82.4 fL (78.0-98.0); Mean Platelet Volume 8.3 fL (7.4-10.4); Platelet Count 180 thou/uL (130-400); RBC Distribution Width 14.1 % (11.5-14.5); Red Blood Cell (RBC) Count 4.73 mill/uL (4.20-5.40); White Blood Cell (WBC) Count 7.6 thou/uL (4.8-10.8)
[2021-09-28 21:28] LABS: Bacteria/HPF None Seen HPF (None Seen); Bilirubin Negative (Negative); Blood, Urine Negative (Negative); Clarity Clear (Clear); Glucose, Urine (Dipstick) Normal (Negative); Ketone, Urine Negative (Negative); Leukocyte 250 Leu/uL (Negative); Nitrite Negative (Negative); Protein, Urine (Dipstick) 20 mg/dL (Neg-Trace); RBC/HPF 0-3 HPF (0-3); Specific Gravity, Urine 1.018 (1.002-1.036); Squamous Epithelial None Seen HPF (0-3); Urobilinogen Normal mg/dL (Less than 2)
[2021-09-28 21:48] LABS: ALT (SGPT) 23 U/L (8-55); AST (SGOT) 24 U/L (5-34); Albumin 3.6 g/dL (3.4-4.8); Alkaline Phosphatase 114 U/L (40-110); Anion Gap 11 mmol/L (10-20); BUN (Urea Nitrogen) 21 mg/dL (9.8-20.1); Bilirubin, Total 0.3 mg/dL (0.2-1.2); Calc. Creatinine Clearance 0 mL/min (70-130); Carbon Dioxide 28 mmol/L (23-31); Chloride 101 mmol/L (98-107); Globulin 4.8 g/dL (2.4-3.5); Glucose 96 mg/dL (83-110); Lipase 21 U/L (8-78); Magnesium 2.2 mg/dL (1.6-2.6); Potassium 3.9 mmol/L (3.5-5.1); Protein, Total 8.4 g/dL (5.8-8.1); Sodium 136 mmol/L (136-145)
[2021-09-28 21:50] LABS: Calcium 12.3 mg/dL (7.8-10.44)
[2021-09-28] MEDS ORDERED: Calcitonin,Synthetic 200 UNITS/ML MDV SC SCH (22:15)
[2021-09-28] MEDS ORDERED: Sodium Chloride 0.9% 1,000 ML IV SCH (22:30)
[2021-09-28] MEDS ORDERED: Acetaminophen 325 MG TAB PO PRN (23:09)
[2021-09-28] MEDS ORDERED: Ondansetron PF 4 MG/2 ML Vial IVP PRN (23:09)
[2021-09-28] MEDS ORDERED: Ondansetron ODT 4 MG TAB PO PRN (23:09)
[2021-09-28] MEDS ORDERED: Acetaminophen 650 MG Suppository PR PRN (23:09)
[2021-09-28] MEDS ORDERED: Acetaminophen 500 MG TAB PER TUBE PRN (23:43)
[2021-09-29 00:16] LABS: Troponin I Less than 0.010 ng/mL (< 0.028)
[2021-09-29 01:35] LABS: Troponin I Less than 0.010 ng/mL (< 0.028)
[2021-09-29] MEDS: Sodium Chloride 0.9% 1,000 ML IV SCH ×2 (02:31→10:29)
[2021-09-29 04:38] LABS: #Eosinphils 0.2 thou/uL (0.0-0.7); #Lymphocytes 1.8 thou/uL (1.20-3.40); #Monocytes 0.8 thou/uL (0.11-0.59); #Neutrophils 4.9 thou/uL (1.40-6.50); %Basophils 0.6 % (0.0-1.0); %Eosinophils 2.4 % (0.0-10.0); %Monocytes 9.8 % (0.0-10.0); %Neutrophils 64.1 % (42.0-75.0); Hemoglobin 11.4 g/dL (12.0-16.0); Mean Corpuscular HGB CONC 31.5 g/dL (32.0-36.0); Mean Corpuscular Hemoglobin 26.1 pg (27.0-31.0); Mean Platelet Volume 9.7 fL (7.4-10.4); Platelet Count 172 thou/uL (130-400); RBC Distribution Width 14.3 % (11.5-14.5); Red Blood Cell (RBC) Count 4.37 mill/uL (4.20-5.40); White Blood Cell (WBC) Count 7.7 thou/uL (4.8-10.8)
[2021-09-29 06:20] LABS: Albumin 3.5 g/dL (3.4-4.8)
[2021-09-29 06:21] LABS: Chloride 109 mmol/L (98-107); Potassium 4.7 mmol/L (3.5-5.1); Sodium 140 mmol/L (136-145)
[2021-09-29 06:22] LABS: Calcium 10.7 mg/dL (7.8-10.44)
[2021-09-29 06:23] LABS: Globulin 4.4 g/dL (2.4-3.5); Glucose 78 mg/dL (83-110); Protein, Total 7.9 g/dL (5.8-8.1)
[2021-09-29 06:24] LABS: Anion Gap 10 mmol/L (10-20); Bilirubin, Total 0.2 mg/dL (0.2-1.2); Carbon Dioxide 26 mmol/L (23-31)
[2021-09-29 06:25] LABS: Alkaline Phosphatase 103 U/L (40-110)
[2021-09-29 06:26] LABS: Calc. Creatinine Clearance 0 mL/min (70-130)
[2021-09-29 06:27] LABS: BUN (Urea Nitrogen) 17 mg/dL (9.8-20.1)
[2021-09-29 06:28] LABS: AST (SGOT) 21 U/L (5-34)
[2021-09-29 06:29] LABS: ALT (SGPT) 17 U/L (8-55)
[2021-09-29] MEDS ORDERED: Cinacalcet HCl 30 MG TAB PER TUBE SCH (09:00)
[2021-09-29] MEDS ORDERED: GUAIFENESIN SF SOLN 200 MG/10 ML UDCUP PER TUBE SCH (09:00)
[2021-09-29] MEDS ORDERED: Artificial Tear Sol 15 ML BOT EA EYE SCH (09:00)
[2021-09-29] MEDS ORDERED: metroNIDAZOLE 500 MG TAB PO SCH (09:00)
[2021-09-29] MEDS ORDERED: Potassium Chloride 20 MEQ TAB PER TUBE SCH (09:00)
[2021-09-29] MEDS ORDERED: Enoxaparin Sodium 40 MG/0.4 ML SYRINGE SC SCH (09:00)
[2021-09-29] MEDS ORDERED: levETIRAcetam 500 mg/5 ml Oral Solution PER TUBE SCH (09:00)
[2021-09-29] MEDS ORDERED: Carvedilol 25 MG TAB PER TUBE SCH (09:00)
[2021-09-29] MEDS ORDERED: Fluconazole 100 MG TAB PO SCH (10:00)
[2021-09-29] MEDS: Nystatin 500,000 UNITS/5 ML UDCUP SSP SCH ×2 (10:23→14:13)
[2021-09-29 15:01] VITALS: BMI 31.3
[2021-09-29 16:59] VITALS: BP 156/70; TEMP 98.3
[2021-09-29] MEDS ORDERED: Rosuvastatin 20 MG TAB PER TUBE SCH (21:00)
== END 2021-09-29 17:14 ==
LOC: ERS 20:30 → INTOOBSV 22:23 → ERHOLD 22:23 → 2NO 09-29 08:37
PROVIDERS: ADMIT Family Medicine; ATTEND Family Medicine
DX: R40.0 Somnolence (principal); B37.3 Candidiasis of vulva and vagina; N76.0 Acute vaginitis; D35.1 Benign neoplasm of parathyroid gland; E21.3 Hyperparathyroidism, unspecified; B37.0 Candidal stomatitis; I11.0 Hypertensive heart disease with heart failure; I50.30 Unspecified diastolic (congestive) heart failure; K75.9 Inflammatory liver disease, unspecified; E78.5 Hyperlipidemia, unspecified; F03.90 Unspecified dementia, unspecified severity, without behavioral disturbance, psychotic disturbance, mood disturbance, and anxiety; I25.10 Atherosclerotic heart disease of native coronary artery without angina pectoris; I69.120 Aphasia following nontraumatic intracerebral hemorrhage; I69.191 Dysphagia following nontraumatic intracerebral hemorrhage; R13.10 Dysphagia, unspecified; I69 Sequelae of cerebrovascular disease; I08.2 Rheumatic disorders of both aortic and tricuspid valves; E46 Unspecified protein-calorie malnutrition; Z68.31 Body mass index [BMI] 31.0-31.9, adult; Z86.16 Personal history of COVID-19; Z86.718 Personal history of other venous thrombosis and embolism; Z87.19 Personal history of other diseases of the digestive system; Z79.899 Other long term (current) drug therapy; Z93.1 Gastrostomy status; Z95.1 Presence of aortocoronary bypass graft; Z20.822 Contact with and (suspected) exposure to COVID-19
CPT/HCPCS: 70450; 71045; 80053; 83605; 83690; 83735; 83880; 84145; 84484 ×3; 85025; 87040; 87077; 87086; 87186; 87480; 87510; 87660; 93005; 96372; 97139 ×2; G0378 ×2; U0003; U0005; 36415; 81003; 81015; 84443; 96361; 96374; J0630; J0696; J1650; J7050

== ENCOUNTER 2021-12-25 03:32 | Inpatient (IN) | payer OTHER ==
[2021-12-25 04:35] LABS: Hemoglobin 12.3 g/dL (12.0-16.0); Mean Corpuscular HGB CONC 32.1 g/dL (32.0-36.0); Mean Corpuscular Hemoglobin 26.5 pg (27.0-31.0); Mean Corpuscular Volume 82.4 fL (78.0-98.0); RBC Distribution Width 13.5 % (11.5-14.5); Red Blood Cell (RBC) Count 4.63 mill/uL (4.20-5.40); White Blood Cell (WBC) Count 8.9 thou/uL (4.8-10.8)
[2021-12-25 04:48] LABS: ALT (SGPT) 24 U/L (8-55); AST (SGOT) 24 U/L (5-34); Albumin 3.5 g/dL (3.4-4.8); Alkaline Phosphatase 93 U/L (40-110); Anion Gap 17 mmol/L (10-20); BUN (Urea Nitrogen) 16 mg/dL (9.8-20.1); Bilirubin, Total 0.3 mg/dL (0.2-1.2); Calc. Creatinine Clearance 0 mL/min (70-130); Calcium 10.4 mg/dL (7.8-10.44); Carbon Dioxide 23 mmol/L (23-31); Chloride 103 mmol/L (98-107); Estimated GFR 78; Globulin 4.4 g/dL (2.4-3.5); Glucose 89 mg/dL (83-110); Potassium 4.6 mmol/L (3.5-5.1); Protein, Total 7.9 g/dL (5.8-8.1); Sodium 138 mmol/L (136-145)
[2021-12-25 04:51] LABS: #Eosinphils 0.2 thou/uL (0.0-0.7); #Lymphocytes 1.9 thou/uL (1.20-3.40); #Monocytes 1.1 thou/uL (0.11-0.59); #Neutrophils 5.7 thou/uL (1.40-6.50); %Basophils 0.1 % (0.0-1.0); %Eosinophils 2.1 % (0.0-10.0); %Lymphocytes 21.9 % (21.0-51.0); %Monocytes 12.3 % (0.0-10.0); %Neutrophils 63.7 % (42.0-75.0); Mean Platelet Volume 8.5 fL (7.4-10.4); Platelet Count 115 thou/uL (130-400); Platelet Morphology Comment Appears Decreased
[2021-12-25 05:33] LABS: Bacteria/HPF 1+ HPF (None Seen); Bilirubin Negative (Negative); Blood, Urine Negative (Negative); Clarity Clear (Clear); Glucose, Urine (Dipstick) Normal (Negative); Ketone, Urine Negative (Negative); Leukocyte 500 Leu/uL (Negative); Nitrite Negative (Negative); Protein, Urine (Dipstick) 20 mg/dL (Neg-Trace); RBC/HPF 0-3 HPF (0-3); Specific Gravity, Urine 1.015 (1.002-1.036); Squamous Epithelial None Seen HPF (0-3); Urobilinogen Normal mg/dL (Less than 2); pH, Urine 6.5 (5.0-9.0)
[2021-12-25] MEDS ORDERED: cefTRIAXone\\ROCEPHIN 2 GM VIAL ONE (06:40)
[2021-12-25 07:35] LABS: Lactic Acid 1.3 mmol/L (0.5-2.2)
[2021-12-25] MEDS ORDERED: Ondansetron ODT 4 MG TAB PO PRN (09:17)
[2021-12-25] MEDS ORDERED: Benzonatate 100 MG CAP PO PRN (09:17)
[2021-12-25] MEDS ORDERED: hydrALAZINE 20 MG/ML VIAL SLOW IVP PRN (09:17)
[2021-12-25] MEDS ORDERED: Acetaminophen 325 MG TAB PO PRN (09:17)
[2021-12-25] MEDS: Lactated Ringer's 1,000 ML IV SCH (11:54)
[2021-12-25] MEDS: Azithromycin 500 MG in Sodium Chloride 0.9% 250 ML 250 ML IVPB SCH (14:42)
[2021-12-25] MEDS: Erythromycin Base 0.5% Oint 1 GM TUBE EA EYE SCH (20:54)
[2021-12-25 21:56] LABS: SARS-CoV-2 NAA Rapid Test Not Detected (NotDetected)
[2021-12-26] MEDS: Lactated Ringer's 1,000 ML IV SCH ×2 (02:07→15:58)
[2021-12-26] MEDS: cefTRIAXone\\ROCEPHIN 1 GM in Sodium Chloride 0.9% 100 ML IVPB SCH (05:16)
[2021-12-26 05:40] LABS: #Eosinphils 0.2 thou/uL (0.0-0.7); #Lymphocytes 1.8 thou/uL (1.20-3.40); #Monocytes 1.1 thou/uL (0.11-0.59); #Neutrophils 4.5 thou/uL (1.40-6.50); %Basophils 0.1 % (0.0-1.0); %Eosinophils 2.6 % (0.0-10.0); %Lymphocytes 23.7 % (21.0-51.0); %Monocytes 13.8 % (0.0-10.0); %Neutrophils 59.8 % (42.0-75.0); Mean Corpuscular HGB CONC 31.8 g/dL (32.0-36.0); Mean Corpuscular Hemoglobin 26.2 pg (27.0-31.0); Mean Corpuscular Volume 82.4 fL (78.0-98.0); Mean Platelet Volume 8.3 fL (7.4-10.4); Platelet Count 139 thou/uL (130-400); RBC Distribution Width 13.5 % (11.5-14.5); Red Blood Cell (RBC) Count 4.21 mill/uL (4.20-5.40); White Blood Cell (WBC) Count 7.6 thou/uL (4.8-10.8)
[2021-12-26 05:59] LABS: Anion Gap 13 mmol/L (10-20); BUN (Urea Nitrogen) 13 mg/dL (9.8-20.1); Calc. Creatinine Clearance 91 mL/min (70-130); Calcium 10.1 mg/dL (7.8-10.44); Carbon Dioxide 24 mmol/L (23-31); Chloride 105 mmol/L (98-107); Estimated GFR 88; Glucose 72 mg/dL (83-110); Potassium 3.8 mmol/L (3.5-5.1); Sodium 138 mmol/L (136-145)
[2021-12-26] MEDS: Erythromycin Base 0.5% Oint 1 GM TUBE EA EYE SCH ×2 (08:56→21:50)
[2021-12-26] MEDS: Enoxaparin Sodium 40 MG/0.4 ML SYRINGE SC SCH (08:56)
[2021-12-26 09:24] VITALS: BMI 34.0
[2021-12-26] MEDS: Azithromycin 500 MG in Sodium Chloride 0.9% 250 ML 250 ML IVPB SCH (09:57)
[2021-12-27] MEDS: Lactated Ringer's 1,000 ML IV SCH (05:55)
[2021-12-27] MEDS: cefTRIAXone\\ROCEPHIN 1 GM in Sodium Chloride 0.9% 100 ML IVPB SCH (05:56)
[2021-12-27] MEDS: Enoxaparin Sodium 40 MG/0.4 ML SYRINGE SC SCH (09:52)
[2021-12-27] MEDS: Erythromycin Base 0.5% Oint 1 GM TUBE EA EYE SCH ×2 (09:52→21:57)
[2021-12-27] MEDS: Saccharomyces boulardii 250 MG CAP PER TUBE SCH (09:53)
[2021-12-27] MEDS: Azithromycin 500 MG in Sodium Chloride 0.9% 250 ML 250 ML IVPB SCH (09:53)
[2021-12-27] MEDS: Cinacalcet HCl 30 MG TAB PO SCH (18:38)
[2021-12-27] MEDS ORDERED: Rosuvastatin 20 MG TAB PER TUBE SCH (21:00)
[2021-12-27] MEDS: Carvedilol 6.25 MG TAB PER TUBE SCH (21:41)
[2021-12-27] MEDS: Doxycycline 100 MG CAP PO SCH (21:41)
[2021-12-27] MEDS: levETIRAcetam 500 mg/5 ml Oral Solution PER TUBE SCH (21:42)
[2021-12-27] MEDS: Artificial Tear Sol 15 ML BOT EA EYE SCH (21:56)
[2021-12-28 05:35] LABS: #Eosinphils 0.2 thou/uL (0.0-0.7); #Lymphocytes 1.8 thou/uL (1.20-3.40); #Monocytes 0.8 thou/uL (0.11-0.59); %Basophils 0.4 % (0.0-1.0); %Eosinophils 2.3 % (0.0-10.0); %Lymphocytes 22.9 % (21.0-51.0); %Monocytes 10.7 % (0.0-10.0); %Neutrophils 63.8 % (42.0-75.0); Hemoglobin 12.1 g/dL (12.0-16.0); Mean Corpuscular HGB CONC 31.4 g/dL (32.0-36.0); Mean Corpuscular Hemoglobin 26.4 pg (27.0-31.0); Mean Corpuscular Volume 84.2 fL (78.0-98.0); Mean Platelet Volume 8.3 fL (7.4-10.4); Platelet Count 136 thou/uL (130-400); RBC Distribution Width 13.6 % (11.5-14.5); Red Blood Cell (RBC) Count 4.59 mill/uL (4.20-5.40); White Blood Cell (WBC) Count 7.8 thou/uL (4.8-10.8)
[2021-12-28 05:55] LABS: Anion Gap 12 mmol/L (10-20); BUN (Urea Nitrogen) 8 mg/dL (9.8-20.1); Calc. Creatinine Clearance 98 mL/min (70-130); Calcium 9.1 mg/dL (7.8-10.44); Carbon Dioxide 23 mmol/L (23-31); Chloride 106 mmol/L (98-107); Estimated GFR 90; Glucose 80 mg/dL (83-110); Potassium 3.5 mmol/L (3.5-5.1); Sodium 137 mmol/L (136-145)
[2021-12-28 08:02] VITALS: TEMP 98.2
[2021-12-28] MEDS ORDERED: Ciprofloxacin 500 MG TAB PO SCH ×2 (08:15→20:00)
[2021-12-28] MEDS: Lactated Ringer's 1,000 ML IV SCH ×2 (10:10→17:10)
[2021-12-28] MEDS: Enoxaparin Sodium 40 MG/0.4 ML SYRINGE SC SCH (10:10)
[2021-12-28] MEDS: Cinacalcet HCl 30 MG TAB PO SCH (10:11)
[2021-12-28] MEDS: Carvedilol 6.25 MG TAB PER TUBE SCH (10:12)
[2021-12-28] MEDS: Doxycycline 100 MG CAP PO SCH (10:15)
[2021-12-28] MEDS: levETIRAcetam 500 mg/5 ml Oral Solution PER TUBE SCH (10:15)
[2021-12-28] MEDS: Saccharomyces boulardii 250 MG CAP PER TUBE SCH (10:15)
[2021-12-28] MEDS: Erythromycin Base 0.5% Oint 1 GM TUBE EA EYE SCH (10:16)
[2021-12-28] MEDS: Artificial Tear Sol 15 ML BOT EA EYE SCH (10:16)
[2021-12-28 12:46] VITALS: BP 140/82
== END 2021-12-28 16:20 | DRG 193 ==
LOC: ERS 03:32 → SJJU 09:29
PROVIDERS: ADMIT Internal Medicine; ATTEND Internal Medicine
DX: J18.9 Pneumonia, unspecified organism (principal); G93.41 Metabolic encephalopathy; N39.0 Urinary tract infection, site not specified; E87.2 Acidosis; Z20.822 Contact with and (suspected) exposure to COVID-19; F03.90 Unspecified dementia, unspecified severity, without behavioral disturbance, psychotic disturbance, mood disturbance, and anxiety; I25.10 Atherosclerotic heart disease of native coronary artery without angina pectoris; E78.5 Hyperlipidemia, unspecified; I10 Essential (primary) hypertension; H10.9 Unspecified conjunctivitis; B96.5 Pseudomonas (aeruginosa) (mallei) (pseudomallei) as the cause of diseases classified elsewhere; Z79.899 Other long term (current) drug therapy; Z86.73 Personal history of transient ischemic attack (TIA), and cerebral infarction without residual deficits
CPT/HCPCS: 36415; 51701; 70450; 71045; 80048; 80053; 81003; 81015; 83605; 84484; 85025; 87040; 87077; 87086; 87186; 93005; 96361; 96365; J0456; J0696; J0744; J1650; J3490; J7050; J7120; U0002

== ENCOUNTER 2022-08-05 07:45 | Day surgery (SDC) | payer OTHER, MEDICAID ==
[2022-08-04 15:35] VITALS: BMI 35.1
[2022-08-05] MEDS ORDERED: Lidocaine 1% PF 5 ML VIAL ONE (09:26)
[2022-08-05] MEDS ORDERED: PROPOFOL 200 MG/20 ML VIAL ONE (09:26)
[2022-08-05] MEDS ORDERED: Ondansetron PF 4 MG/2 ML Vial ONE (09:26)
== END 2022-08-05 10:58 | disposition home or self-care (01) ==
LOC: SDC 07:45
PROVIDERS: ATTEND Internal Medicine Gastroenterology
PROC: 0DJ08ZZ Inspection of Upper Intestinal Tract, Via Natural or Artificial Opening Endoscopic (ICD-10-PCS; principal; 2022-08-05)
DX: R93.3 Abnormal findings on diagnostic imaging of other parts of digestive tract (principal); K44.9 Diaphragmatic hernia without obstruction or gangrene; K21.9 Gastro-esophageal reflux disease without esophagitis; I10 Essential (primary) hypertension; Z86.73 Personal history of transient ischemic attack (TIA), and cerebral infarction without residual deficits; Z79.899 Other long term (current) drug therapy; Z88.1 Allergy status to other antibiotic agents; Z93.1 Gastrostomy status

== ENCOUNTER 2022-12-19 11:33 | Emergency (ER) | payer OTHER, MEDICAID ==
[~2022-12-19 11:33] MED LIST: Iopamidol-370 76% 500 ML MDV (1 ML CHARGE) ONE
[2022-12-19 12:36] LABS: #Eosinphils 0.4 thou/uL (0.0-0.7); #Monocytes 0.9 thou/uL (0.11-0.59); #Neutrophils 5.5 thou/uL (1.40-6.50); %Basophils 0.3 % (0.0-1.0); %Eosinophils 4.6 % (0.0-10.0); %Lymphocytes 22.6 % (21.0-51.0); %Monocytes 10.2 % (0.0-10.0); %Neutrophils 62.2 % (42.0-75.0); Hematocrit 36.2 % (36.0-47.0); Hemoglobin 11.6 g/dL (12.0-16.0); Mean Corpuscular Hemoglobin 26.8 pg (27.0-31.0); Mean Corpuscular Volume 83.6 fl (78.0-98.0); Mean Platelet Volume 10.8 fL (7.4-10.4); Platelet Count 156 10x3/uL (130-400); RBC Distribution Width 13.7 % (11.5-14.5); Red Blood Cell (RBC) Count 4.33 mill/uL (4.20-5.40); White Blood Cell (WBC) Count 8.8 10x3/uL (4.8-10.8)
[2022-12-19 13:00] LABS: ALT (SGPT) 102 U/L (8-55); AST (SGOT) 111 U/L (5-34); Albumin 3.6 g/dL (3.4-4.8); Alkaline Phosphatase 85 U/L (40-110); Anion Gap 13 mmol/L (10-20); BUN (Urea Nitrogen) 20 mg/dL (9.8-20.1); Bilirubin, Total 0.2 mg/dL (0.2-1.2); Calc. Creatinine Clearance 0 mL/min (70-130); Calcium 10.4 mg/dL (7.8-10.44); Carbon Dioxide 26 mmol/L (23-31); Chloride 104 mmol/L (98-107); Estimated GFR 72; Globulin 4.3 g/dL (2.4-3.5); Glucose 89 mg/dL (83-110); Lipase 23 U/L (8-78); Potassium 5.7 mmol/L (3.5-5.1); Protein, Total 7.9 g/dL (5.8-8.1); Sodium 137 mmol/L (136-145)
[2022-12-19 13:08] LABS: Bacteria/HPF 4+ HPF (None Seen); Bilirubin Negative (Negative); Blood, Urine Negative (Negative); CAUTI Indications for Culture Dysuria,urgency,freq; Clarity Clear (Clear); Glucose, Urine (Dipstick) Normal (Negative); Ketone, Urine Negative (Negative); Leukocyte 500 Leu/uL (Negative); Nitrite 2+ (Negative); Protein, Urine (Dipstick) 10 mg/dL (Neg-Trace); RBC/HPF 0-3 HPF (0-3); Renal Epithelial 0-3 HPF (None Seen); Specific Gravity, Urine 1.015 (1.002-1.036); Squamous Epithelial 0-3 HPF (0-3); Urobilinogen Normal mg/dL (Less than 2); WBC/HPF 21-50 HPF (0-3)
[2022-12-19 13:12] LABS: Urine Culture Reflex Yes Yes
[2022-12-19] MEDS ORDERED: cefTRIAXone (ROCEPHIN) 2 GM VIAL ONE (14:23)
== END 2022-12-19 20:24 ==
LOC: ERS 11:33
DX: N39.0 Urinary tract infection, site not specified (principal); K94.23 Gastrostomy malfunction; I10 Essential (primary) hypertension
CPT/HCPCS: 36415; 51701; 74177; 80053; 81001; 83605; 83690; 85025; 87077; 87086; 87186; 93005; 96365; J0696; Q9967

== ENCOUNTER 2023-07-08 01:10 | Emergency (ER) | payer OTHER, MEDICAID | END 2023-07-08 04:09 | LOC: ERS 01:10 | DX: K94.23 Gastrostomy malfunction (principal); I10 Essential (primary) hypertension | CPT/HCPCS: 43753; 74018 ==

== ENCOUNTER 2024-01-26 06:37 | Inpatient (IN) | payer OTHER ==
[2024-01-26 07:30] LABS: #Basophils Less than 0.03 10x3/uL (0.0-0.2); %Basophils 0.2 % (0.0-1.0); %Eosinophils 1.3 % (0.0-10.0); %Lymphocytes 18.5 % (21.0-51.0); %Monocytes 8.3 % (0.0-10.0); %Neutrophils 71.4 % (42.0-75.0); Hematocrit 40.3 % (36.0-47.0); Hemoglobin 12.6 g/dL (12.0-16.0); Mean Corpuscular HGB CONC 31.3 g/dL (32.0-36.0); Mean Corpuscular Hemoglobin 25.8 pg (27.0-31.0); Mean Corpuscular Volume 82.4 fL (78.0-98.0); Mean Platelet Volume 11.1 fL (7.4-10.4); Platelet Count 133 10x3/uL (130-400); RBC Distribution Width 14.3 % (11.5-14.5); Red Blood Cell (RBC) Count 4.89 mill/uL (4.20-5.40)
[2024-01-26 07:42] LABS: Bacteria/HPF 4+ HPF (None Seen); Bilirubin Negative (Negative); Blood, Urine 2+ (Negative); CAUTI Indications for Culture Fever or rigors; Clarity Turbid (Clear); Glucose, Urine (Dipstick) Normal (Negative); Ketone, Urine Negative (Negative); Leukocyte 500 Leu/uL (Negative); Nitrite Negative (Negative); Protein, Urine (Dipstick) 30 mg/dL (Neg-Trace); RBC/HPF 21-50 HPF (0-3); Specific Gravity, Urine 1.017 (1.002-1.036); WBC/HPF Greater than 50 HPF (0-3); pH, Urine 6.5 (5.0-9.0)
[2024-01-26 07:43] LABS: Urine Culture Reflex Yes Yes
[2024-01-26] MEDS ORDERED: Ketorolac Tromethamine 30 MG (1 mL) VIAL ONE ×2 (07:57→11:54)
[2024-01-26] MEDS ORDERED: cefTRIAXone (ROCEPHIN) 2 GM VIAL ONE (07:58)
[2024-01-26] MEDS ORDERED: Sodium Chloride 0.9% 100 ML ONE (07:58)
[2024-01-26 08:25] LABS: ALT (SGPT) 35 U/L (8-55); AST (SGOT) 43 U/L (5-34); Alkaline Phosphatase 83 U/L (40-110); Anion Gap 13 mmol/L (10-20); BUN (Urea Nitrogen) 35 mg/dL (9.8-20.1); Bilirubin, Total 0.3 mg/dL (0.2-1.2); Calc. Creatinine Clearance 0 mL/min (70-130); Calcium 9.5 mg/dL (7.8-10.44); Carbon Dioxide 28 mmol/L (23-31); Chloride 114 mmol/L (98-107); Estimated GFR 67; Globulin 4.6 g/dL (2.4-3.5); Glucose 103 mg/dL (83-110); Potassium 4.4 mmol/L (3.5-5.1); Protein, Total 7.6 g/dL (5.8-8.1); Sodium 151 mmol/L (136-145)
[2024-01-26] MEDS ORDERED: Iopamidol-370 76% 500 ML MDV (1 ML CHARGE) ONE (10:56)
[2024-01-26] MEDS ORDERED: Acetaminophen 500 MG TAB PER TUBE PRN (12:00)
[2024-01-26] MEDS ORDERED: Bisacodyl 5 MG TAB PO PRN (12:02)
[2024-01-26] MEDS ORDERED: Ondansetron PF 4 MG/2 ML Vial IVP PRN (12:02)
[2024-01-26] MEDS ORDERED: Senokot S 8.6-50 MG TAB PO PRN (12:02)
[2024-01-26] MEDS ORDERED: Ondansetron ODT 4 MG TAB PO PRN (12:02)
[2024-01-26] MEDS ORDERED: Acetaminophen 650 MG Suppository PR PRN (12:02)
[2024-01-26 14:08] VITALS: BMI 30.1
[2024-01-26] MEDS: Dextrose 5% in Water 1,000 ML IV SCH (17:52)
[2024-01-26 18:15] LABS: Anion Gap 9 mmol/L (10-20); BUN (Urea Nitrogen) 34 mg/dL (9.8-20.1); Calc. Creatinine Clearance 67 mL/min (70-130); Calcium 8.8 mg/dL (7.8-10.44); Carbon Dioxide 27 mmol/L (23-31); Chloride 117 mmol/L (98-107); Estimated GFR 69; Glucose 100 mg/dL (83-110); Potassium 3.6 mmol/L (3.5-5.1); Sodium 149 mmol/L (136-145)
[2024-01-26] MEDS: Potassium Chloride 20 MEQ in Premix 1 BAG IVPB SCH (19:52)
[2024-01-26] MEDS: Heparin 5,000 UNITS/ML VIAL SC SCH (19:55)
[2024-01-26] MEDS: Chlorhexidine Gluconate 15 ML UDCUP SSP SCH (19:55)
[2024-01-26] MEDS: levETIRAcetam 500 MG (5 mL) VIAL SLOW IVP SCH (19:55)
[2024-01-26] MEDS: Famotidine/PF 20 mg/2ml Vial SLOW IVP SCH (19:55)
[2024-01-26] MEDS ORDERED: levETIRAcetam 500 mg/5 ml Oral Solution PER TUBE SCH (21:00)
[2024-01-26 23:38] LABS: Anion Gap 10 mmol/L (10-20); BUN (Urea Nitrogen) 32 mg/dL (9.8-20.1); Calc. Creatinine Clearance 72 mL/min (70-130); Calcium 8.8 mg/dL (7.8-10.44); Carbon Dioxide 25 mmol/L (23-31); Chloride 117 mmol/L (98-107); Estimated GFR 75; Glucose 92 mg/dL (83-110); Potassium 4.1 mmol/L (3.5-5.1); Sodium 148 mmol/L (136-145)
[2024-01-27 06:01] LABS: Anion Gap 11 mmol/L (10-20); BUN (Urea Nitrogen) 27 mg/dL (9.8-20.1); Calc. Creatinine Clearance 72 mL/min (70-130); Calcium 8.3 mg/dL (7.8-10.44); Carbon Dioxide 24 mmol/L (23-31); Chloride 114 mmol/L (98-107); Estimated GFR 75; Glucose 78 mg/dL (83-110); Potassium 3.5 mmol/L (3.5-5.1); Sodium 145 mmol/L (136-145)
[2024-01-27 06:52] LABS: #Basophils Less than 0.03 10x3/uL (0.0-0.2); %Basophils 0.2 % (0.0-1.0); %Eosinophils 2.6 % (0.0-10.0); %Lymphocytes 18.5 % (21.0-51.0); %Monocytes 9.4 % (0.0-10.0); %Neutrophils 69.1 % (42.0-75.0); Hematocrit 37.7 % (36.0-47.0); Hemoglobin 11.9 g/dL (12.0-16.0); Mean Corpuscular HGB CONC 31.6 g/dL (32.0-36.0); Mean Corpuscular Hemoglobin 26.1 pg (27.0-31.0); Mean Corpuscular Volume 82.7 fL (78.0-98.0); Platelet Count 97 10x3/uL (130-400); RBC Distribution Width 14.2 % (11.5-14.5); Red Blood Cell (RBC) Count 4.56 mill/uL (4.20-5.40)
[2024-01-27] MEDS: FLU (Fluad Triv) TS24-25 (65UP)/MF59C/PF 45 MCG/0.5 ML Syringe IM ONE (07:21)
[2024-01-27] MEDS: cefTRIAXone\\ROCEPHIN 1 GM in Sodium Chloride 0.9% 100 ML IVPB SCH (08:06)
[2024-01-27] MEDS ORDERED: Lidocaine 2% 6 ML (Jelly) SYR ONE (08:08)
[2024-01-27] MEDS ORDERED: MD-Gastroview 120 ML BOT ONE ×2 (08:11→08:13)
[2024-01-27] MEDS ORDERED: Sodium Chloride 0.9% 500 ML ONE (08:13)
[2024-01-27] MEDS ORDERED: Famotidine 20 MG TAB PO SCH (09:00)
[2024-01-27 10:59] VITALS: BMI 30.1
[2024-01-27] MEDS: Carvedilol 25 MG TAB PER TUBE SCH (20:11)
[2024-01-27] MEDS: Cinacalcet HCl 30 MG TAB PER TUBE SCH (20:11)
[2024-01-27] MEDS: Rosuvastatin 20 MG TAB PER TUBE SCH (20:11)
[2024-01-28 04:54] LABS: Anion Gap 12 mmol/L (10-20); BUN (Urea Nitrogen) 20 mg/dL (9.8-20.1); Calc. Creatinine Clearance 78 mL/min (70-130); Calcium 8.5 mg/dL (7.8-10.44); Carbon Dioxide 22 mmol/L (23-31); Chloride 111 mmol/L (98-107); Estimated GFR 83; Glucose 69 mg/dL (83-110); Potassium 3.9 mmol/L (3.5-5.1); Sodium 141 mmol/L (136-145)
[2024-01-28 05:02] LABS: #Basophils Less than 0.03 10x3/uL (0.0-0.2); %Basophils 0.2 % (0.0-1.0); %Eosinophils 3.7 % (0.0-10.0); %Lymphocytes 17.7 % (21.0-51.0); %Monocytes 6.6 % (0.0-10.0); %Neutrophils 71.6 % (42.0-75.0); Hematocrit 38.9 % (36.0-47.0); Mean Corpuscular HGB CONC 30.8 g/dL (32.0-36.0); Mean Corpuscular Hemoglobin 25.8 pg (27.0-31.0); Mean Corpuscular Volume 83.5 fL (78.0-98.0); Mean Platelet Volume 11.4 fL (7.4-10.4); Platelet Count 122 10x3/uL (130-400); RBC Distribution Width 13.8 % (11.5-14.5); Red Blood Cell (RBC) Count 4.66 mill/uL (4.20-5.40)
[2024-01-28] MEDS: Potassium Bicarbonate/Cit Ac 20 MEQ TAB PER TUBE SCH (09:22)
[2024-01-28] MEDS: Famotidine 20 MG TAB PO SCH (22:06)
[2024-01-29 04:19] VITALS: BP 103/68
[2024-01-29 07:36] VITALS: TEMP 98.1
== END 2024-01-29 10:31 | DRG 393 ==
LOC: ERS 06:37 → SURG A 12:11
PROVIDERS: ADMIT Internal Medicine; ATTEND Internal Medicine
PROC: 0D20XUZ Change Feeding Device in Upper Intestinal Tract, External Approach (ICD-10-PCS; principal; 2024-01-27)
DX: K94.23 Gastrostomy malfunction (principal); A41.9 Sepsis, unspecified organism; E87.0 Hyperosmolality and hypernatremia; N39.0 Urinary tract infection, site not specified; I50.22 Chronic systolic (congestive) heart failure; F03.93 Unspecified dementia, unspecified severity, with mood disturbance; I11.0 Hypertensive heart disease with heart failure; F03.90 Unspecified dementia, unspecified severity, without behavioral disturbance, psychotic disturbance, mood disturbance, and anxiety; I25.10 Atherosclerotic heart disease of native coronary artery without angina pectoris; I69.320 Aphasia following cerebral infarction; I69.391 Dysphagia following cerebral infarction; R13.10 Dysphagia, unspecified; F32.A Depression, unspecified; E87.8 Other disorders of electrolyte and fluid balance, not elsewhere classified; K21.9 Gastro-esophageal reflux disease without esophagitis; Z95.1 Presence of aortocoronary bypass graft; Z90.49 Acquired absence of other specified parts of digestive tract; Z86.718 Personal history of other venous thrombosis and embolism; Z88.1 Allergy status to other antibiotic agents; Z79.899 Other long term (current) drug therapy; R59.0 Localized enlarged lymph nodes
CPT/HCPCS: 36415; 44500; 51701; 71045; 74177; 80048; 80053; 81001; 83605; 84145; 85025; 87040; 87077; 87086; 87186; 93005; 96365; 96366; 96375; 96376; C1725; C1769; J0696; J1644; J1885; J1953; J3480; J3490; J7030; J7070; Q9963; Q9967

== ENCOUNTER 2024-03-13 15:56 | Emergency (ER) | payer OTHER | END 2024-03-13 18:46 | disposition home or self-care (01) | LOC: ERS 15:56 | DX: K94.23 Gastrostomy malfunction (principal); I10 Essential (primary) hypertension; E78.5 Hyperlipidemia, unspecified; Z79.899 Other long term (current) drug therapy | CPT/HCPCS: 43762; 74018 ==

== ENCOUNTER 2024-04-30 21:18 | Observation (INO) | payer OTHER ==
[2024-04-30 22:12] LABS: #Basophils Less than 0.03 10x3/uL (0.0-0.2); %Basophils 0.2 % (0.0-1.0); %Eosinophils 2.6 % (0.0-10.0); %Lymphocytes 19.4 % (21.0-51.0); %Monocytes 9.8 % (0.0-10.0); %Neutrophils 67.6 % (42.0-75.0); Hematocrit 36.5 % (36.0-47.0); Hemoglobin 11.3 g/dL (12.0-16.0); Mean Corpuscular Hemoglobin 25.9 pg (27.0-31.0); Mean Corpuscular Volume 83.7 fL (78.0-98.0); Mean Platelet Volume 10.1 fL (7.4-10.4); Platelet Count 129 10x3/uL (130-400); RBC Distribution Width 14.1 % (11.5-14.5); Red Blood Cell (RBC) Count 4.36 mill/uL (4.20-5.40)
[2024-04-30 22:27] LABS: ALT (SGPT) 17 U/L (8-55); AST (SGOT) 24 U/L (5-34); Albumin 2.8 g/dL (3.4-4.8); Alkaline Phosphatase 84 U/L (40-110); Anion Gap 13 mmol/L (10-20); BUN (Urea Nitrogen) 27 mg/dL (9.8-20.1); Bilirubin, Total 0.3 mg/dL (0.2-1.2); Calc. Creatinine Clearance 0 mL/min (70-130); Calcium 9.1 mg/dL (7.8-10.44); Carbon Dioxide 28 mmol/L (23-31); Chloride 110 mmol/L (98-107); Estimated GFR 74; Glucose 90 mg/dL (83-110); Potassium 4.6 mmol/L (3.5-5.1); Protein, Total 7.8 g/dL (5.8-8.1); Sodium 146 mmol/L (136-145)
[2024-04-30] MEDS ORDERED: Ondansetron PF 4 MG/2 ML Vial IVP PRN (23:57)
[2024-04-30] MEDS ORDERED: Ketorolac Tromethamine 30 MG (1 mL) VIAL IVP PRN (23:57)
[2024-05-01] MEDS ORDERED: Saccharomyces boulardii 250 MG CAP PER TUBE PRN
[2024-05-01] MEDS ORDERED: Acetaminophen 500 MG TAB PER TUBE PRN
[2024-05-01] MEDS ORDERED: GUAIFENESIN SF SOLN 200 MG/10 ML UDCUP PER TUBE PRN
[2024-05-01] MEDS: D5 1/2 NS w/20 mEq KCL 1,000 ML IV SCH (00:46)
[2024-05-01 01:08] VITALS: BMI 26.4
[2024-05-01] MEDS: Cinacalcet HCl 30 MG TAB PER TUBE SCH (07:19)
[2024-05-01] MEDS: Carvedilol 6.25 MG TAB PER TUBE SCH (07:19)
[2024-05-01] MEDS: Enoxaparin 40 MG (0.4 mL) SYRINGE SC SCH (08:11)
[2024-05-01] MEDS: Famotidine/PF 20 mg/2ml Vial SLOW IVP SCH (08:13)
[2024-05-01] MEDS: levETIRAcetam 500 MG (5 mL) VIAL SLOW IVP SCH (08:13)
[2024-05-01 08:54] LABS: #Basophils Less than 0.03 10x3/uL (0.0-0.2); %Basophils 0.1 % (0.0-1.0); %Eosinophils 1.9 % (0.0-10.0); %Lymphocytes 20.1 % (21.0-51.0); %Monocytes 9.3 % (0.0-10.0); %Neutrophils 68.4 % (42.0-75.0); Hematocrit 37.5 % (36.0-47.0); Hemoglobin 11.5 g/dL (12.0-16.0); Mean Corpuscular HGB CONC 30.7 g/dL (32.0-36.0); Mean Corpuscular Hemoglobin 25.7 pg (27.0-31.0); Mean Corpuscular Volume 83.9 fL (78.0-98.0); Mean Platelet Volume 10.8 fL (7.4-10.4); Platelet Count 143 10x3/uL (130-400); RBC Distribution Width 14.1 % (11.5-14.5); Red Blood Cell (RBC) Count 4.47 mill/uL (4.20-5.40)
[2024-05-01 09:07] VITALS: BMI 26.4
[2024-05-01 09:19] LABS: ALT (SGPT) 16 U/L (8-55); AST (SGOT) 23 U/L (5-34); Albumin 2.9 g/dL (3.4-4.8); Alkaline Phosphatase 86 U/L (40-110); Anion Gap 12 mmol/L (10-20); BUN (Urea Nitrogen) 22 mg/dL (9.8-20.1); Bilirubin, Total 0.4 mg/dL (0.2-1.2); Calc. Creatinine Clearance 75 mL/min (70-130); Carbon Dioxide 26 mmol/L (23-31); Chloride 113 mmol/L (98-107); Estimated GFR 83; Globulin 5.1 g/dL (2.4-3.5); Glucose 80 mg/dL (83-110); Potassium 4.2 mmol/L (3.5-5.1); Sodium 147 mmol/L (136-145)
[2024-05-01] MEDS ORDERED: Lidocaine 2% 6 ML (Jelly) SYR ONE (10:24)
[2024-05-01] MEDS ORDERED: Sterile Water 10 ML ONE ×2 (10:24→11:35)
[2024-05-01] MEDS ORDERED: Iopamidol 30 ML ONE (10:25)
[2024-05-01] MEDS ORDERED: Sodium Chloride 0.9% 500 ML ONE (10:25)
[2024-05-01] MEDS ORDERED: Lidocaine 1% PF 5 ML VIAL ONE (11:04)
[2024-05-01] MEDS ORDERED: Sodium Bicarbonate 2.5 MEQ/5 ML SDV ONE ×2 (11:04→11:21)
[2024-05-01] MEDS ORDERED: Lidocaine 1% w/Epinephrine 1:100K 20 ML VIAL ONE (11:21)
[2024-05-01 13:47] LABS: Anion Gap 9 mmol/L (10-20); BUN (Urea Nitrogen) 20 mg/dL (9.8-20.1); Calc. Creatinine Clearance 81 mL/min (70-130); Calcium 9.2 mg/dL (7.8-10.44); Carbon Dioxide 25 mmol/L (23-31); Chloride 113 mmol/L (98-107); Estimated GFR 87; Glucose 84 mg/dL (83-110); Potassium 3.9 mmol/L (3.5-5.1); Sodium 143 mmol/L (136-145)
[2024-05-01 15:57] VITALS: BP 144/78; TEMP 98.5
[2024-05-01] MEDS ORDERED: Rosuvastatin 20 MG TAB PER TUBE SCH (21:00)
== END 2024-05-01 16:51 ==
LOC: ERS 21:18 → T4-B 23:21
PROVIDERS: ADMIT Internal Medicine; ATTEND Internal Medicine
PROC: 0DP6XUZ Removal of Feeding Device from Stomach, External Approach (ICD-10-PCS; principal; 2024-05-01)
PROC: 0DH60UZ Insertion of Feeding Device into Stomach, Open Approach (ICD-10-PCS; 2024-05-01)
DX: K94.23 Gastrostomy malfunction (principal); E86.0 Dehydration; E78.5 Hyperlipidemia, unspecified; I11.0 Hypertensive heart disease with heart failure; I50.30 Unspecified diastolic (congestive) heart failure; I25.10 Atherosclerotic heart disease of native coronary artery without angina pectoris; G40.909 Epilepsy, unspecified, not intractable, without status epilepticus; Z86.73 Personal history of transient ischemic attack (TIA), and cerebral infarction without residual deficits; Z88.1 Allergy status to other antibiotic agents; Z79.51 Long term (current) use of inhaled steroids; Z79.899 Other long term (current) drug therapy
CPT/HCPCS: 49450; 80048; 80053 ×2; 85025 ×2; 96360; 96361; 96374; 96375; 99285; B4088; C1725; C1769; G0378 ×2; J1953; J3480; J3490; J7030; J7042; Q9967; 36415